=== PATIENT | male | born 1970 | race Caucasian/White ===

== ENCOUNTER → 2019-05-28 14:13 | Outpatient (CLI) | payer MEDICARE, SELFPAY ==
[2019-05-28 14:17] LABS: Bacteria 0 SEEN /hpf (None Seen); Mucous, Urine 0 SEEN /hpf (<or=2+); Red Blood Cells-Urine 0 SEEN /hpf (0-5); White Blood Cells 0 SEEN /hpf (0-5)
[2019-05-28 15:18] LABS: Color, Urine Yellow (Yellow); Glucose, Dipstick Normal (Normal); Ketone-Dipstick Negative (Negative); Leukocyte Esterase-Dipstick Negative /ul (Negative); Nitrite-Dipstick Negative (Negative); Occult Blood-Urine Negative /ul (Negative); Protein-Dipstick Negative (Negative); Urine Bilirubin Dipstick Negative (Negative); Urine Clarity Clear (Clear); Urine Urobilinogen Normal (Normal)
[2019-05-28 15:21] LABS: Absolute Lymphocyte Count 4.27 X10^3/uL (0.83-4.51); Absolute Neutrophil Count 5.2 X10^3/uL (2.0-7.7); Basophil# 0.09 X10^3/uL; Basophil% 0.8 % (0-1); Eosinophil# 0.39 X10^3/uL; Eosinophils% 3.6 % (0-5); Hematocrit 48.4 % (40-54); Hemoglobin 16.4 g/dL (13.0-16.5); Lymphocyte # 4.27 X10^3/ul (4.0); Lymphocyte % 39.1 % (19-41); Mean Corp Hgb Conc 33.9 g/dL (32-36); Mean Corpuscular Hgb 30.5 pg (27.0-32.0); Mean Corpuscular Volume 90.1 fL (80-94); Mean Platelet Vol. 10.7 fl (6.2-12.0); Monocyte# 0.96 X10^3/uL; Monocyte% 8.8 % (0-10); NRBC Flagged by Analyzer 0 % (0-5); Neutrophil # 5.18 X10^3/uL (2.7-7.7); Neutrophil % 47.3 % (47-70); Platelet Count 303 K/mm3 (150-450); RBC Distribution Width CV 12.7 % (11.6-14.6); RBC Distribution Width SD 42.3 fl (35.1-43.9); Red Blood Count 5.37 M/mm3 (4.6-6.2); White Blood Count 10.9 K/mm3 (4.4-11.0)
[2019-05-28 15:24] LABS: Squamous Epithelial Cells - UA 0-5 SEEN /hpf (0-5)
[2019-05-28 15:42] LABS: Vitamin B12 567 pg/mL (211-911)
[2019-05-28 15:55] LABS: ALB/GLOB Ratio 1.3 RATIO (0.9-2.4); AST(SGOT) 21 U/L (15-37); Alanine Aminotransfer ALT/SGPT 56 U/L (16-61); Albumin, Serum 4.3 g/dL (3.2-5.0); Alkaline Phosphatase 74 U/L (45-117); Anion Gap 5 (5-15); BUN 11 mg/dL (7-18); BUN/Creat Ratio 12.6 RATIO (10-20); Calcium,Total 9.2 mg/dL (8.5-10.1); Chloride 106 mmol/L (98-107); Creatinine, Serum 0.87 mg/dL (0.70-1.30); EST Glomerular Filtration Rate 98 mL/min (>60); Est Glom Filt Rate - Afr Amer 119 mL/min (>60); Globulin 3.2 g/dL (2.2-4.2); Glucose 77 mg/dL (74-106); Potassium 3.6 mmol/L (3.5-5.1); Protein, Total 7.5 g/dL (6.4-8.2); Sodium Level 139 mmol/L (136-145); Thyroid Stim Hormone (TSH) 3.27 uIU/mL (0.358-3.74)
== END ==
PROVIDERS: PCP Family Medicine; Referring Provider Family Medicine; Visit Provider Family Medicine
DX: I10 Essential (primary) hypertension (principal); G62.9 Polyneuropathy, unspecified
CPT/HCPCS: 36415; 80053; 81001; 82607; 84443; 85025

== ENCOUNTER → 2021-03-08 13:02 | Outpatient (CLI) | payer MEDICARE, SELFPAY ==
[2021-03-08 14:15] LABS: Absolute Lymphocyte Count 3.24 X10^3/uL (0.83-4.51); Absolute Neutrophil Count 5.2 X10^3/uL (2.0-7.7); Basophil# 0.08 X10^3/uL; Basophil% 0.8 % (0-1); Eosinophil# 0.55 X10^3/uL; Eosinophils% 5.6 % (0-5); Hematocrit 47.3 % (40-54); Hemoglobin 16.4 g/dL (13.0-16.5); Lymphocyte # 3.24 X10^3/ul (0.83-4.51); Lymphocyte % 33.1 % (19-41); Mean Corp Hgb Conc 34.7 g/dL (32-36); Mean Corpuscular Hgb 30.9 pg (27.0-32.0); Mean Corpuscular Volume 89.2 fL (80-94); Mean Platelet Vol. 10.5 fl (6.2-12.0); Monocyte# 0.76 X10^3/uL; Monocyte% 7.8 % (0-10); NRBC Flagged by Analyzer 0 % (0-5); Neutrophil # 5.15 X10^3/uL (2.7-7.7); Neutrophil % 52.5 % (47-70); Platelet Count 358 K/mm3 (150-450); RBC Distribution Width CV 12.4 % (11.6-14.6); White Blood Count 9.8 K/mm3 (4.4-11.0)
[2021-03-08 15:08] LABS: ALB/GLOB Ratio 1.2 RATIO (0.9-2.4); AST(SGOT) 20 U/L (15-37); Alanine Aminotransfer ALT/SGPT 42 U/L (16-61); Albumin, Serum 4.2 g/dL (3.2-5.0); Alkaline Phosphatase 94 U/L (45-117); Anion Gap 5 (5-15); BUN 14 mg/dL (7-18); BUN/Creat Ratio 15.6 RATIO (10-20); Calcium,Total 9.7 mg/dL (8.5-10.1); Chloride 107 mmol/L (98-107); Cholesterol 145 mg/dL (200); EST Glomerular Filtration Rate 95 mL/min (>60); Est Glom Filt Rate - Afr Amer 115 mL/min (>60); Globulin 3.5 g/dL (2.2-4.2); Glucose 103 mg/dL (74-106); High Density Lipoprotein 42 mg/dL; PSA,Total - Annual Screen 0.74 ng/mL (0.00-4.00); Protein, Total 7.7 g/dL (6.4-8.2); Sodium Level 141 mmol/L (136-145); Triglycerides 164 mg/dL; Very Low Density Lipoprotein 33 mg/dL (5-40)
== END ==
PROVIDERS: PCP Internal Medicine; Referring Provider Internal Medicine; Visit Provider Internal Medicine
DX: I10 Essential (primary) hypertension (principal); E55.9 Vitamin D deficiency, unspecified; Z12.5 Encounter for screening for malignant neoplasm of prostate; Z86.73 Personal history of transient ischemic attack (TIA), and cerebral infarction without residual deficits
CPT/HCPCS: 36415; 80053; 80061; 82306; 84153; 85025; G0103

== ENCOUNTER 2022-02-17 10:14 | Outpatient (CLI) | payer MEDICARE, SELFPAY ==
--- NOTE | 2022-02-17 10:42 | CT_ITS ---
STUDY: CT TEMPORAL BONES WITHOUT CONTRAST - ATTN: I.A.C. S REASON FOR EXAM: Male, 51 years old. CHRONIC MASTOIDITIS RADIATION DOSAGE (If Supplied By Facility): CTDIvol = ( 67.58 ) mGy, DLP = ( 2001.26 ) mGycm TECHNIQUE: The patient was scanned in a multi detector CT scanner. Transaxial imaging was performed without the administration of intravenous contrast material. Sagittal and coronal images were reconstructed. Individualized dose optimization techniques were used for this CT. COMPARISON: None. FINDINGS: RIGHT TEMPORAL BONE Normal right internal auditory canal. Normal visualized ossicles and tympanic cavity. Normal right cochlea and semicircular canals. Normal vestibular aqueduct. Normal right petrous carotid artery. Normal right jugular fossa. Normal right mastoid air cells. Normal right petrous apex. LEFT TEMPORAL BONE Normal left internal auditory canal. Normal visualized ossicles and tympanic cavity. Normal left cochlea and semicircular canals. Normal vestibular aqueduct. Normal left petrous carotid artery. Normal right jugular fossa. Normal left mastoid air cells. Normal left petrous apex. CT/Orb Sella Post Fossa Ear W/WO IMPRESSION: Normal unenhanced CT examination of the bilateral temporal bones (I.A.C.''s). Electronically Signed: Roberto Dubois MD at 12:07 [facility] ,
[2022-02-17 10:55] LABS: CREATININE FINGERSTICK < 0.9 mg/dL (0.70-1.30); EGFR FINGERSTICK > 60.0000 mL/min (>60)
== END 2022-02-17 23:59 | disposition home or self-care (01) ==
PROVIDERS: PCP Internal Medicine; Referring Provider Otolaryngology Otolaryngology/Facial Plastic Surgery; Visit Provider Otolaryngology Otolaryngology/Facial Plastic Surgery
DX: H70.13 Chronic mastoiditis, bilateral (principal)
CPT/HCPCS: 70482; Q9967

== ENCOUNTER → 2022-05-13 | Outpatient (CLI) | payer MEDICARE, SELFPAY ==
[2022-05-13 09:45] LABS: Absolute Lymphocyte Count 3.44 X10^3/uL (0.83-4.51); Absolute Neutrophil Count 5.2 X10^3/uL (2.0-7.7); Basophil# 0.08 X10^3/uL; Basophil% 0.7 % (0-1); Eosinophil# 1.06 X10^3/uL; Eosinophils% 9.8 % (0-5); Hematocrit 50.6 % (40-54); Hemoglobin 17.1 g/dL (13.0-16.5); Lymphocyte # 3.44 X10^3/ul (0.83-4.51); Lymphocyte % 31.7 % (19-41); Mean Corp Hgb Conc 33.8 g/dL (32-36); Mean Corpuscular Hgb 30.7 pg (27.0-32.0); Mean Corpuscular Volume 90.8 fL (80-94); Mean Platelet Vol. 10.7 fl (6.2-12.0); Monocyte# 1.01 X10^3/uL; Monocyte% 9.3 % (0-10); NRBC Flagged by Analyzer 0 % (0-5); Neutrophil # 5.22 X10^3/uL (2.7-7.7); Platelet Count 336 K/mm3 (150-450); RBC Distribution Width CV 13.2 % (11.6-14.6); RBC Distribution Width SD 43.8 fl (35.1-43.9); Red Blood Count 5.57 M/mm3 (4.6-6.2); White Blood Count 10.9 K/mm3 (4.4-11.0)
[2022-05-13 10:21] LABS: ALB/GLOB Ratio 1.3 RATIO (0.9-2.4); AST(SGOT) 20 U/L (15-37); Alanine Aminotransfer ALT/SGPT 38 U/L (16-61); Alkaline Phosphatase 102 U/L (45-117); Anion Gap 6 (5-15); BUN 16 mg/dL (7-18); Calcium,Total 9.3 mg/dL (8.5-10.1); Chloride 106 mmol/L (98-107); Cholesterol 118 mg/dL (200); EST Glomerular Filtration Rate 83 mL/min (>60); Est Glom Filt Rate - Afr Amer 101 mL/min (>60); Globulin 3.1 g/dL (2.2-4.2); Glucose 112 mg/dL (74-106); High Density Lipoprotein 49 mg/dL; Protein, Total 7.1 g/dL (6.4-8.2); Sodium Level 140 mmol/L (136-145); Triglycerides 120 mg/dL; Very Low Density Lipoprotein 24 mg/dL (5-40)
== END | disposition home or self-care (01) ==
LOC: LAB 08:53
PROVIDERS: PCP Internal Medicine; Visit Provider Internal Medicine
DX: I10 Essential (primary) hypertension (principal); I63.9 Cerebral infarction, unspecified; E78.5 Hyperlipidemia, unspecified
CPT/HCPCS: 36415; 80053; 80061; 85025

== ENCOUNTER → 2022-05-18 | Outpatient (CLI) | payer MEDICARE, SELFPAY ==
--- NOTE | 2022-05-18 13:56 | ECHOD_ITS ---
Reason For Study: AORTIC ROOT DILATATION Procedure This was a 2D Doppler, Color Flow transthoracic echocardiogram. Exam performed in department. Left Ventricle Normal LV size. Left ventricular systolic function is normal. The estimated ejection fraction is 70 %. Normal diastology for age. No regional wall motion abnormalities noted. Right Ventricle Normal RV size. Normal systolic function. Atria Normal left atrium. Normal right atrium. Mitral Valve Normal mitral valve. Trivial eccentric mitral valve insufficiency. Tricuspid Valve Normal tricuspid valve. Mild tricuspid valve insufficiency. Pulmonary artery systolic pressure is 22 mmHg. Aortic Valve Normal aortic valve. Trisinus/trileaflet aortic valve. Pulmonic Valve Normal pulmonic valve. Great Vessels Normal aortic root. The ascending aorta is mild-moderately dilated. The pulmonary artery is normal size. Normal inferior vena cava. Pericardium/Pleural No pericardial effusion. MMode/2D Measurements & Calculations LVIDd: 4.9 cm IVSd: 0.81 cm Ao root diam: 3.7 cm LVIDs: 3.3 cm LVPWd: 0.87 cm RVDd: 3.5 cm FS: 32.6 % LAV(MOD-bp): 33.9 ml LVAd ap4: 37.3 cm2 SV(MOD-sp4): 81.0 ml LAV(MOD-bp) Indexed: 16.8 ml/m2 LVLd ap4: 9.2 cm LAV(MOD-sp2): 33.0 ml EDV(MOD-sp4): 123.3 ml LAV(MOD-sp4): 30.9 ml EDV(sp4-el): 127.8 ml LVAs ap4: 18.9 cm2 LVLs ap4: 7.3 cm ESV(MOD-sp4): 42.3 ml ESV(sp4-el): 41.6 ml EF(MOD-sp4): 65.7 % EF(sp4-el): 67.4 % SV(sp4-el): 86.2 ml LA A4 area: 12.5 cm2 LA dimension(2D): 3.0 cm RA A4 area: 12.0 cm2 Time Measurements MV dec time: 0.25 sec Doppler Measurements & Calculations MV E max etienne: 75.3 cm/sec Lat Peak E' Etienne: 12.8 cm/sec Med Peak E' Etienne: 9.4 cm/sec MV A max etienne: 56.0 cm/sec E/E' lat: 5.9 E/E' med: 8.0 MV E/A: 1.3 Ao V2 max: 150.4 cm/sec LV V1 max: 155.5 cm/sec PA V2 max: 91.9 cm/sec Ao max P.1 mmHg LV V1 max P.7 mmHg TR max etienne: 222.9 cm/sec TR max P.9 mmHg ECHO/Echo Complete Interpretation Summary Normal LV size. Left ventricular systolic function is normal. The estimated ejection fraction is 70 %. The ascending aorta is mild-moderately dilated.Measuring 4.1cm Pulmonary artery systolic pressure is 22 mmHg. Ordering Physician: Callie Brannon Referring Physician: CALLIE BRANNON Performed By: Mary Jensen RDCS
== END | disposition home or self-care (01) ==
LOC: CVS 13:53
PROVIDERS: PCP Internal Medicine; Visit Provider Internal Medicine
DX: T75.4XXA Electrocution, initial encounter (principal); I77.810 Thoracic aortic ectasia
CPT/HCPCS: 93306

== ENCOUNTER → 2024-11-18 | Outpatient (CLI) | payer MEDICARE, SELFPAY ==
--- NOTE | 2024-11-18 12:59 | CDU_ITS ---
Reason For Study Reason For Study: Carotid Atherosclerosis Rt. Velocities/BP Lt. Velocities/BP Prox CCA 106/12 cm/sec. Prox CCA 148/41 cm/sec. Mid CCA 100/17 cm/sec. Mid CCA 90/29 cm/sec. Dist CCA 73/18 cm/sec. Dist CCA 97/30 cm/sec. Prox ICA 0 cm/sec. Prox ICA 214/91 cm/sec. Mid ICA 0 cm/sec. Mid ICA 164/52 cm/sec. Dist ICA 0 cm/sec. Dist ICA 133/56 cm/sec. Rt. ICA/CCA = 0. Lt. ICA/CCA = 2.4. Prox ECA 117/27 cm/sec. Prox ECA 117/26 cm/sec. Rt. Vert. 92/37 cm/sec. Lt. Vert. 17/0 cm/sec. Right Extracranial There is heterogeneous, irregular atherosclerotic plaque noted in the right common carotid artery. There is heterogeneous, irregular atherosclerotic plaque noted in the right internal carotid artery. The right internal carotid artery is occluded. There is heterogeneous, irregular atherosclerotic plaque noted in the right external carotid artery. Antegrade flow is noted in the right vertebral artery. Left Extracranial There is heterogeneous, irregular atherosclerotic plaque noted in the left common carotid artery. There is heterogeneous, irregular atherosclerotic plaque noted in the left internal carotid artery. There is intimal thickening but no significant atherosclerotic plaque noted in the left external carotid artery. Antegrade flow is noted in the left vertebral artery. Very minimal flow noted Lt Vert A. Procedure Carotid Duplex 41618. This is a Carotid Duplex examination using B-mode, color flow and specral Doppler. Exam performed in department. 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 Moderate (50- 69%) stenosis left extracranial internal carotid. Flow within the vertebral arteries is antegrade bilaterally. However, minimal flow is noted in the left vertebral artery. Ordering Physician: Callie Henriquez Referring Physician: Callie Henriquez Performed By: Marifer Panda, [place], RVT
--- OUTSIDE RECORDS SUMMARY | 2024-11-18 22:54 | XMS RPT_ITS | CCD ---
Author Organization [facility] Care Team Providers Care Software Quality Test Engineer Name Role Phone Unavailable Primary Care Provider UnavailDr. Callie Morales Primary Care Provider Dr. Callie Henriquez Attending Provider [phone] Dr. Nick Reynolds Attending Provider [phone] Callie Henriquez MD Primary Care Provider Dr. Callie Henriquez MD Attending Provider Callie Henriquez Attending Unavailable Callie Henriquez Primary Care Unavailable Callie Henriquez Primary Care Unavailable Callie Henriquez Attending Unavailable Callie Henriquez Primary Care Unavailable Callie Henriquez Referring Unavailable Callie Henriquez Attending Unavailable Allergies Allergy Classification Reported Allergen(s) Allergy Type Date of Onset Reaction(s) Facility (1 source) bee venom Propensity to adverse reactions to drug 1 Anaphylaxis [facility] (4 sources) Penicillins; Translations: [Penicillins] Propensity to adverse reactions to drug 1 Anaphylaxis [facility] Work Phone: (1 source) Sulfonamides (Antibiotic) Propensity to adverse reactions to drug 1 Anaphylaxis [facility] Work Phone: (1 source) Sulfonamides (Antibiotic) Allergy to substance 3 unknown [facility] (1 source) Sulfonamides (Antibiotic) Allergy to substance 5 NEEDS FOLLOW-UP [facility] (1 source) Sulfonamides (Antibiotic) Drug allergy (disorder) 5 [facility] Repository Medications Current Medications Medication Drug Class(es) Dates Sig (Normalized) Sig (Original) acetaminophen 500 mg oral capsule (1 source) Start: 01-27-2025 take 1 capsule by mouth every six hours as needed Acetaminophen 500 mg capsule Active 500 mg PO EVERY 6 HOURS as needed April 29, 2024 1:00am amLODIPine 5 mg oral tablet (12 sources) Dihydropyridine Calcium Channel Anisa Start: 02-24-2021 End: 12-07-2023 take 1 tablet by mouth once daily Amlodipine 5 mg tablet Active 5 mg PO DAILY 90 December 07, 2023 3:31pm Start: 02-13-2021 take 1 tablet by gisela th once daily amLODIPine (NORVASC) 5 MG tablet Take 1 tablet by mouth daily 30 tablet 3 02/13/2021 Active Start: 02-11-2021 amLODIPine (NO RVASC) tablet 5 mg aspirin 81 mg delayed release oral tablet (12 sources) Platelet Aggregation Inhibitor, Nonsteroidal Anti-inflammatory Drug Start: 02-24-2021 End: 01-12-2024 Aspirin (Adult Low Dose Aspirin) 81 mg tablet,delayed release (DR/EC) Active 81 mg PO DAILY 90 January 12, 2024 11:04am Start: 02-13-2021 take 1 tablet by gisela th once daily aspirin 81 MG EC tablet Take 1 tablet by mouth daily 30 tablet 3 02/13/2021 Active Start: 02-10-2021 aspirin EC tab let 81 mg atorvastatin 80 mg oral tablet (13 sources) HMG-CoA Reductase Inhibitor Start: 02-24-2021 End: 12-07-2023 take 1 tablet by mouth once daily Atorvastatin 80 mg tablet Active 80 mg PO DAILY 90 December 07, 2023 3:31pm Start: 02-11-2021 take 1 tablet by gisela th once daily atorvastatin (LIPITOR) 80 MG tablet Take 1 tablet by mouth nightly 30 tablet 3 02/12/2021 Active Start: 02-09-2021 End: 02-11-2021 atorvastatin (LIPITOR) table t 40 mg clopidogrel 75 mg oral tablet (15 sources) P2Y12 Platelet Inhibitor Start: 02-24-2021 End: 12-07-2023 take 1 tablet by mouth once daily Clopidogrel (Plavix) 75 mg tablet Active 75 mg PO DAILY 90 December 07, 2023 3:31pm Start: 02-13-2021 take 1 tablet by gisela th once daily clopidogrel (PLAVIX) 75 MG tablet Take 1 tablet by mouth daily 30 tablet 2 02/13/2021 Active Start: 02-11-2021 clopidogrel (P LAVIX) tablet 75 mg Start: 02-10-2021 clopidogrel (P LAVIX) tablet 300 mg 0.4 ml enoxaparin sodium 100 mg/ml prefilled syringe (1 source) Low Molecular Weight Heparin Start: 02-10-2021 enoxaparin (LOVENOX) injection 40 mg labetalol hydrochloride 5 mg/ml injectable solution (2 sources) beta-Adrenergic Anisa Start: 02-09-2021 labetalol (NORMODYNE;TRANDATE) injection 10 mg levocetirizine dihydrochloride 5 mg oral tablet (2 sources) Histamine-1 Receptor Antagonist Start: 10-11-2021 take 1 tablet by mouth once daily as needed Levocetirizine 5 mg tablet Active 5 mg PO DAILY as needed for allergies 30 October 11, 2021 12:00am Multivitamin tablet (1 source) Start: 04-29-2024 Multivitamin tablet Active 1 {tbl} PO daily April 29, 2024 1:00am 2 ml ondansetron 2 mg/ml injection (1 source) Serotonin-3 Receptor Antagonist Start: 02-09-2021 ondansetron (ZOFRAN) injection 4 mg perflutren lipid microspheres (DEFINITY) injection 1.65 mg (1 source) Start: 02-09-2021 End: 02-12-2021 perflutren lipid microspheres (DEFINITY) injection 1.65 mg 1000 ml sodium chloride 9 mg/ml injection (7 sources) Start: 02-09-2021 End: 02-12-2021 sodium chloride flush 0.9 % injection 5-40 mL Start: 02-09-2021 0.9 % sodium c hloride infusion Start: 02-09-2021 End: 02-09-2021 0.9 % sodium chloride bolus Completed/Discontinued Medications Medication Drug Class(es) Dates Sig (Normalized) Sig (Original) cefuroxime 500 mg oral tablet (1 source) Cephalosporin Antibacterial Start: 10-30-2023 End: 04-29-2024 take 1 tablet by mouth twice daily Cefuroxime Axetil 500 mg tablet Discontinued 500 mg PO TWICE A DAY 14 October 30, 2023 12:00am April 29, 2024 11:10am fluticasone propionate 0.05 mg/actuat metered dose nasal spray (2 sources) Corticosteroid Start: 10-11-2021 End: 04-29-2024 Fluticasone Propionate 50 mcg/actuation spray,suspension Discontinued 1 NMA INTRANASAL TWICE A DAY as needed for allergies, congestion 16 October 11, 2021 12:00am April 29, 2024 11:08am administer into each nostril Start: 10-11-2021 take 1 spray(s) nasa l route twice daily Fluticasone Propionate Active 1 SPRAY INTRANASAL TWICE A DAY October 10, 2021 11:00pm administer into each nostril hydrocortisone 10 mg/ml / neomycin 3.5 mg/ml / polymyxin b [id number] unt/ml otic solution (6 sources) Aminoglycoside Antibacterial, Polymyxin-class Antibacterial, Corticosteroid Start: 06-21-2021 End: 05-09-2022 Ldzdzcwy-Cpkltftyb-St 3.5-10,000-1 mg/mL-unit/mL-% solution Discontinued 4 NMA OTIC THREE TIMES A DAY as needed for Ear infection October 11, 2021 3:51pm May 09, 2022 10:55am Start: 06-21-2021 End: 05-09-2022 Qoburfil-Itnysputl-Ga Discon tinued 4 DRP OTIC THREE TIMES A DAY October 11, 2021 2:51pm May 09, 2022 9:55am Problems Problem Classification Problem Date Documented Date Episodic/Chronic Acute cerebrovascular disease (8 sources) Cerebrovascular accident; Translations: [Cerebral infarction, unspecified] Onset: 02-09-2021 Chronic Aortic; peripheral; and visceral artery aneurysms (5 sources) Aortic root dilatation; Translations: [Thoracic aortic ectasia] Onset: 10-28-2024 05-09-2022 Chronic Disorders of lipid metabolism (8 sources) Hyperlipidemia; Translations: [Hyperlipidemia, unspecified] 02-24-2021 Chronic Essential hypertension (6 sources) Essential hypertension; Translations: [Essential (primary) hypertension] Onset: 02-09-2021 Chronic Heart valve disorders (1 source) Cardiac murmur, unspecified; Translations: [Cardiac murmur, unspecified] Onset: 10-28-2024 Episodic Joint disorders and dislocations; trauma-related (2 sources) Subluxation complex (vertebral); Translations: [Subluxation complex (vertebral) of rib cage] 11-01-2021 Episodic Late effects of cerebrovascular disease (2 sources) Sequela of cerebrovascular accident; Translations: [Unspecified sequelae of cerebral infarction] Onset: 10-28-2024 10-28-2024 Chronic Comment on above: right arm pain,numbn ess, pain right lateral chest wall Occlusion or stenosis of precerebral arteries (2 sources) Occlusion and stenosis of bilateral carotid arteries; Translations: [Occlusion and stenosis of unspecified carotid artery] Onset: 10-28-2024 Chronic Other injuries and conditions due to external causes (2 sources) Accident caused by electric current; Translations: [Electrocution, initial encounter] Onset: 02-09-2021 Episodic Other injuries and conditions due to external causes (2 sources) by electrocution; Translations: [Electrocution, initial encounter] 04-22-2021 Episodic Other injuries and conditions due to external causes (1 source) Electrocution, initial encounter; Translations: [Accident caused by unspecified electric current] 05-09-2022 Episodic Other nervous system disorders (2 sources) History of perforated tympanic membrane; Translations: [Personal history of other diseases of the nervous system and sense organs] 06-25-2021 Episodic Other nervous system disorders (1 source) Personal history of other diseases of the nervous system and sense organs; Translations: [Personal history of other disorders of nervous system and sense organs] 05-09-2022 Episodic Residual codes; unclassified (2 sources) Obstructive sleep apnea syndrome; Translations: [Obstructive sleep apnea (adult) (pediatric)] Onset: 02-09-2021 Chronic Residual codes; unclassified (2 sources) Tobacco use and exposure - finding; Translations: [Tobacco use] Onset: 02-09-2021 Episodic Spondylosis; intervertebral disc disorders; other back problems (1 source) Low back pain; Translations: [Lumbar back pain] 04-29-2024 Episodic Substance-related disorders (3 sources) Cigarette smoker ; Translations: [Nicotine dependence, cigarettes, uncomplicated] Onset: 10-28-2024 11-03-2022 Chronic Unclassified (1 source) Late effect of cerebrovascular accident (CVA) Unclassified (1 source) I63.9 - Cerebral infarction, unspecified,I69.30 - Unspecified sequelae of cerebral infarction Results Test Name Value Interpretation Reference Range Facility MR/BMS.[facility] 10-28-2024 MR/BMS.[facility] [address] [place], [place] [address] OFFICE VISIT Date of Service: 10/28/24 MR#: [id number] Acct: [id number] Name: JOSELITO GARRETT Rep #: [id number] : 1970 Provider: Dr. Callie richardson MD Age/Sex: 54/M Location: [facility] Status: Signed Intake Vital Signs 04/29/24 10:14 10/28/24 08:52 Height 6 ft 1 in 6 ft 1 in Weight: 170 lb 6 oz 173 lb 6 oz BMI 22.4 22.8 BP 147/86 H 161/96 H Blood Pressure Location Rt brachial Lt brachial Position Sitting Sitting Respiration 16 16 Pulse 71 62 Pulse Source Monitor Monitor Temp 98.6 F 98.9 F Temp Source Temporal Temporal Pulse Oximetry (%) 96 98 Oxygen Delivery Method room air room air Intake Visit Reasons: 6 M FU Chief Complaint: Right arm/side pain Tank Cooper Required: No Accompanied by: Self Is patient in pain?: Yes (Right shoulder/arm/side) Pain scale (1-10): 8 Allergies Penicillins Allergy (Severe, Verified 10/28/24 08:46) Anaphylaxis Sulfa (Sulfonamide Antibiotics) (sulfa drugs) Allergy (Verified 10/28/24 08:46) NEEDS FOLLOW-UP Medications ???Medication ???Instructions ???Recorded ???Confirmed ???Type levocetirizine 5 mg tablet 5 mg PO DAILY PRN allergies #30 10/28/24 Rx tabs amlodipine 5 mg tablet 5 mg PO DAILY #90 tabs 12/07/23 Rx atorvastatin 80 mg tablet 80 mg PO DAILY #90 tabs 12/07/23 0 10/28/24 Rx clopidogrel 75 mg tablet (Plavix) 75 mg PO DAILY #90 tabs 12/07/23 10/28/24 Rx aspirin 81 mg tablet,delayed 81 mg PO DAILY #90 tabs 01/12/24 0 10/28/24 Rx release (Adult Low Dose Aspirin) acetaminophen 500 mg capsule 500 mg PO Q6H PRN 04/29/24 5 History multivitamin 1 tab PO QDAY 04/29/24 10/28/24 Hi story [facility] Medical History Lumbar back pain Left toe amputee Surgical History History of surgery on left wrist Family History Other Heart disease Hypertension Social History Smoking Status: Current every day smoker alcohol intake: never substance use type: does not use HPI HPI Chief Complaint: Right arm/side pain Details: JOSELITO GARRETT, is a 54 M who presents to the office today for 6-month follow-up. Patient has a history of hypertension on amlodipine 5 mg daily. He also has a history of CVA, on high-dose statin, aspirin and Plavix regimen. He continues to have ongoing pain, in the right lateral chest wall area, or he has ongoing numbness tingling and discomfort, as well as the right upper extremity, tingling in his toes but that is not typically that bothersome for him. He wonders about pain management. Remotely he had been on gabapentin and does not want to do that again for the neurologic symptoms. We have discussed in the past about a trial of chiropractic to ensure that some of the discomfort is not coming from his neck perhaps. That had not been completed. We discussed in the past imaging of the neck but once again that has not been completed. He would like to see pain management and discuss with them. Consult was placed for Dr. Colby. Unfortunately does continue to smoke cigarettes, between a pack and 1/2 to 2 packs/day. 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 Carotid ultrasound should be updated at this point. He has been continuing to take high-dose statin for secondary prevention. He is also again on aspirin and Plavix. He does have a history of mildly to moderately dilated aortic root. Last echo was in 2022 and that should be updated. He continues to decline colonoscopy. We have sent Cologuard out but that had never been returned. He states he still has the box at home. Review of systems per chart. Physical exam. Vital signs on chart. PERRLA. Sclera are clear. TMs are unremarkable with normal light reflexes. Canals are unremarkable. Posterior pharynx is unremarkable. No obvious oral mucosal lesions. Good dentition. No cervical or supraclavicular lymph nodes enlarged or tender. No clear thyromegaly. No thyroid nodules readily palpable. Lungs are without wheeze, rhonchi, rales. No E/A changes are heard. Heart is regular. Not tachycardic. No clear murmur, rub, or gallop is identified. The abdomen is soft. Bowel sounds are present. Nontender nondistended abdomen. No clear palpable masses in the abdomen. No significant leg edema. Cranial nerve examination 2 through 12 are grossly unremarkable nonlateralizing. Deep tendon reflexes at the bicep, tricep, brachial on the right mildly hyperreflexic in comparison with the left. Mildly hyperreflexic at the right patella in comparison with the left. ROS Const Constitutional: No body ache, (more content not included)... Normal [facility] MR/BMS.[facility] 04-29-2024 MR/BMS.[facility] [address] [facility] [place] [address] OFFICE VISIT Date of Service: 04/29/24 MR#: [id number] Acct: [id number] Name: JOSELITO GARRETT Rep #: [id number] : 1970 Provider: Dr. Callie richardson MD Age/Sex: 53/M Location: [facility] Status: Signed Intake Vital Signs 10/30/23 09:49 04/29/24 10:14 Height 6 ft 1 in 6 ft 1 in Weight: 174 lb 6 oz 170 lb 6 oz BMI 23.0 22.4 BP 133/85 H 147/86 H Blood Pressure Location Lt brachial Rt brachial Position Sitting Sitting Respiration 16 16 Pulse 67 71 Pulse Source Monitor Monitor Temp 98.6 F 98.6 F Temp Source Temporal Temporal Pulse Oximetry (%) 99 96 Oxygen Delivery Method room air room air Intake Visit Reasons: 6 M FU Chief Complaint: 6 m fu Tank Cooper Required: No Accompanied by: Self Is patient in pain?: Yes (R side of body and back) Pain scale (1-10): 6 Allergies Penicillins Allergy (Severe, Verified 04/29/24 09:50) Anaphylaxis Sulfa (Sulfonamide Antibiotics) (sulfa drugs) Allergy (Verified 04/29/24 09:50) NEEDS FOLLOW-UP Medications ???Medication ???Instructions ???Recorded ???Confirmed ???Type levocetirizine 5 mg tablet 5 mg PO DAILY PRN allergies #30 10/11/21 04/29/24 Rx tabs amlodipine 5 mg tablet 5 mg PO DAILY #90 tabs 12/07/23 04/29/24 Rx atorvastatin 80 mg tablet 80 mg PO DAILY #90 tabs 12/07/23 04/29/24 Rx clopidogrel 75 mg tablet (Plavix) 75 mg PO DAILY #90 tabs 12/07/23 04/29/24 Rx aspirin 81 mg tablet,delayed 81 mg PO DAILY #90 tabs 01/12/24 04/29/24 Rx release (Adult Low Dose Aspirin) acetaminophen 500 mg capsule 500 mg PO Q6H PRN 04/29/24 04/29/24 History multivitamin 1 tab PO QDAY 04/29/24 04/29/24 History PFSH Medical History (Updated 04/29/24 @ 13:[address] Callie Henriquez MD) Lumbar back pain Left toe amputee Surgical History History of surgery on left wrist Family History Other Heart disease Hypertension Social History Smoking Status: Current every day smoker alcohol intake: never substance use type: does not use HPI HPI Chief Complaint: 6 m fu Details: JOSELITO GARRETT, is a 53 M who presents to the office today for 6-month follow-up. 53-year-old gentleman who has a history of CVA, several years ago, leaving him with right-sided numbness tingling, weakness. We discussed again briefly at this visit he is probably not going to gain much more improvements that he has at this point. Still remains clearly disappointed that he actually had stroke to begin with. He has essential hypertension, hyperlipidemia, and long-term cigarette smoker. Continues to smoke. Relatively recently, had right ear pain, with some drainage. Did go to urgent care, received antibiotic, and by description was probably Zithromax. He took that, and very quickly had resolution to his symptoms. Currently no pain no drainage. This has been an on again off again issue for him. More bothersome has been back pain relatively recently. He notes that he has a sleep number bed system at home. He states recently, some work was done in the home, and some changes were made in the bed and he really did not recognize what was happening but a couple of days in row he woke up in the morning with severe back pain, and then thereafter, really over the last couple of months, it sounds like he has been having ongoing back pain. He describes basically in the low back. He is does have some chronic discomfort on the right side post CVA but this is clearly different he states. There is no clear radicular symptoms. No loss of bowel or bladder continence, numbness and tingling in the perineal area. No new numbness or tingling in the legs that are any different than his poststroke symptoms. Remotely had seen chiropractic but nothing recent. He states that he has been unable to crack his back which she has done over the years in the past and that helps his low back he states. However has been unable to do so recently. Review of systems per chart. Physical exam. Vital signs on chart. PERRLA. Sclera are clear. No cervical or supraclavicular lymph nodes enlarged or tender. No clear thyromegaly. No thyroid nodules readily palpable. Lungs are without wheeze, rhonchi, rales. No E/A changes are heard. Heart is regular. Not tachycardic. No clear murmur, rub, or gallop is identified. The abdomen is soft. Bowel sounds are present. Nontender nondistended abdomen. No clear palpable masses in the abdomen. No significant leg edema. Cranial nerve examination 2 through 12 are grossly unremarkable nonlateralizing. No rash across the low back, mild diffuse paraspinal muscle spasm and tenderness throughout the lumbar reg (more content not included)... Normal [facility] Absolute lymphocyte countOrd ered By: Dr. Henriquez on 05-13-2022 Lymphocytes Auto (Unsp spec) [#/Vol] 3.44 10*3/uL 0.83-4.51 [facility] Basophil percentageOrdered B y: Dr. Henriquez on 05-13-2022 Basophils/100 WBC (Bld) 0.7 % 0-1 [facility] Bilirubin [Mass/Vol] 0.60 mg/dL 0.20-1.00 [facility] Comment on above: For patients on eltr ombopag therapy, use of Dimension Zeigler TBIL is not recommended. Chloride [Moles/Vol] 106 mmol/L 98-107 [facility] Cholesterol [Mass/Vol] 118 mg/dL <200 [facility] Comment on above: <200 mg/dL Desirable 200-240 mg/dL Borderline >240 mg/dL High Risk Eosinophils/100 WBC (Bld) 9.8 % 0-5 [facility] Glucose [Mass/Vol] 112 mg/dL 74-106 [facility] Comment on above: Fasting Glucose resu lt from 100 to 125 mg/dL suggests IMPAIRED HOMEOSTASIS per A.D.A. criteria. Neutrophils (Bld) [#/Vol] 5.2 10*3/uL 2.0-7.7 [facility] Neutrophils/100 WBC (Bld) 48.0 % 47-70 [facility] Potassium [Moles/Vol] 4.0 mmol/L 3.5-5.1 [facility] Protein [Mass/Vol] 7.1 g/dL 6.4-8.2 [facility] Sodium [Moles/Vol] 140 mmol/L 136-145 [facility] Triglyceride [Mass/Vol] 120 mg/dL <199 [facility] Comment on above: The drugs N-Acetylcy steine and Metamizole may falsely depress this assay.Serum Triglycerides Reference Interval Normal <150 mg/dL Borderline high 150 - 199 mg/dL High 200 - 499 mg/dL Very High > or = 500 mg/dL WBC (Bld) [#/Vol] 10.9 10*3/uL 4.4-11.0 [facility] Blood erythrocytes count (nu mber/volume)Ordered By: Dr. Henriquez on 05-13-2022 RBC (Bld) [#/Vol] 5.57 10*6/uL 4.6-6.2 [facility] Blood hemoglobin measurement (mass/volume)Ordered By: Dr. Henriquez on 05-13-2022 Hemoglobin (Bld) [Mass/Vol] 17.1 g/dL 13.0-16.5 [facility] Blood lymphocytes/100 leukoc ytesOrdered By: Dr. Henriquez on 05-13-2022 Lymphocytes/100 WBC (Bld) 31.7 % 19-41 [facility] Blood monocytes/100 leukocyt esOrdered By: Dr. Henriquez on 05-13-2022 Monocytes/100 WBC (Bld) 9.3 % 0-10 [facility] Blood platelet mean volumeOr dered By: Dr. Henriquez on 05-13-2022 Platelet mean volume (Bld) [Entitic vol] 10.7 fL 6.2-12.0 [facility] Determination of erythrocyte mean corpuscular volume (MCV)Ordered By: Dr. Henriquez on 05-13-2022 MCV (RBC) [Entitic vol] 90.8 fL 80-94 [facility] Hematocrit Auto (Bld) [Volum e fraction]Ordered By: Dr. Henriquez on 05-13-2022 Hematocrit (Bld) [Volume fraction] 50.6 % 40-54 [facility] Laboratory - Chemistry and C hemistry - challengeOrdered By: Dr. Henriquez on 05-13-2022 ALP [Catalytic activity/Vol] 102 U/L 45-117 [facility] ALT [Catalytic activity/Vol] 38 U/L 16-61 [facility] CO2 [Moles/Vol] 28.0 mmol/L 21.0-32.0 [facility] Globulin (S) [Mass/Vol] 3.1 g/dL 2.2-4.2 [facility] Urea nitrogen/Creatinine [Mass ratio] 16.0 mg/mg 10-20 [facility] Laboratory - Hematology and Cell countsOrdered By: Dr. Henriquez on 05-13-2022 Erythrocyte distribution width (RBC) [Entitic vol] 43.8 fL 35.1-43.9 [facility] Erythrocyte distribution width (RBC) [Ratio] 13.2 % 11.6-14.6 [facility] Immature granulocytes/100 WBC (Bld) 0.500 % 0.0-0.9 [facility] Comment on above: IG% - Immature Granu locytes (promyelocytes, myelocytes and metamyelocytes) > 1% indicates that a LEFT SHIFT is Present. MCH (RBC) [Entitic mass] 30.7 pg 27.0-32.0 [facility] Nucleated RBC/100 WBC (Bld) [Ratio] 0 % 0-5 [facility] MCHC Auto (RBC) [Mass/Vol]Or dered By: Dr. Henriquez on 05-13-2022 MCHC (RBC) [Mass/Vol] 33.8 g/dL 32-36 [facility] No Panel InformationOrdered By: Dr. Henriquez on 05-13-2022 Estimated GFR (MDRD) Amer 101 mL/min >60 [facility] Comment on above: GFR Calc Estimated GFR (MDRD) Non-Af Amer 83 mL/min >60 [facility] Comment on above: Non- GFR Calc Platelets bldOrdered By: Dr. Henriquez on 05-13-2022 Platelets (Bld) [#/Vol] 336 10*3/uL 150-450 [facility] Serum or plasma albumin ken urement (mass/volume)Ordered By: Dr. Henriquez on 05-13-2022 Albumin [Mass/Vol] 4.0 g/dL 3.2-5.0 [facility] Serum or plasma albumin/glob ulin mass ratioOrdered By: Dr. Henriquez on 05-13-2022 Albumin/Globulin [Mass ratio] 1.3 {ratio} 0.9-2.4 [facility] Serum or plasma calcium ken urement (mass/volume)Ordered By: Dr. Henriquez on 05-13-2022 Calcium [Mass/Vol] 9.3 mg/dL 8.5-10.1 [facility] Serum or plasma cholesterol in HDL measurement (mass/volume)Ordered By: Dr. Henriquez on 05-13-2022 Cholesterol in HDL [Mass/Vol] 49 mg/dL >40 [facility] Comment on above: The drugs N-Acetylcy steine and Metamizole may falsely depress this assay. Reference Range HDL <40 mg/dL Low HDL Cholesterol HDL >or= 60 mg/dL High HDL Cholesterol Serum or plasma cholesterol in VLDL measurement (mass/volume)Ordered By: Dr. Henriquez on 05-13-2022 Cholesterol in VLDL [Mass/Vol] 24 mg/dL 5-40 [facility] Serum or plasma creatinine m easurement (mass/volume)Ordered By: Dr. Henriquez on 05-13-2022 Creatinine [Mass/Vol] 1.00 mg/dL 0.70-1.30 [facility] Comment on above: The validity of the calculated GFR & GFRAA in patients over 70 years has not been determined. Clinical correlation is essential. Serum or plasma low density lipoprotein (LDL) cholesterol measurement (mass/volume)Ordered By: Dr. Henriquez on 05-13-2022 Cholesterol in LDL [Mass/Vol] 45 mg/dL 0-130 [facility] Serum or plasma urea nitroge n measurement (mass/volume)Ordered By: Dr. Henriquez on 05-13-2022 Urea nitrogen [Mass/Vol] 16 mg/dL 7-18 [facility] Thin prep Papanicolaou smear with manual screeningOrdered By: Dr. Henriquez on 05-13-2022 Thin prep Papanicolaou smear with manual screening 20 U/L 15-37 [facility] Thin prep Papanicolaou smear with manual screening 6 5-15 [facility] Basophil percentageOrdered B y: Dr. Landaverde on 02-17-2022 Basophil percentage < 0.9 mg/dL 0.70-1.30 [facility] No Panel InformationOrdered By: Dr. Landaverde on 02-17-2022 Bedside Estimated GFR (eGFR) > 60.0000 mL/min >60 [facility] Basic Metabolic Panelon 02-01 Anion gap [Moles/Vol] 8 mmol/L Normal 3-13 [facility] Comment on above: Performed By: #### H ABUNDIO LOVELL1C2 #### [facility] [employer] [facility] [address] [place] [address] Calcium [Mass/Vol] 8.7 mg/dL Normal 8.4-10.4 [facility] Comment on above: Performed By: #### H LILIYA HA1C2 #### [facility] [address] [place] [address] CO2 [Moles/Vol] 22 mmol/L Normal 22-30 [facility] Comment on above: Performed By: #### H ABUNDIO LOVELL1C2 #### [facility] [address] [place], [place] Glucose [Mass/Vol] 101 mg/dL High 70-100 [facility] Comment on above: Performed By: #### ABUNDIO RAPHAEL1C2 #### [facility] [address] [place], [place] Urea nitrogen [Mass/Vol] 11 mg/dL Normal 7-17 [facility] Comment on above: Performed By: #### ABUNDIO RAPHAEL1C2 #### [address] [address] [place], [place] Creatinine [Mass/Vol] 0.67 mg/dL Normal 0.52-1.25 [facility] Comment on above: Performed By: #### ABUNDIO RAPHAEL1C2 #### [facility] [address] [place], [place] eGFR OTHER > 90.0 Normal >60 [facility] Comment on above: Result Comment: KDIG O guidelines provide the following GFR categories: Stage GFR(ml/min/1.73 m2) Terms G1 >=90 Normal or high G2 60-89 Mildly decreased* G3a 45-59 Mildly to moderately decreased G3b 30-44 Moderately to severely decreased G4 15-29 Severely decreased G5 <15 Kidney failure *Relative to young adult level. In the absence of evidence of kidney damage, neither GFR category G1 nor G2 fulfill the criteria for CKD. The CKD-EPI equation is validated in individuals 18 years of age and older. Currently the best equation for estimating glomerular filtration rate (GFR) from serum creatinine in children is the Bedside Kenny equation. It is less accurate in patients with extremes of muscle mass, restriction of dietary protein, ingestion of creatine, extra-renal metabolism of creatinine, or treatment with medications that affect renal tubular creatinine secretion. Performed By: #### Derrek LOVELL HA1C2 #### [facility] [address] [place], [place] GFR/1.73 sq M.predicted among blacks MDRD (S/P/Bld) [Vol rate/Area] mL/min/{1.73_m2} Normal >60 [facility] Comment on above: Performed By: #### H LILIYA HA1C2 #### [facility] [address] [place], [place] Potassium [Moles/Vol] 3.7 mmol/L Normal 3.5-5.1 [facility] Comment on above: Performed By: #### H LILIYA HA1C2 #### [facility] [address] [place], [place] Sodium [Moles/Vol] 137 mmol/L Normal 135-145 [facility] Comment on above: Performed By: #### H LILIYA HA1C2 #### [facility] [address] [place], [place] Chloride [Moles/Vol] 108 mmol/L High 98-107 [facility] Comment on above: Performed By: #### H LILIYA HA1C2 #### [facility] [address] [place], [place] Anion gap [Moles/Vol] 8 mmol/L 3 - 13 mmol/L [facility] Calcium [Mass/Vol] 8.7 mg/dL 8.4 - 10. 4 mg/dL [facility] Chloride [Moles/Vol] 108 mmol/L High 98 - 10 7 mmol/L [facility] CO2 [Moles/Vol] 22 mmol/L 22 - 30 mmol/L [facility] Creatinine [Mass/Vol] 0.67 mg/dL 0.52 - 1.25 mg/dL [facility] EGFR IF NonAfrican Nigerian >90.0 >60 mL/min [facility] Comment on above: KDIGO guidelines pro vide the following GFR categories: Stage GFR(ml/min/1.73 m2) Terms G1 >=90 Normal or high G2 60-89 Mildly decreased* G3a 45-59 Mildly to moderately decreased G3b 30-44 Moderately to severely decreased G4 15-29 Severely decreased G5 <15 Kidney failure *Relative to young adult level. In the absence of evidence of kidney damage, neither GFR category G1 nor G2 fulfill the criteria for CKD. The CKD-EPI equation is validated in individuals 18 years of age and older. Currently the best equation for estimating glomerular filtration rate (GFR) from serum creatinine in children is the Bedside Kenny equation. It is less accurate in patients with extremes of muscle mass, restriction of dietary protein, ingestion of creatine, extra-renal metabolism of creatinine, or treatment with medications that affect renal tubular creatinine secretion. GFR/1.73 sq M.predicted among blacks MDRD (S/P/Bld) [Vol rate/Area] mL/min/{1.73_m2} >60 mL/min [facility] Glucose [Mass/Vol] 101 mg/dL High 70 - 100 mg/dL [facility] Interpretation and review of laboratory results Abnormal [facility] Potassium [Moles/Vol] 3.7 mmol/L 3.5 - 5.1 mmol/L [facility] Sodium [Moles/Vol] 137 mmol/L 135 - 145 mmol/L [facility] Urea nitrogen (BldV) [Mass/Vol] 11 mg/dL 7 - 17 mg/dL [facility] Test Performed by [id number] [place] [address] LAB [facility] CBC Auto Differentialon 02-01 Absolute Baso # 0.1 10*3/uL 0.0 - 0.2 10*3/uL [facility] Absolute Neut # 5.3 10*3/uL 1.8 - 7.0 10*3/uL [facility] Basophils/100 WBC (Bld) 0.7 % 0.0 - 2.0 % [facility] Eosinophils (Bld) [#/Vol] 0.4 10*3/uL 0.0 - 0.5 10*3/uL [facility] Eosinophils/100 WBC (Bld) 4.1 % 1.0 - 6.0 % [facility] Granulocytes/100 WBC (Bld) 50.5 % 40.0 - 80.0 % [facility] Hematocrit (Bld) [Volume fraction] 42.6 % 40.0 - 52.0 % [facility] Hemoglobin.gastrointes tinal spec 1 Ql (Stl) 14.5 g/dL 13.0 - 18.0 g/dL [facility] Interpretation and review of laboratory results Abnormal [facility] Lymphocytes (Bld) [#/Vol] 3.6 10*3/uL 1.0 - 4.3 10*3/uL [facility] Lymphocytes/100 WBC (Bld) 34.1 % 20.0 - 40.0 % [facility] MCH (RBC) [Entitic mass] 31.0 pg 26.0 - 34.0 pg [facility] MCHC (RBC) [Mass/Vol] 34.0 % 32.0 - 36.0 % [facility] MCV (RBC) [Entitic vol] 91.3 fL 80.0 - 98.0 fL [facility] Monocytes (Bld) [#/Vol] 1.1 10*3/uL High 0.0 - 0.8 10*3/uL [facility] Monocytes/100 WBC (Bld) 10.6 % High 2.0 - 10.0 % [facility] Platelet distribution width (Bld) [Ratio] 13.4 % 11.5 - 14.5 % [facility] Platelet mean volume (Bld) [Entitic vol] 8.2 fL 7.4 - 10.4 fL [facility] Platelets (Bld) [#/Vol] 283 10*3/uL 140 - 440 10*3/uL [facility] RBC (Bld) [#/Vol] 4.66 10*6/uL 4.40 - 5.9 0 10*6/uL [facility] WBC (Bld) [#/Vol] 10.6 10*3/uL 3.6 - 10.7 10*3/uL [facility] Test Performed by [address] [address] [facility] COVID-19on 02-12-2021 SARS-CoV-2 (COVID-19) RNA TAMIKO+probe Ql (Unsp spec) Not detected Not Detected [facility] Comment on above: Not Detected. Expected result: Not Detected _ Method: Real-time, RT-PCR Negative results do not preclude SARS-CoV-2 infection and should not be used as the sole basis for treatment or other patient management decisions. This assay was developed by [employer] and distributed under an Emergency Use Authorization (EUA) granted by the FDA for the qualitative detection of SARS-CoV-2 nucleic acid. Provider and patient fact sheets can be found at https://www.fda.gov/media/005239/download and https://www.fda.gov/media/043456/download. Test Performed by [address] [address] modified by KERRY at 15:39 on 02/12/21 previous comment was: Not Detected. [facility] Hemogram w/ Autodiffon 02-12 Abs Baso Cnt 0.1 10*3/uL Normal 0.0-0.2 [facility] Comment on above: Performed By: #### H ABUNDIO LOVELL1C #### [facility] [address] [place] [address] Abs Neutrophile Cnt 5.3 10*3/uL Normal 1.8-7.0 [facility] Comment on above: Performed By: #### H ABUNDIO LOVELL1C #### [address] [address] [place] [address] Basophils/100 WBC (Bld) 0.7 % Normal 0.0-2.0 [facility] Comment on above: Performed By: #### H ABUNDIO LOVELL1C #### [address] [address] [place] [address] Eosinophils (Bld) [#/Vol] 0.4 10*3/uL Normal 0.0-0.5 [facility] Comment on above: Performed By: #### ABUNDIO RAPHAEL1C #### [address] [address] [place] [address] Eosinophils/100 WBC (Bld) 4.1 % Normal 1.0-6.0 [facility] Comment on above: Performed By: #### H ABUNDIO LOVELL1C #### [address] [address] [place] [address] Erythrocyte distribution width (RBC) [Ratio] 13.4 % Normal 11.5-14.5 [facility] Comment on above: Performed By: #### Derrek LOVELL HA1C #### [address] [address] [place] [address] Granulocytes/100 WBC (Bld) 50.5 % Normal 40.0-80.0 [facility] Comment on above: Performed By: #### H LILIYA HA1C2 #### [address] [address] [place] [address] Hematocrit (Bld) [Volume fraction] 42.6 % Normal 40.0-52.0 [facility] Comment on above: Performed By: #### H LILIYA HA1C2 #### [facility] [address] [place], [place] Hemoglobin (Bld) [Mass/Vol] 14.5 g/dL Normal 13.0-18.0 [facility] Comment on above: Performed By: #### H LILIYA HA1C2 #### [facility] [address] [place], [place] Lymphocytes (Bld) [#/Vol] 3.6 10*3/uL Normal 1.0-4.3 [facility] Comment on above: Performed By: #### H LILIYA HA1C2 #### [address] [address] [address] [place], [place] Lymphocytes/100 WBC (Bld) 34.1 % Normal 20.0-40.0 [facility] Comment on above: Performed By: #### H LILIYA HA1C2 #### [address] [address] [address] [place], [place] MCH (RBC) [Entitic mass] 31.0 pg Normal 26.0-34.0 [facility] Comment on above: Performed By: #### H LILIYA HA1C2 #### [address] [address] [address] [place], [place] MCHC 34.0 % Normal 32.0-36.0 [facility] Comment on above: Performed By: #### H LILIYA HA1C2 #### [address] [address] [address] [place], [place] MCV (RBC) [Entitic vol] 91.3 fL Normal 80.0-98.0 [facility] Comment on above: Performed By: #### H LILIYA HA1C2 #### [address] [address] [address] [place], [place] Monocytes (Bld) [#/Vol] 1.1 10*3/uL High 0.0-0.8 [facility] Comment on above: Performed By: #### H EMODinh, HA1C2 #### [address] [address] [address] [place], [place] Monocytes/100 WBC (Bld) 10.6 % High 2.0-10.0 [facility] Comment on above: Performed By: #### STEPHANIE RAPHAEL2 #### [address] [address] [address] [place], [place] Platelet mean volume (Bld) [Entitic vol] 8.2 fL Normal 7.4-10.4 [facility] Comment on above: Performed By: #### STEPHANIE RAPHAEL2 #### [address] [address] [address] [place], [place] Platelets (Bld) [#/Vol] 283 10*3/uL Normal 140-440 [facility] Comment on above: Performed By: #### STEPHANIE RAPHAEL2 #### [address] [address] [place], [place] RBC (Bld) [#/Vol] 4.66 10*6/uL Normal 4.40-5.90 [facility] Comment on above: Performed By: #### STEPHANIE RAPHAEL2 #### [address] [address] [address] [place], [place] WBC (Bld) [#/Vol] 10.6 10*3/uL Normal 3.6-10.7 [facility] Comment on above: Performed By: #### STEPHANIE RAPHAEL2 #### [address] [address] [address] [place], [place] MRI BRAIN W WO CONTRASTon [id number] ACCESSION EXAM DATE/TIME PROCEDURE ORDERING PROVIDER [id number] 02/11/2021 17:27 EST MRI Brain w/ + w/o SARAH GREENE REBECCA K. Contrast CPT code 92446 Reason For Exam (MRI Brain w/ + w/o Contrast) ABNORMAL CTH Report EXAMINATION: MRI BRAIN WITH AND WITHOUT CONTRAST CLINICAL INDICATION: Follow-up abnormal head CT. Right-sided weakness. TECHNIQUE: Multi-planar multi-sequential MR imaging of the brain was performed before and after the intravenous administration of contrast. Nine ml of Gadavist was administered (the balance of single use vial(s) has/have been discarded). COMPARISON: Head CT 02/09/2021. 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 Linear blooming artifact in the left ambient/perimesenceph alic cistern (series 10 image 10), No mass effect or hemorrhagic conversion. There is moderate microangiopathic disease. No abnormal intracranial enhancement is identified. No hydrocephalus. No extra-axial fluid collections. The skull base flow voids are present. The visualized intraorbital contents are normal. Mild mucosal thickening of the paranasal sinuses. The mastoid air cells are clear. The visualized osseous structures, soft tissues and partially visualized parotid glands appear normal. IMPRESSION: Acute infarct in the left [employer] territory involving the left parahippocampal gyrus and left thalamus. No hemorrhagic conversion or mass effect. Linear susceptibility artifact in the left ambient/perimesenceph alic cistern, for which calcified thrombus within the left P2 segment cannot be excluded. Evaluation of the P2 segment on CTA is limited secondary to bolus timing. Moderate microangiopathic disease. Magnetic Resonance Imaging Report Report Dictated on --- Final --- Dictated: 02/12/2021 3:47 pm Dictating Physician: MD MARIBEL, LEODAN ORLNADO Signed Date and Time: 02/12/2021 4:02 pm Signed by: MD GONZALEZ WASSIM OSAMA Transcribed Date and Time: 02/12/2021 3:47 [facility] Leodan Gonzalez MD - 02/12/2021 [id number] Imaging ACCESSION EXAM DATE/TIME PROCEDURE ORDERING PROVIDER [id number] 02/11/2021 17:27 EST MRI Brain w/ + w/o SARAH GREENE, HARRIS Grimaldo Contrast CPT code 55555 Reason For Exam (MRI Brain w/ + w/o Contrast) ABNORMAL CTH Report EXAMINATION: MRI BRAIN WITH AND WITHOUT CONTRAST CLINICAL INDICATION: Follow-up abnormal head CT. Right-sided weakness. TECHNIQUE: Multi-planar multi-sequential MR imaging of the brain was performed before and after the intravenous administration of contrast. Nine ml of Gadavist was administered (the balance of single use vial(s) has/have been discarded). COMPARISON: Head CT 02/09/2021. 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 Linear blooming artifact in the left ambient/perimesenceph alic cistern (series 10 image 10), No mass effect or hemorrhagic conversion. There is moderate microangiopathic disease. No abnormal intracranial enhancement is identified. No hydrocephalus. No extra-axial fluid collections. The skull base flow voids are present. The visualized intraorbital contents are normal. Mild mucosal thickening of the paranasal sinuses. The mastoid air cells are clear. The visualized osseous structures, soft tissues and partially visualized parotid glands appear normal. IMPRESSION: Acute infarct in the left [employer] territory involving the left parahippocampal gyrus and left thalamus. No hemorrhagic conversion or mass effect. Linear susceptibility artifact in the left ambient/perimesenceph alic cistern, for which calcified thrombus within the left P2 segment cannot be excluded. Evaluation of the P2 segment on CTA is limited secondary to bolus timing. Moderate microangiopathic disease. Magnetic Resonance Imaging Report Report Dictated on --- Final --- Dictated: 02/12/2021 3:47 pm Dictating Physician: MD MARIBEL, LEODAN ORLANDO Signed Date and Time: 02/12/2021 4:02 pm Signed by: MD MARIBEL, LEODAN ORLANDO Transcribed Date and Time: 02/12/2021 3:47 [facility] Work Phone: MRI BRAIN W WO CONTRASTOrder ed By: Leodan Gonzalez on 02-12-2021 [facility] Work Phone: [id number] 02-12-2021 SARS-CoV-2 (COVID-19) RNA TAMIKO+probe Ql (Unsp spec) SARS-CoV-2 --> Status: F Not Detected. Expected result: Not Detected _ Method: Real-time, RT-PCR Negative results do not preclude SARS-CoV-2 infection and should not be used as the sole basis for treatment or other patient management decisions. This assay was developed by [employer] and distributed under an Emergency Use Authorization (EUA) granted by the FDA for the qualitative detection of SARS-CoV-2 nucleic acid. Provider and patient fact sheets can be found at https://www.[facility].gov/ edia/950467/download and https://www.[facility].gov/ edia/144185/download. Expected result: Not Detected _ Method: Real-time, RT-PCR Negative results do not preclude SARS-CoV-2 infection and should not be used as the sole basis for treatment or other patient management decisions. This assay was developed by [employer] and distributed under an Emergency Use Authorization (EUA) granted by the FDA for the qualitative detection of SARS-CoV-2 nucleic acid. Provider and patient fact sheets can be found at https://www.[facility].gov/ edia/462409/download and https://www.[facility].gov/ edia/892359/download. modified by KERRY at 15:39 on 02/12/21 previous comment was: Not Detected. Normal [facility] Comment on above: Performed By: #### H ABUNDIO LOVELL1C2 #### [facility] [address] [place], [place] Basic Metabolic Panelon 11- Calcium [Mass/Vol] 8.6 mg/dL Normal 8.4-10.4 [facility] Comment on above: Performed By: #### ABUNDIO RAPHAEL1C2 #### [address] [address] [address] [place], [place] Glucose [Mass/Vol] 97 mg/dL Normal 70-100 [facility] Comment on above: Performed By: #### ABUNDIO RAPHAEL1C2 #### [address] [address] [place], [place] Urea nitrogen [Mass/Vol] 13 mg/dL Normal 7-17 [facility] Comment on above: Performed By: #### ABUNDIO RAPHAEL1C2 #### [address] [address] [place], [place] Anion gap [Moles/Vol] 7 mmol/L Normal 3-13 [facility] Comment on above: Performed By: #### Derrek LOVELL HA1C2 #### [address] [place] [address] CO2 [Moles/Vol] 22 mmol/L Normal 22-30 [facility] Comment on above: Performed By: #### H STEPHANIE LOVELL #### [facility] [address] [place], [place] Creatinine [Mass/Vol] 0.60 mg/dL Normal 0.52-1.25 [facility] Comment on above: Performed By: #### H STEPHANIE LOVELL2 #### [facility] [address] [place], [place] eGFR OTHER > 90.0 Normal >60 [facility] Comment on above: Result Comment: KDIG O guidelines provide the following GFR categories: Stage GFR(ml/min/1.73 m2) Terms G1 >=90 Normal or high G2 60-89 Mildly decreased* G3a 45-59 Mildly to moderately decreased G3b 30-44 Moderately to severely decreased G4 15-29 Severely decreased G5 <15 Kidney failure *Relative to young adult level. In the absence of evidence of kidney damage, neither GFR category G1 nor G2 fulfill the criteria for CKD. The CKD-EPI equation is validated in individuals 18 years of age and older. Currently the best equation for estimating glomerular filtration rate (GFR) from serum creatinine in children is the Bedside Kenny equation. It is less accurate in patients with extremes of muscle mass, restriction of dietary protein, ingestion of creatine, extra-renal metabolism of creatinine, or treatment with medications that affect renal tubular creatinine secretion. Performed By: #### H STEPHANIE LOVELL #### [facility] [address] [place], [place] GFR/1.73 sq M.predicted among blacks MDRD (S/P/Bld) [Vol rate/Area] mL/min/{1.73_m2} Normal >60 [facility] Comment on above: Performed By: #### H STEPHANIE LOVELL #### [address] Potassium [Moles/Vol] 3.8 mmol/L Normal 3.5-5.1 [facility] Comment on above: Performed By: #### H STEPHANIE LOVELL2 #### [address] Chloride [Moles/Vol] 108 mmol/L High 98-107 [facility] Comment on above: Performed By: #### H STEPHANIE LOVELL2 #### [facility] [address] [place], [place] Sodium [Moles/Vol] 137 mmol/L Normal 135-145 [facility] Comment on above: Performed By: #### H ABUNDIO LOVELL1C2 #### [facility] [address] [place], [place] Anion gap [Moles/Vol] 7 mmol/L 3 - 13 mmol/L [facility] Calcium [Mass/Vol] 8.6 mg/dL 8.4 - 10. 4 mg/dL [facility] Chloride [Moles/Vol] 108 mmol/L High 98 - 10 7 mmol/L [facility] CO2 [Moles/Vol] 22 mmol/L 22 - 30 mmol/L [facility] Creatinine [Mass/Vol] 0.6 mg/dL 0.52 - 1.25 mg/dL [facility] EGFR IF NonAfrican Nigerian >90.0 >60 mL/min [facility] Comment on above: KDIGO guidelines pro vide the following GFR categories: Stage GFR(ml/min/1.73 m2) Terms G1 >=90 Normal or high G2 60-89 Mildly decreased* G3a 45-59 Mildly to moderately decreased G3b 30-44 Moderately to severely decreased G4 15-29 Severely decreased G5 <15 Kidney failure *Relative to young adult level. In the absence of evidence of kidney damage, neither GFR category G1 nor G2 fulfill the criteria for CKD. The CKD-EPI equation is validated in individuals 18 years of age and older. Currently the best equation for estimating glomerular filtration rate (GFR) from serum creatinine in children is the Bedside Kenny equation. It is less accurate in patients with extremes of muscle mass, restriction of dietary protein, ingestion of creatine, extra-renal metabolism of creatinine, or treatment with medications that affect renal tubular creatinine secretion. GFR/1.73 sq M.predicted among blacks MDRD (S/P/Bld) [Vol rate/Area] mL/min/{1.73_m2} >60 mL/min [facility] Glucose [Mass/Vol] 97 mg/dL 70 - 100 mg/dL [facility] Interpretation and review of laboratory results Abnormal [facility] Potassium [Moles/Vol] 3.8 mmol/L 3.5 - 5.1 mmol/L [facility] Sodium [Moles/Vol] 137 mmol/L 135 - 145 mmol/L [facility] Urea nitrogen (BldV) [Mass/Vol] 13 mg/dL 7 - 17 mg/dL [facility] Test Performed by [facility], [address] [place] [id number] [facility] CBC Auto Differentialon 02-01 Absolute Baso # 0.1 10*3/uL 0.0 - 0.2 10*3/uL [facility] Absolute Neut # 5.6 10*3/uL 1.8 - 7.0 10*3/uL [facility] Basophils/100 WBC (Bld) 0.5 % 0.0 - 2.0 % [facility] Eosinophils (Bld) [#/Vol] 0.5 10*3/uL 0.0 - 0.5 10*3/uL [facility] Eosinophils/100 WBC (Bld) 3.9 % 1.0 - 6.0 % [facility] Granulocytes/100 WBC (Bld) 48.0 % 40.0 - 80.0 % [facility] Hematocrit (Bld) [Volume fraction] 42.0 % 40.0 - 52.0 % [facility] Hemoglobin.gastrointes tinal spec 1 Ql (Stl) 14.0 g/dL 13.0 - 18.0 g/dL [facility] Interpretation and review of laboratory results Abnormal [facility] Lymphocytes (Bld) [#/Vol] 4.5 10*3/uL High 1.0 - 4.3 10*3/uL [facility] Lymphocytes/100 WBC (Bld) 38.0 % 20.0 - 40.0 % [facility] MCH (RBC) [Entitic mass] 30.8 pg 26.0 - 34.0 pg [facility] MCHC (RBC) [Mass/Vol] 33.4 % 32.0 - 36.0 % [facility] MCV (RBC) [Entitic vol] 92.3 fL 80.0 - 98.0 fL [facility] Monocytes (Bld) [#/Vol] 1.1 10*3/uL High 0.0 - 0.8 10*3/uL [facility] Monocytes/100 WBC (Bld) 9.6 % 2.0 - 10.0 % [facility] Platelet distribution width (Bld) [Ratio] 13.4 % 11.5 - 14.5 % [facility] Platelet mean volume (Bld) [Entitic vol] 8.9 fL 7.4 - 10.4 fL [facility] Platelets (Bld) [#/Vol] 283 10*3/uL 140 - 440 10*3/uL [facility] RBC (Bld) [#/Vol] 4.55 10*6/uL 4.40 - 5.9 0 10*6/uL [facility] WBC (Bld) [#/Vol] 11.8 10*3/uL High 3.6 - 10.7 10*3/uL [facility] Test Performed by [address] LAB [facility] Hemoglobin A1Con 02-11-2021 Glucose [Mass/Vol] 103 mg/dL Normal [facility] Comment on above: Performed By: #### H ABUNDIO LOVELL1C2 #### [address] HbA1c (Bld) [Mass fraction] 5.2 % Normal [facility] Comment on above: Result Comment: Norm al less than 5.7% Prediabetes 5.7% to 6.4% Diabetes 6.5% or higher --HgbA1C levels may not be accurate in patients who have renal disease, received recent blood transfusions, are anemic, or who have dyshemoglobinemia. Performed By: #### H ABUNDIO LOVELL1C2 #### [address] HbA1c (Bld) [Mass fraction] 5.2 % [facility] Comment on above: Normal less than 5.7 % Prediabetes 5.7% to 6.4% Diabetes 6.5% or higher --HgbA1C levels may not be accurate in patients who have renal disease, received recent blood transfusions, are anemic, or who have dyshemoglobinemia. Magnesium [Mass/Vol] 103 mg/dL [facility] A Test Performed by [facility], [address] [place] [id number] [facility]/ Autodiffon [facility]-11 Abs Baso Cnt 0.1 10*3/uL Normal 0.0-0.2 [facility] Comment on above: Performed By: #### H A1C2, BMP3, HEMDF #### [address] [address] [place] [address] Abs Neutrophile Cnt 5.6 10*3/uL Normal 1.8-7.0 [facility] Comment on above: Performed By: #### H A1C2, BMP3, HEMDF #### [address] [address] [place] [address] Basophils/100 WBC (Bld) 0.5 % Normal 0.0-2.0 [facility] Comment on above: Performed By: #### H A1C2, BMP3, HEMDF #### [address] [address] [place] [address] Eosinophils (Bld) [#/Vol] 0.5 10*3/uL Normal 0.0-0.5 [facility] Comment on above: Performed By: #### H A1C2, BMP3, HEMDF #### [address] [address] [place] [address] Eosinophils/100 WBC (Bld) 3.9 % Normal 1.0-6.0 [facility] Comment on above: Performed By: #### H A1C2, BMP3, HEMDF #### [address] [address] Erythrocyte distribution width (RBC) [Ratio] 13.4 % Normal 11.5-14.5 [facility] Comment on above: Performed By: #### H A1C2, BMP3, HEMDF #### [address] [address] [place] [address] Granulocytes/100 WBC (Bld) 48.0 % Normal 40.0-80.0 [facility] Comment on above: Performed By: #### H A1C2, BMP3, HEMDF #### [address] [address] [place] [address] Hematocrit (Bld) [Volume fraction] 42.0 % Normal 40.0-52.0 [facility] Comment on above: Performed By: #### H A1C2, BMP3, HEMDF #### [address] [address] [address] [place], [place] Hemoglobin (Bld) [Mass/Vol] 14.0 g/dL Normal 13.0-18.0 [facility] Comment on above: Performed By: #### H A1C2, BMP3, HEMDF #### [address] [address] [address] [place], [place] Lymphocytes (Bld) [#/Vol] 4.5 10*3/uL High 1.0-4.3 [facility] Comment on above: Performed By: #### H A1C2, BMP3, HEMDF #### [address] [address] [place], [place] Lymphocytes/100 WBC (Bld) 38.0 % Normal 20.0-40.0 [facility] Comment on above: Performed By: #### H A1C2, BMP3, HEMDF #### [address] [address] [place], [place] MCH (RBC) [Entitic mass] 30.8 pg Normal 26.0-34.0 [facility] Comment on above: Performed By: #### H A1C2, BMP3, HEMDF #### [address] [address] [place] MCHC 33.4 % Normal 32.0-36.0 [facility] Comment on above: Performed By: #### H A1C2, BMP3, HEMDF #### [address] [address] [address] [place], [place] MCV (RBC) [Entitic vol] 92.3 fL Normal 80.0-98.0 [facility] Comment on above: Performed By: #### H A1C2, BMP3, HEMDF #### [address] Monocytes (Bld) [#/Vol] 1.1 10*3/uL High 0.0-0.8 [facility] Comment on above: Performed By: #### H A1C2, BMP3, HEMDF #### [address] [address] [address] [place], [place] Monocytes/100 WBC (Bld) 9.6 % Normal 2.0-10.0 [facility] Comment on above: Performed By: #### H A1C2, BMP3, HEMDF #### [facility] [address] [place], [place] Platelet mean volume (Bld) [Entitic vol] 8.9 fL Normal 7.4-10.4 [facility] Comment on above: Performed By: #### H A1C2, BMP3, HEMDF #### [facility] [address] [place], [place] Platelets (Bld) [#/Vol] 283 10*3/uL Normal 140-440 [facility] Comment on above: Performed By: #### H A1C2, BMP3, HEMDF #### [address] [address] [address] [place], [place] RBC (Bld) [#/Vol] 4.55 10*6/uL Normal 4.40-5.90 [facility] Comment on above: Performed By: #### H A1C2, BMP3, HEMDF #### [facility] [address] [place], [place] WBC (Bld) [#/Vol] 11.8 10*3/uL High 3.6-10.7 [facility] Comment on above: Performed By: #### H A1C2, BMP3, HEMDF #### [address] [address] [address] [place], [place] MRI BRAIN W WO CONTRASTon Radiology Study observation (narrative) [facility] Work Phone: MRI Brain w/ + w/o Contrasto n 02-11-2021 MRI Brain w/ + w/o Contrast Patient Name: JOSELITO GARRETT Magnetic Resonance Imaging ACCESSION EXAM DATE/TIME PROCEDURE ORDERING PROVIDER [id number] 02/11/2021 17:27 EST MRI Brain w/ + w/o SARAH GREENE, HARRIS Grimaldo Contrast CPT code 70151 Reason For Exam (MRI Brain w/ + w/o Contrast) ABNORMAL CTH Report EXAMINATION: MRI BRAIN WITH AND WITHOUT CONTRAST CLINICAL INDICATION: Follow-up abnormal head CT. Right-sided weakness. TECHNIQUE: Multi-planar multi-sequential MR imaging of the brain was performed before and after the intravenous administration of contrast. Nine ml of Gadavist was administered (the balance of single use vial(s) has/have been discarded). COMPARISON: Head CT 02/09/2021. 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 Linear blooming artifact in the left ambient/perimesenceph alic cistern (series 10 image 10), No mass effect or hemorrhagic conversion. There is moderate microangiopathic disease. No abnormal intracranial enhancement is identified. No hydrocephalus. No extra-axial fluid collections. The skull base flow voids are present. The visualized intraorbital contents are normal. Mild mucosal thickening of the paranasal sinuses. The mastoid air cells are clear. The visualized osseous structures, soft tissues and partially visualized parotid glands appear normal. IMPRESSION: Acute infarct in the left [employer] territory involving the left parahippocampal gyrus and left thalamus. No hemorrhagic conversion or mass effect. Linear susceptibility artifact in the left ambient/perimesenceph alic cistern, for which calcified thrombus within the left P2 segment cannot be excluded. Evaluation of the P2 segment on CTA is limited secondary to bolus timing. Moderate microangiopathic disease. Magnetic Resonance Imaging Report Report Dictated on Final Dictated: 02/12/2021 3:47 pm Dictating Physician: MD MARIBEL, LEODAN ORLANDO Signed Date and Time: 02/12/2021 4:02 pm Signed by: MD GONZALEZ WASSIM OSAMA Transcribed Date and Time: 02/12/2021 3:[address] [facility] [facility] VL CAROTID BILATERALon 02-11 [facility] -------- Carotid Duplex Report Patient DO HangB: 1970 Study 02/11/2021 Name: Joselito (50yrs) Date: Age: 50 Account: [id number] Gender: M Loc: 3349 BP: Ordering Physician: Afia Nielson Data Software Engineer: Lisa Maria RVT Interpreting Physician: Tani Dominguez MD -------- Location: [facility] -------- Indications: Carotid stenosis. Stroke. -------- Conclusions 1. Normal antegrade flow involving the left vertebral artery. 2. Normal antegrade flow involving the right vertebral artery. 3. Mild carotid disease present with less than 50% stenosis involving the left internal carotid artery. 4. Study shows a 100%, occluded involving the right internal carotid artery. -------- History: Risk factors: Current tobacco use. Hypertension. Age over 50 years. -------- Study data: Complete carotid duplex study. Grayscale 2D imaging, color Doppler imaging, and spectral Doppler analysis. Location: Bedside. Procedure: A vascular evaluation was performed with the patient in the supine position. Images were obtained using a [employer] E9 vascular ultrasound machine. -------- Findings Carotid/vertebral arteries: Right common carotid: The vessel has moderate , irregular , and heterogeneous plaque. Right internal carotid: The vessel has moderate , calcified , and heterogeneous plaque. Right external carotid: The vessel has moderate , irregular , and heterogeneous plaque. Right vertebral: The arterial flow direction is antegrade. Left vertebral: The arterial flow direction is antegrade. Left common carotid: The vessel has moderate , irregular , and heterogeneous plaque. Left internal carotid: The vessel has moderate , irregular , and heterogeneous plaque. Left external carotid: The vessel has moderate , irregular , and heterogeneous plaque. -------- Arterial flow: + +----- ------+ +-- +-------- -------+ +Location +PSV(cm/sec)+EDV(cm/s ec)+Flow analysis +Comment + + +----- ------+ +-- +-------- -------+ +R CCA , prox +103 +19 + +----- + + +----- ------+ +-- +-------- -------+ +R CCA , mid +81 +13 + +----- + + +----- ------+ +-- +-------- -------+ +R CCA , distal+64 +13 + +----- + + +----- ------+ +-- +-------- -------+ +R ICA , prox +0 +0 + +No flow + + + + + +visualized. + + +----- ------+ +-- +-------- -------+ +R ICA , mid +0 +0 + +No flow + + + + + +visualized. + + +----- ------+ +-- +-------- -------+ +R ICA , distal+65 +9 + +Retr ograde flow+ + + + + +into distal + + + + + +from + + + + + +collateral? + + +----- ------+ +-- +-------- -------+ +R ECA +89 +21 + +----- + + +----- ------+ +-- +-------- -------+ +R vertebral +67 +23 +Antegrade flow+ + + +----- ------+ +-- +-------- -------+ +R subclavian +178 +13 + +----- + + +----- ------+ +-- +-------- -------+ +L CCA , prox +139 +37 + +----- + + +----- ------+ +-- +-------- -------+ +L CCA , mid +94 +32 + +----- + + +----- ------+ +-- +-------- -------+ +L CCA , distal+79 +27 + +----- + + +----- ------+ +-- +-------- -------+ +L (more content not included)... [facility] - 02/11/2021 [facility] -------- Carotid Duplex Report Patient DO HangB: 1970 Study 02/11/2021 Name: Joselito (50yrs) Date: Age: 50 Account: [id number] Gender: M Loc: 3349 BP: Ordering Physician: Afia Nielson Data Software Engineer: Lisa Maria RVT Interpreting Physician: Tani Dominguez MD -------- Location: [facility] -------- Indications: Carotid stenosis. Stroke. -------- Conclusions 1. Normal antegrade flow involving the left vertebral artery. 2. Normal antegrade flow involving the right vertebral artery. 3. Mild carotid disease present with less than 50% stenosis involving the left internal carotid artery. 4. Study shows a 100%, occluded involving the right internal carotid artery. -------- History: Risk factors: Current tobacco use. Hypertension. Age over 50 years. -------- Study data: Complete carotid duplex study. Grayscale 2D imaging, color Doppler imaging, and spectral Doppler analysis. Location: Bedside. Procedure: A vascular evaluation was performed with the patient in the supine position. Images were obtained using a [employer] E9 vascular ultrasound machine. -------- Findings Carotid/vertebral arteries: Right common carotid: The vessel has moderate , irregular , and heterogeneous plaque. Right internal carotid: The vessel has moderate , calcified , and heterogeneous plaque. Right external carotid: The vessel has moderate , irregular , and heterogeneous plaque. Right vertebral: The arterial flow direction is antegrade. Left vertebral: The arterial flow direction is antegrade. Left common carotid: The vessel has moderate , irregular , and heterogeneous plaque. Left internal carotid: The vessel has moderate , irregular , and heterogeneous plaque. Left external carotid: The vessel has moderate , irregular , and heterogeneous plaque. -------- Arterial flow: + +----- ------+ +-- +-------- -------+ +Location +PSV(cm/sec)+EDV(cm/s ec)+Flow analysis +Comment + + +----- ------+ +-- +-------- -------+ +R CCA , prox +103 +19 + +----- + + +----- ------+ +-- +-------- -------+ +R CCA , mid +81 +13 + +----- + + +----- ------+ +-- +-------- -------+ +R CCA , distal+64 +13 + +----- + + +----- ------+ +-- +-------- -------+ +R ICA , prox +0 +0 + +No flow + + + + + +visualized. + + +----- ------+ +-- +-------- -------+ +R ICA , mid +0 +0 + +No flow + + + + + +visualized. + + +----- ------+ +-- +-------- -------+ +R ICA , distal+65 +9 + +Retro grade flow+ + + + + +into distal + + + + + +from + + + + + +collateral? + + +----- ------+ +-- +-------- -------+ +R ECA +89 +21 + +----- + + +----- ------+ +-- +-------- -------+ +R vertebral +67 +23 +Antegrade flow+ + + +----- ------+ +-- +-------- -------+ +R subclavian +178 +13 + +----- + + +----- ------+ +-- +-------- -------+ +L CCA , prox +139 +37 + +----- + + +----- ------+ +-- +-------- -------+ +L CCA , mid +94 +32 + +----- + + +----- ------+ +-- +-------- -------+ +L CCA , distal+79 +27 + +----- + + +----- ------+ +-- +-------- -------+ +L ICA , prox +94 +34 + +----- + + +----- ------+ +-- +-------- -------+ +L ICA , mid +114 +44 + +----- + + +----- ------+ +-- +-------- -------+ +L ICA , distal+124 +43 + +----- + + +----- ------+ +-- +-------- -------+ +L ECA +124 +29 + +----- + + +----- ------+ +-- +-------- -------+ +L vert (more content not included)... [facility] Work Phone: CAROTID BILATERALOrdered By: Tani Dominguez on 02-11-2021 [facility] Work Phone: Carotid Duplex Ultrasound Completeon 02-11-2021 Carotid Duplex Ultrasound Complete Patient Name: JOSEILTO GARRETT Ultrasound ACCESSION EXAM DATE/TIME PROCEDURE ORDERING PROVIDER [id number] 02/11/2021 11:49 EST Carotid Duplex [id number] AFIA SEGOVIA Ultrasound Complete CPT code 83779 Reason For Exam ( Carotid Duplex Ultrasound Complete) carotid stenosis Report [facility] -------- Carotid Duplex Report Patient SHIV Garrett: 1970 Study 02/11/2021 Name: Joselito (50yrs) Date: Age: 50 Account: [id number] Gender: M Loc: 3349 BP: Ordering Physician: Afia Nielson Data Software Engineer: Lisa Maria RVT Interpreting Physician: Tani Dominguez MD -------- Location: [facility] -------- Indications: Carotid stenosis. Stroke. -------- Conclusions 1. Normal antegrade flow involving the left vertebral artery. 2. Normal antegrade flow involving the right vertebral artery. 3. Mild carotid disease present with less than 50% stenosis involving the left internal carotid artery. 4. Study shows a 100%, occluded involving the right internal carotid artery. -------- History: Risk factors: Current tobacco use. Hypertension. Age over 50 years. -------- Study data: Complete carotid duplex study. Grayscale 2D imaging, color Doppler imaging, and spectral Doppler analysis. Location: Bedside. Procedure: A vascular evaluation was performed with the patient in the supine position. Images were obtained using a [employer] E9 vascular ultrasound machine. Ultrasound Report -------- Findings Carotid/vertebral arteries: Right common carotid: The vessel has moderate , irregular , and heterogeneous plaque. Right internal carotid: The vessel has moderate , calcified , and heterogeneous plaque. Right external carotid: The vessel has moderate , irregular , and heterogeneous plaque. Right vertebral: The arterial flow direction is antegrade. Left vertebral: The arterial flow direction is antegrade. Left common carotid: The vessel has moderate , irregular , and heterogeneous plaque. Left internal carotid: The vessel has moderate , irregular , and heterogeneous plaque. Left external carotid: The vessel has moderate , irregular , and heterogeneous plaque. -------- Arterial flow: + +----- ------+ +-- +-------- -------+ +Location +PSV(cm/sec)+EDV(cm/s ec)+Flow analysis +Comment + + +----- ------+ +-- +-------- -------+ +R CCA , prox +103 +19 + +----- + + +----- ------+ +-- +-------- -------+ +R CCA , mid +81 +13 + +----- + + +----- ------+ +-- +-------- -------+ +R CCA , distal+64 +13 + +----- + + +----- ------+ +-- +-------- -------+ +R ICA , prox +0 +0 + +No flow + + + + + +visualized. + + +----- ------+ +-- +-------- -------+ +R ICA , mid +0 +0 + +No flow + + + + + +visualized. + + +----- ------+ +-- +-------- -------+ +R ICA , distal+65 +9 + +Retro grade flow+ + + + + +into distal + + + + + +from + + + + + +collateral? + + +----- ------+ +-- +-------- -------+ +R ECA +89 +21 + +----- + + +----- ------+ +-- +-------- -------+ +R vertebral +67 +23 +Antegrade flow+ + + +----- ------+ +-- +-------- -------+ +R subclavian +178 +13 + +----- + + +----- ------+ +-- +-------- -------+ +L CCA , prox +139 +37 + +----- + + +----- ------+ +-- +-------- -------+ +L CCA , mid +94 +32 + +----- + + +----- ------+ +-- +-------- -------+ +L CCA , distal+79 +27 + +----- + + +----- ------+ +-- +-------- -------+ +L ICA , prox +94 +34 + +----- + + +----- ------+ +-- +-------- -------+ +L ICA , mid +114 +44 + +----- + + +----- ------+ +-- +-------- -------+ +L ICA , distal+124 + (more content not included)... Normal [facility] CBCon 02-10-2021 Hematocrit (Bld) [Volume fraction] 43.7 % 40.0 - 52.0 % [facility] Hemoglobin.gastrointes tinal spec 1 Ql (Stl) 14.6 g/dL 13.0 - 18.0 g/dL [facility] MCH (RBC) [Entitic mass] 30.9 pg 26.0 - 34.0 pg [facility] MCHC (RBC) [Mass/Vol] 33.5 % 32.0 - 36.0 % [facility] MCV (RBC) [Entitic vol] 92.3 fL 80.0 - 98.0 fL [facility] Platelet distribution width (Bld) [Ratio] 13.5 % 11.5 - 14.5 % [facility] Platelet mean volume (Bld) [Entitic vol] 8.8 fL 7.4 - 10.4 fL [facility] Platelets (Bld) [#/Vol] 286 10*3/uL 140 - 440 10*3/uL [facility] RBC (Bld) [#/Vol] 4.73 10*6/uL 4.40 - 5.9 0 10*6/uL [facility] WBC (Bld) [#/Vol] 10.2 10*3/uL 3.6 - 10.7 10*3/uL [facility], [address] [place] [id number] [facility] Comp Panel with Mg Reflexon 02-10-2021 ALP [Catalytic activity/Vol] 66 U/L Normal 38-126 [facility] Comment on above: Result Comment: Mode rately hemolysed, interpret with caution. Performed By: #### H ABUNDIO LOVELL1C2 #### [address] [address] ALT [Catalytic activity/Vol] 44 U/L Normal 0-49 [facility] Comment on above: Result Comment: The ALT test is performed by an updated assay method. Please note that the reference intervals have been changed and are now sex specific. Performed By: #### STEPHANIE RAPHAEL2 #### [facility] [address] [place], [place] AST [Catalytic activity/Vol] 51 U/L High 15-46 [facility] Comment on above: Result Comment: Mode rately hemolysed, interpret with caution. Performed By: #### ABUNDIO RAPHAEL1C2 #### [address] [address] [address] [place], [place] Calcium [Mass/Vol] 9.2 mg/dL Normal 8.4-10.4 [facility] Comment on above: Performed By: #### ABUNDIO RAPHAEL1C2 #### [address] [address] [address] [place], [place] Glucose [Mass/Vol] 117 mg/dL High 70-100 [facility] Comment on above: Performed By: #### STEPHANIE RAPHAEL2 #### [address] [address] [address] [place], [place] Protein [Mass/Vol] 7.6 g/dL Normal 6.3-8.2 [facility] Comment on above: Result Comment: Mode rately hemolysed, interpret with caution. Performed By: #### ABUNDIO RAPHAEL1C2 #### [address] [address] [address] [place], [place] Urea nitrogen [Mass/Vol] 14 mg/dL Normal 7-17 [facility] Comment on above: Performed By: #### ABUNDIO RAPHAEL1C2 #### [address] [address] [address] [place], [place] Anion gap [Moles/Vol] 9 mmol/L Normal 3-13 [facility] Comment on above: Performed By: #### ABUNDIO RAPHAEL1C2 #### [address] [address] [address] [place], [place] CO2 [Moles/Vol] 16 mmol/L Low 22-30 [facility] Comment on above: Performed By: #### STEPHANIE RAPHAEL2 #### [address] Creatinine [Mass/Vol] 0.62 mg/dL Normal 0.52-1.25 [facility] Comment on above: Performed By: #### H STEPHANIE LOVELL2 #### [address] eGFR OTHER > 90.0 Normal >60 [facility] Comment on above: Result Comment: KDIG O guidelines provide the following GFR categories: Stage GFR(ml/min/1.73 m2) Terms G1 >=90 Normal or high G2 60-89 Mildly decreased* G3a 45-59 Mildly to moderately decreased G3b 30-44 Moderately to severely decreased G4 15-29 Severely decreased G5 <15 Kidney failure *Relative to young adult level. In the absence of evidence of kidney damage, neither GFR category G1 nor G2 fulfill the criteria for CKD. The CKD-EPI equation is validated in individuals 18 years of age and older. Currently the best equation for estimating glomerular filtration rate (GFR) from serum creatinine in children is the Bedside Kenny equation. It is less accurate in patients with extremes of muscle mass, restriction of dietary protein, ingestion of creatine, extra-renal metabolism of creatinine, or treatment with medications that affect renal tubular creatinine secretion. Performed By: #### H STEPHANIE LOVELL #### [address] GFR/1.73 sq M.predicted among blacks MDRD (S/P/Bld) [Vol rate/Area] mL/min/{1.73_m2} Normal >60 [facility] Comment on above: Performed By: #### H STEPHANIE LOVELL #### [address] Albumin [Mass/Vol] 4.7 g/dL Normal 3.5-5.0 [facility] Comment on above: Result Comment: Mode rately hemolysed, interpret with caution. Performed By: #### H STEPHANIE LOVELL #### [address] Chloride [Moles/Vol] 113 mmol/L High 98-107 [facility] Comment on above: Performed By: #### H LILIYA HA1C2 #### [facility] [address] [place], [place] Potassium [Moles/Vol] 4.9 mmol/L Normal 3.5-5.1 [facility] Comment on above: Result Comment: Mode rately hemolysed, interpret with caution. Performed By: #### H LILIYA HA1C2 #### [facility] [address] [place], [place] Sodium [Moles/Vol] 139 mmol/L Normal 135-145 [facility] Comment on above: Performed By: #### H LILIYA HA1C2 #### [facility] [address] [place], [place] Bilirubin [Mass/Vol] 1.1 mg/dL Normal 0.2-1.3 [facility] Comment on above: Result Comment: Mode rately hemolysed, interpret with caution. Performed By: #### H LILIYA HA1C2 #### [facility] [address] [place], [place] Comprehensive Metabolic Pane l w/ Reflex to MGon 02-10-2021 Albumin [Mass/Vol] 4.7 g/dL 3.5 - 5.0 g/dL [facility] Comment on above: Moderately hemolysed , interpret with caution. ALP (Bld) [Catalytic activity/Vol] 66 U/L 38 - 126 U/L [facility] Comment on above: Moderately hemolysed , interpret with caution. ALT [Catalytic activity/Vol] 44 U/L 0 - 49 U/L [facility] Comment on above: The ALT test is perf ormed by an updated assay method. Please note that the reference intervals have been changed and are now sex specific. Anion gap [Moles/Vol] 9 mmol/L 3 - 13 mmol/L [facility] AST [Catalytic activity/Vol] 51 U/L High 15 - 46 U/L [facility] Comment on above: Moderately hemolysed , interpret with caution. Bilirubin [Mass/Vol] 1.1 mg/dL 0.2 - 1 .3 mg/dL [facility] Comment on above: Moderately hemolysed , interpret with caution. Calcium [Mass/Vol] 9.2 mg/dL 8.4 - 10. 4 mg/dL [facility] Chloride [Moles/Vol] 113 mmol/L High 98 - 10 7 mmol/L [facility] CO2 [Moles/Vol] 16 mmol/L Low 22 - 30 mmol/L [facility] Creatinine [Mass/Vol] 0.62 mg/dL 0.52 - 1.25 mg/dL [facility] EGFR IF NonAfrican Nigerian >90.0 >60 mL/min [facility] Comment on above: KDIGO guidelines pro vide the following GFR categories: Stage GFR(ml/min/1.73 m2) Terms G1 >=90 Normal or high G2 60-89 Mildly decreased* G3a 45-59 Mildly to moderately decreased G3b 30-44 Moderately to severely decreased G4 15-29 Severely decreased G5 <15 Kidney failure *Relative to young adult level. In the absence of evidence of kidney damage, neither GFR category G1 nor G2 fulfill the criteria for CKD. The CKD-EPI equation is validated in individuals 18 years of age and older. Currently the best equation for estimating glomerular filtration rate (GFR) from serum creatinine in children is the Bedside Kenny equation. It is less accurate in patients with extremes of muscle mass, restriction of dietary protein, ingestion of creatine, extra-renal metabolism of creatinine, or treatment with medications that affect renal tubular creatinine secretion. Free PSA/Total PSA [Mass fraction] 7.6 g/dL 6.3 - 8.2 g/dL [facility] Comment on above: Moderately hemolysed , interpret with caution. GFR/1.73 sq M.predicted among blacks MDRD (S/P/Bld) [Vol rate/Area] mL/min/{1.73_m2} >60 mL/min [facility] Glucose [Mass/Vol] 117 mg/dL High 70 - 100 mg/dL [facility] Interpretation and review of laboratory results Abnormal [facility] Potassium [Moles/Vol] 4.9 mmol/L 3.5 - 5.1 mmol/L [facility] Comment on above: Moderately hemolysed , interpret with caution. Sodium [Moles/Vol] 139 mmol/L 135 - 145 mmol/L [facility] Urea nitrogen (BldV) [Mass/Vol] 14 mg/dL 7 - 17 mg/dL [facility] Test [facility] by [facility], [address] [place] [id number] [place] [address] LAB [facility] ECHO Complete 2D W Doppler W Coloron 02-10-2021 TRANSTHORACIC ECHOCARDIOGRAM PATIENT: Joselito Garrett STUDY DATE: 02/10/2021 : 1970 AGE: 50 HT/WT: 185.4 cm (73 88.5 kg (194.6 in) lb) GENDER: M BP: 165 / 104 LOCATION: [facility] PATIENT Inpatient main STATUS: *ORDERING PHYSICIAN: * Hayley, *FELLOW: * Jelani Anderson MD *READING PHYSICIAN: * Pavan *CIVIL TRANSPORTATION ENGINEER: * Ruchi Maria MD RDCS, AE -------- INDICATIONS: Stroke. -------- CONCLUSIONS SUMMARY: 1. Atrial septum: Color Doppler shows no shunt. There is no evidence of right to left shunting with injection of agitated saline contrast. 2. Left ventricle: Average LV global longitudinal strain is -21. The cavity size is normal. Wall thickness is normal. Systolic function is normal by visual assessment. The estimated ejection fraction is 70%. There are no regional wall motion abnormalities. 3. Right ventricle: The cavity size is normal. Systolic function is normal. Right ventricular systolic pressure is within the normal range. 4. Aortic valve: Structurally normal valve. Trileaflet. There is no stenosis. There is mild, 1+ regurgitation directed centrally in the LVOT. 5. Aorta: The aorta is moderately dilated. The aortic root diameter is 4.5 cm. The ascending aorta internal dimension in the A-P direction, maximal systolic dimension is 4.2 cm. 6. No source of embolism is identified. RECOMMENDATIONS: Annual US follow up for dilated aorta, or alternative imaging modality as clinically indicated -------- STUDY DATA: Complete transthoracic echocardiogram. Procedure: Image quality was fair. M-mode, complete 2D, strain rate, complete spectral Doppler, and color flow Doppler images were acquired and archived for permanent storage and are available for subsequent review. Study status: Routine. Patient status: Inpatient. -------- FINDINGS LEFT VENTRICLE: Average LV global longitudinal strain is -21. The cavity size is normal. Wall thickness is normal. Systolic function is normal by visual assessment. The estimated ejection fraction is 70%. There are no regional wall motion abnormalities. Left ventricular diastolic function parameters are normal. E/e' average: 7 RIGHT VENTRICLE: The cavity size is normal. Systolic function is normal. Right ventricular systolic pressure is within the normal range. VENTRICULAR SEPTUM: There is no evidence of a ventricular septal defect. LEFT ATRIUM: The atrium is normal in size. RIGHT ATRIUM: The atrium is normal in size. ATRIAL SEPTUM: Color Doppler shows no shunt. There is no evidence of right to left shunting with injection of agitated saline contrast. MITRAL VALVE: Structurally normal valve. Doppler: There is trivial, less than 1+ regurgitation. The peak diastolic gradient is 3 mm Hg. AORTIC VALVE: Structurally normal valve. Trileaflet. Doppler: There is no stenosis. There is mild, 1+ regurgitation directed centrally in the LVOT. The peak systolic gradient is 12 mm Hg. The peak systolic velocity is 1.8 m/sec. TRICUSPID VALVE: Structurally normal valve. Doppler: There is trivial, less than 1+ regurgitation. PULMONIC VALVE: Structurally normal valve. Doppler: There is trivial, less than 1+ regurgitation. AORTA: The aorta is moderately dilated. PULMONARY ARTERY: Main pulmonary artery: Normal. PERICARDIUM: There is no pericardial effusion. SYSTEMIC VEINS: Inferior vena cava: The vessel is normal. The IVC collapses by greater than 50% with inspiration. -------- Measurements Value Reference Aortic root ID (H) 4.5 cm <4.2 Aortic root ID, STJ, ED 3.4 cm 2.3 - 3.5 Aortic root ID/bsa, STJ, ED 1.6 cm/m^2 1.1 - 1.9 Value Reference Ascending aorta ID, A-P, S 4.2 cm Ascending aorta ID/bsa, A-P, S 2.0 cm/m^2 Left ventricle Value Reference GLS, 2D 20.56 % LV ID, ED (L) 4.0 cm 4.2 - 5.8 LV ID, ES (L) 2.1 cm 2.5 - 4.0 LV ID/bsa, ED (L) 1.9 cm/m^2 2.2 - 3.0 LV ID/bsa, ES (L) 1.0 cm/m^2 1.3 - 2.1 LV PW thickness, ED (H) 1.1 cm 0.6 - 1.0 LV PW/LV ID ratio, ED (more content not included)... [facility] Pavan Maria MD - 02/10/2021 TRANSTHORACIC ECHOCARDIOGRAM PATIENT: Joselito Garrett STUDY DATE: 02/10/2021 : 1970 AGE: 50 HT/WT: 185.4 cm (73 88.5 kg (194.6 in) lb) GENDER: M BP: 165 / 104 LOCATION: [facility] PATIENT Inpatient main STATUS: *ORDERING PHYSICIAN: * Hayley, *FELLOW: * Jelani Anderson MD *READING PHYSICIAN: * Pavan *CIVIL TRANSPORTATION ENGINEER: * Ruchi Maria MD [facility], AE -------- INDICATIONS: Stroke. -------- CONCLUSIONS SUMMARY: 1. Atrial septum: Color Doppler shows no shunt. There is no evidence of right to left shunting with injection of agitated saline contrast. 2. Left ventricle: Average LV global longitudinal strain is -21. The cavity size is normal. Wall thickness is normal. Systolic function is normal by visual assessment. The estimated ejection fraction is 70%. There are no regional wall motion abnormalities. 3. Right ventricle: The cavity size is normal. Systolic function is normal. Right ventricular systolic pressure is within the normal range. 4. Aortic valve: Structurally normal valve. Trileaflet. There is no stenosis. There is mild, 1+ regurgitation directed centrally in the LVOT. 5. Aorta: The aorta is moderately dilated. The aortic root diameter is 4.5 cm. The ascending aorta internal dimension in the A-P direction, maximal systolic dimension is 4.2 cm. 6. No source of embolism is identified. RECOMMENDATIONS: Annual US follow up for dilated aorta, or alternative imaging modality as clinically indicated -------- STUDY DATA: Complete transthoracic echocardiogram. Procedure: Image quality was fair. M-mode, complete 2D, strain rate, complete spectral Doppler, and color flow Doppler images were acquired and archived for permanent storage and are available for subsequent review. Study status: Routine. Patient status: Inpatient. -------- FINDINGS LEFT VENTRICLE: Average LV global longitudinal strain is -21. The cavity size is normal. Wall thickness is normal. Systolic function is normal by visual assessment. The estimated ejection fraction is 70%. There are no regional wall motion abnormalities. Left ventricular diastolic function parameters are normal. E/e' average: 7 RIGHT VENTRICLE: The cavity size is normal. Systolic function is normal. Right ventricular systolic pressure is within the normal range. VENTRICULAR SEPTUM: There is no evidence of a ventricular septal defect. LEFT ATRIUM: The atrium is normal in size. RIGHT ATRIUM: The atrium is normal in size. ATRIAL SEPTUM: Color Doppler shows no shunt. There is no evidence of right to left shunting with injection of agitated saline contrast. MITRAL VALVE: Structurally normal valve. Doppler: There is trivial, less than 1+ regurgitation. The peak diastolic gradient is 3 mm Hg. AORTIC VALVE: Structurally normal valve. Trileaflet. Doppler: There is no stenosis. There is mild, 1+ regurgitation directed centrally in the LVOT. The peak systolic gradient is 12 mm Hg. The peak systolic velocity is 1.8 m/sec. TRICUSPID VALVE: Structurally normal valve. Doppler: There is trivial, less than 1+ regurgitation. PULMONIC VALVE: Structurally normal valve. Doppler: There is trivial, less than 1+ regurgitation. AORTA: The aorta is moderately dilated. PULMONARY ARTERY: Main pulmonary artery: Normal. PERICARDIUM: There is no pericardial effusion. SYSTEMIC VEINS: Inferior vena cava: The vessel is normal. The IVC collapses by greater than 50% with inspiration. -------- Measurements Value Reference Aortic root ID (H) 4.5 cm <4.2 Aortic root ID, STJ, ED 3.4 cm 2.3 - 3.5 Aortic root ID/bsa, STJ, ED 1.6 cm/m^2 1.1 - 1.9 Value Reference Ascending aorta ID, A-P, S 4.2 cm Ascending aorta ID/bsa, A-P, S 2.0 cm/m^2 Left ventricle Value Reference GLS, 2D 20.56 % LV ID, ED (L) 4.0 cm 4.2 - 5.8 LV ID, ES (L) 2.1 cm 2.5 - 4.0 LV ID/bsa, ED (L) 1.9 cm/m^2 2.2 - 3.0 LV ID/bsa, ES (L) 1.0 cm/m^2 1.3 - 2.1 LV PW thickness, ED (H) 1.1 cm 0.6 - 1.0 LV PW/LV ID ratio, ED 0.27 LV wall mass 140 g 96 - 200 LV wall mass/bsa 66 g/m^2 50 - 102 LV ejection fraction, 2-p 70 % 52 - 72 LV E/e', lateral 7.2 LV E/e', medial 9.1 LV E/e', average 8 Ventricular septum Value Reference IVS thickness, ED (H) 1.1 cm 0.6 - 1.0 LVOT Value Reference LVOT ID, A-P 2.0 cm LVOT mean velocity, S 1 m/sec LVOT peak gradient, S 8 mm Hg ------ (more content not included)... [facility] Work Phone: ECHO Complete 2D W Doppler W ColorOrdered By: Pavan Maria on 02-10-2021 [facility] Work Phone: EKG 12 Lead if not already d one by Eliana 02-10-2021 [facility] Test Date: 2021-02-09 Pat Name: Joselito Garrett Department: [facility] Room: [id number] Gender: M Truck Service Manager: YB : 1970 Requested By: TNAI CASTRO Order Number: [id number] Reading MD: Yonas Mota Measurements Intervals [place] Rate: 84 P: 22 FL: 167 QRS: -12 QRSD: 111 T: 47 QT: 370 QTc: 438 Interpretive Statements Sinus rhythm Electronically Signed On 02-10-2021 8:40:58 EST by Yonas Mota [facility] Yonas Mota MD - 02/10/2021 [facility] Test Date: 2021-02-09 Pat Name: Joselito Garrett Department: [facility] Room: 3349 Gender: M Truck Service Manager: YB : 1970 Requested By: TANI CASTRO Order Number: [id number] Reading MD: Yonas Mota Measurements Intervals [place] Rate: 84 P: 22 FL: 167 QRS: -12 QRSD: 111 T: 47 QT: 370 QTc: 438 Interpretive Statements Sinus rhythm Electronically Signed On 02-10-2021 8:40:58 EST by Yonas Mota [facility] Work Phone: EKG 12 Lead if not already d one by SquadOrdered By: Yonas Mota on 02-10-2021 [facility] Work Phone: Echo Complete w/wo Contrasto n 02-10-2021 Echo Complete w/wo Contrast Patient Name: JOSELITO GARRETT Ultrasound ACCESSION EXAM DATE/TIME PROCEDURE ORDERING PROVIDER [id number] 02/10/2021 15:47 EST Echo Complete w/wo SARAH GREENE, HARRIS Grimaldo Contrast Reason For Exam (Echo Complete w/wo Contrast) stroke Report TRANSTHORACIC ECHOCARDIOGRAM PATIENT: Joselito Garrett STUDY DATE: 02/10/2021 : 1970 AGE: 50 HT/WT: 185.4 cm (73 88.5 kg (194.6 in) lb) GENDER: M BP: 165 / 104 LOCATION: [facility] PATIENT Inpatient main STATUS: *ORDERING PHYSICIAN: * Hayley, *FELLOW: * Jelani Anderson MD *READING PHYSICIAN: * Pavan *CIVIL TRANSPORTATION ENGINEER: * Ruchi Maria MD [facility], AE -------- INDICATIONS: Stroke. -------- CONCLUSIONS SUMMARY: 1. Atrial septum: Color Doppler shows no shunt. There is no evidence of right to left shunting with injection of agitated saline contrast. 2. Left ventricle: Average LV global longitudinal strain is -21. The cavity size is normal. Wall thickness is normal. Systolic function is normal by visual assessment. The estimated ejection fraction is 70%. There are no regional wall motion abnormalities. 3. Right ventricle: The cavity size is normal. Systolic function is normal. Right ventricular systolic pressure is within the normal range. 4. Aortic valve: Structurally normal valve. Trileaflet. There is no stenosis. There is mild, 1+ regurgitation directed centrally in the LVOT. 5. Aorta: The aorta is moderately dilated. The aortic root diameter is 4.5 cm. The ascending aorta internal dimension in the A-P direction, maximal systolic dimension is 4.2 cm. 6. No source of embolism is identified. RECOMMENDATIONS: Annual US follow up for dilated aorta, or alternative imaging modality as clinically indicated -------- STUDY DATA: Complete transthoracic echocardiogram. Procedure: Image quality was fair. M-mode, complete 2D, strain rate, complete spectral Doppler, and color flow Doppler images were acquired and archived for Ultrasound Report permanent storage and are available for subsequent review. Study status: Routine. Patient status: Inpatient. -------- FINDINGS LEFT VENTRICLE: Average LV global longitudinal strain is -21. The cavity size is normal. Wall thickness is normal. Systolic function is normal by visual assessment. The estimated ejection fraction is 70%. There are no regional wall motion abnormalities. Left ventricular diastolic function parameters are normal. E/e' average: 7 RIGHT VENTRICLE: The cavity size is normal. Systolic function is normal. Right ventricular systolic pressure is within the normal range. VENTRICULAR SEPTUM: There is no evidence of a ventricular septal defect. LEFT ATRIUM: The atrium is normal in size. RIGHT ATRIUM: The atrium is normal in size. ATRIAL SEPTUM: Color Doppler shows no shunt. There is no evidence of right to left shunting with injection of agitated saline contrast. MITRAL VALVE: Structurally normal valve. Doppler: There is trivial, less than 1+ regurgitation. The peak diastolic gradient is 3 mm Hg. AORTIC VALVE: Structurally normal valve. Trileaflet. Doppler: There is no stenosis. There is mild, 1+ regurgitation directed centrally in the LVOT. The peak systolic gradient is 12 mm Hg. The peak systolic velocity is 1.8 m/sec. TRICUSPID VALVE: Structurally normal valve. Doppler: There is trivial, less than 1+ regurgitation. PULMONIC VALVE: Structurally normal valve. Doppler: There is trivial, less than 1+ regurgitation. AORTA: The aorta is moderately dilated. PULMONARY ARTERY: Main pulmonary artery: Normal. PERICARDIUM: There is no pericardial effusion. SYSTEMIC VEINS: Inferior vena cava: The vessel is normal. The IVC collapses by greater than 50% with inspiration. -------- Measurements Value Reference Aortic root ID (H) 4.5 cm <4.2 Aortic root ID, STJ, ED 3.4 cm 2.3 - 3.5 Aortic root ID/bsa, STJ, ED 1.6 cm/m^2 1.1 - 1.9 Value Reference Ascending aorta ID, A-P, S 4.2 cm Ascending aorta ID/bsa, A-P, S 2.0 cm/m^2 Left ventricle Value Reference GLS, 2D 20.56 % LV ID, ED (L) 4.0 cm 4.2 - 5.8 LV ID, ES (L) 2.1 cm 2.5 - 4.0 LV ID/bsa, ED (L) 1.9 cm/m^2 2.2 - 3.0 LV ID/bsa, ES (L) 1.0 cm/m^2 1.3 - 2.1 LV PW thickness, ED (H) 1.1 cm 0.6 - 1.0 LV PW/LV ID ratio, ED 0.27 LV wall mass 140 g 96 - 200 LV wall mass/bsa 66 g/m^2 50 - 102 LV ejection fraction, 2-p 70 % 52 - 72 LV E/e', lateral 7.2 LV E/e', medial 9.1 Ultrasound Report LV E/e', average (more content not included)... Normal [facility] HEMOGLOBIN A1Con 02-10-2021 HbA1c (Bld) [Mass fraction] 5.2 % [facility] Comment on above: Normal less than 5.7 % Prediabetes 5.7% to 6.4% Diabetes 6.5% or higher --HgbA1C levels may not be accurate in patients who have renal disease, received recent blood transfusions, are anemic, or who have dyshemoglobinemia. Magnesium [Mass/Vol] 103 mg/dL [facility] Test Performed by [facility], [address] [place] [id number] [facility] LAB [facility] Hemoglobin A1Con 02-10-2021 Glucose [Mass/Vol] 103 mg/dL Normal [facility] Comment on above: Performed By: #### Derrek LOVELL HA1C2 #### [place] [address] [place], [place] HbA1c (Bld) [Mass fraction] 5.2 % Normal [facility] Comment on above: Result Comment: Norm al less than 5.7% Prediabetes 5.7% to 6.4% Diabetes 6.5% or higher --HgbA1C levels may not be accurate in patients who have renal disease, received recent blood transfusions, are anemic, or who have dyshemoglobinemia. Performed By: #### Derrek LOVELL HA1C2 #### [place] [address] [address] [place], [place] Hemogramon 02-10-2021 Erythrocyte distribution width (RBC) [Ratio] 13.5 % Normal 11.5-14.5 [facility] Comment on above: Performed By: #### Derrek LOVELL HA1C2 #### [place] [address] [place], [place] Hematocrit (Bld) [Volume fraction] 43.7 % Normal 40.0-52.0 [facility] Comment on above: Performed By: #### Derrek LOVELL HA1C2 #### [place] [address] [place], [place] Hemoglobin (Bld) [Mass/Vol] 14.6 g/dL Normal 13.0-18.0 [facility] Comment on above: Performed By: #### Derrek LOVELL HA1C2 #### [place] [address] [place], [place] MCH (RBC) [Entitic mass] 30.9 pg Normal 26.0-34.0 [facility] Comment on above: Performed By: #### Derrek LOVELL HA1C2 #### [place] [address] [place], [place] MCHC 33.5 % Normal 32.0-36.0 [facility] Comment on above: Performed By: #### Derrek LOVELL HA1C2 #### [place] [address] [place], [place] MCV (RBC) [Entitic vol] 92.3 fL Normal 80.0-98.0 [facility] Comment on above: Performed By: #### STEPHANIE RAPHAEL #### [place] [address] [place], [place] Platelet mean volume (Bld) [Entitic vol] 8.8 fL Normal 7.4-10.4 [facility] Comment on above: Performed By: #### STEPHANIE RAPHAEL2 #### [place] [address] [place], [place] Platelets (Bld) [#/Vol] 286 10*3/uL Normal 140-440 [facility] Comment on above: Performed By: #### STEPHANIE RAPHAEL2 #### [place] [address] [place], [place] RBC (Bld) [#/Vol] 4.73 10*6/uL Normal 4.40-5.90 [facility] Comment on above: Performed By: #### STEPHANIE RAPHAEL2 #### [place] [address] [place], [place] WBC (Bld) [#/Vol] 10.2 10*3/uL Normal 3.6-10.7 [facility] Comment on above: Performed By: #### STEPHANIE RAPHAEL #### [place] [address] [address] [place], [place] Lipid Panelon 02-10-2021 Chol/HDL 6 Normal [facility] Comment on above: Result Comment: Ref Range: < 3 Low Risk for CHD 3-6 Mod Risk for CHD > 6 High Risk for CHD Performed By: #### STEPHANIE RAPHAEL2 #### [place] [address] [place], [place] Cholesterol in HDL [Mass/Vol] 38 mg/dL Low 40-60 [facility] Comment on above: Performed By: #### ABUNDIO RAPHAEL1C2 #### [place] [address] [place], [place] Low Density Lipoprotein 165 mg/dL Abnormal <100 [facility] Comment on above: Performed By: #### STEPHANIE RAPHAEL2 #### [facility] [address] [place] [address] Triglyceride [Mass/Vol] 160 mg/dL Abnormal <150 [facility] Comment on above: Performed By: #### H STEPHANIE LOVELL2 #### [facility] [address] [place] [address] Cholesterol [Mass/Vol] 235 mg/dL Abnormal < 200 [facility] Comment on above: Performed By: #### H STEPHANIE LOVELL2 #### [address] Lipid panel - fastingon 02-01 Cholesterol [Mass/Vol] 235 mg/dL Abnormal <200 [facility] Cholesterol in HDL [Mass/Vol] 38 mg/dL Low 40 - 60 mg/dL [facility] Cholesterol in LDL [Mass/Vol] 165 mg/dL Abnormal <100 [facility] Cholesterol.total/Chol esterol in HDL [Mass ratio] 6 {ratio} [facility] Comment on above: Ref Range: < 3 Low Risk for CHD 3-6 Mod Risk for CHD > 6 High Risk for CHD Interpretation and review of laboratory results Abnormal [facility] Triglyceride [Mass/Vol] 160 mg/dL Abnormal <150 [facility] No Panel Informationon 02-10 Test Performed by [address] LAB [facility] Troponinon 02-10-2021 Troponin I.cardiac [Mass/Vol] ng/mL 0.000 - 0.034 ng/mL [facility] Comment on above: . Test Performed by [id number] [place] [address] LAB [facility] Troponin Ion 02-10-2021 Troponin I.cardiac [Mass/Vol] ng/mL Normal 0.000-0.034 [facility] Comment on above: Result Comment: . Performed By: #### T ROPN #### [address] Troponin I.cardiac [Mass/Vol] 0.012 ng/mL Normal 0.000-0.034 [facility] Comment on above: Moderately hemolysed , interpret with caution. . Result Comment: Mode rately hemolysed, interpret with caution. . Performed By: #### T ROPN #### [facility] [address] [place], [place] Troponin I.cardiac [Mass/Vol] ng/mL Normal 0.000-0.034 [facility] Comment on above: Result Comment: . Performed By: #### T ROPN #### [facility] [address] [place], [place] VL CAROTID BILATERALon 02-10 Radiology Study observation (narrative) [facility] Work Phone: APTTon 02-09-2021 aPTT Coag (Bld) [Time] 27.2 s Normal 20.0-30.5 [facility] Comment on above: Order Comment: giovany lopez Result Comment: NOTE : The therapeutic time for Heparin anticoagulation, based on Xa activity inhibition, is an APTT of 46-80 seconds. Performed By: #### T ROPN, HEMOG, APTT, PT #### [facility] [address] [place], [place] aPTT Coag (Bld) [Time] 27.2 s 20.0 - 30.5 s [facility] Comment on above: NOTE: The therapeuti c time for Heparin anticoagulation, based on Xa activity inhibition, is an APTT of 46-80 seconds. BMP, Whole Blood (POCT)on Anion gap [Moles/Vol] 13.00 mmol/L Normal 3.00-13.00 S [facility] Comment on above: Performed By: #### T ROPN #### [facility] [address] [place], [place] Calcium, Ionized WB 4.6 mg/dL Normal 4.3-5.2 [facility] Comment on above: Result Comment: Perf ormed by [employer] i-STAT CLIA ID:[id number] [place], [place] Performed By: #### T ROPN #### [facility] [address] [place], [place] Chloride [Moles/Vol] 102 mmol/L Normal 98-114 [facility] Comment on above: Performed By: #### T ROPN #### [facility] [address] [place], [place] CO2 [Moles/Vol] 24 mmol/L Normal 21-29 [facility] Comment on above: Performed By: #### T ROPN #### [facility] [address] [place], [place] Creatinine [Mass/Vol] 0.80 mg/dL Normal 0.60-1.30 [facility] Comment on above: Performed By: #### T ROPN #### [facility] [address] [place], [place] eGFR OTHER > 90.0 Normal >60 [facility] Comment on above: Result Comment: KDIG O guidelines provide the following GFR categories: Stage GFR(ml/min/1.73 m2) Terms G1 >=90 Normal or high G2 60-89 Mildly decreased* G3a 45-59 Mildly to moderately decreased G3b 30-44 Moderately to severely decreased G4 15-29 Severely decreased G5 <15 Kidney failure *Relative to young adult level. In the absence of evidence of kidney damage, neither GFR category G1 nor G2 fulfill the criteria for CKD. The CKD-EPI equation is validated in individuals 18 years of age and older. Currently the best equation for estimating glomerular filtration rate (GFR) from serum creatinine in children is the Bedside Kenny equation. It is less accurate in patients with extremes of muscle mass, restriction of dietary protein, ingestion of creatine, extra-renal metabolism of creatinine, or treatment with medications that affect renal tubular creatinine secretion. Performed By: #### T SAMANTHAN #### [facility] [address] [place], [place] GFR/1.73 sq M.predicted among blacks MDRD (S/P/Bld) [Vol rate/Area] mL/min/{1.73_m2} Normal >60 [facility] Comment on above: Performed By: #### T ROPN #### [facility] [address] [place], [place] Glucose [Mass/Vol] 99 mg/dL Normal 70-100 [facility] Comment on above: Performed By: #### T SAMANTHAN #### [place] [address] [place], [place] Potassium [Moles/Vol] 3.6 mmol/L Normal 3.4-5.1 [facility] Comment on above: Performed By: #### T ROPN #### [place] [address] [place], [place] Sodium [Moles/Vol] 139 mmol/L Normal 133-145 [facility] Comment on above: Performed By: #### T ROPN #### [facility] [address] [place], [place] Urea nitrogen [Mass/Vol] 13 mg/dL Normal 4-22 [facility] Comment on above: Performed By: #### T ROPN #### [place] [address] [place], [place] CBCon 02-09-2021 Hematocrit (Bld) [Volume fraction] 43.7 % 40.0 - 52.0 % [facility] Hemoglobin.gastrointes tinal spec 1 Ql (Stl) 14.7 g/dL 13.0 - 18.0 g/dL [facility] MCH (RBC) [Entitic mass] 30.6 pg 26.0 - 34.0 pg [facility] MCHC (RBC) [Mass/Vol] 33.6 % 32.0 - 36.0 % [facility] MCV (RBC) [Entitic vol] 91.1 fL 80.0 - 98.0 fL [facility] Platelet distribution width (Bld) [Ratio] 13.5 % 11.5 - 14.5 % [facility] Platelet mean volume (Bld) [Entitic vol] 8.3 fL 7.4 - 10.4 fL [facility] Platelets (Bld) [#/Vol] 299 10*3/uL 140 - 440 10*3/uL [facility] RBC (Bld) [#/Vol] 4.80 10*6/uL 4.40 - 5.9 0 10*6/uL [facility] WBC (Bld) [#/Vol] 10.2 10*3/uL 3.6 - 10.7 10*3/uL [facility] Test Performed by [facility], [facility] [place] [address] two [facility] [place] [facility] BRAIN PERFUSIONon Patient Name: JOSELITO GARRETT Computed Tomography ACCESSION EXAM DATE/TIME PROCEDURE ORDERING PROVIDER [id number] 02/09/2021 13:[address] Cerebral Perfusion UNASSIGNED, UNASSIGNED CPT code 0042T Reason For Exam (CT Cerebral Perfusion) Stroke Symptoms Report Interpretation of this examination was delayed by computer systems error. This examination was received by me for interpretation on 02/09/2021 at approximately 1500 hours. CLINICAL INFORMATION: Right-sided weakness. Expressive aphasia. Stroke symptoms. Stroke team. CT perfusion brain imaging: Contrast: Isovue-370, 50 mL.. Dynamic 4-D CT Perfusion study of the whole brain was performed following administration of intravenous contrast. RAPID software color blood flow maps of the brain with quantitative assessment of Tmax, mean transit time, cerebral blood flow and cerebral blood volume was provided. CT perfusion: There is focal decreased perfusion in the medial left temporal lobe and left thalamic region corresponding to the area of hypodensity on the earlier CT head examination. No global or other regional perfusion abnormalities are noted on the Tmax, MTT, CBV, or CBF maps. CT perfusion quantitative findings: Cerebral maps: CBF<30%: 0 ml. Tmax >6 sec: 10 ml. Mismatch volume: 10 ml. IMPRESSION: 1. Focal decreased perfusion in the medial left temporal lobe and left thalamic region corresponding to the area of hypodensity in the anterior liver CT head consistent with a subacute infarct. 2. No global or other regional perfusion deficits. CTR notification: The above findings were communicated to Dr. Graff by me by telephone at the time of dictation on 02/09/2021 at approximately 1305 hours. Computed Tomography Report Report Dictated on --- Final --- Dictated: 02/09/2021 3:03 pm Dictating Physician: MD FRANCIS HARLAN Signed Date and Time: 02/09/2021 3:08 pm Signed by: MD FRANCIS HARLAN Transcribed Date and Time: 02/09/2021 3:03 [facility] Jerome Francis MD - 02/09/2021 Patient Name: JOSELITO GARRETT Computed Tomography ACCESSION EXAM DATE/TIME PROCEDURE ORDERING PROVIDER [id number] 02/09/2021 13:[address] Cerebral Perfusion UNASSIGNED, UNASSIGNED CPT code 0042T Reason For Exam (CT Cerebral Perfusion) Stroke Symptoms Report Interpretation of this examination was delayed by computer systems error. This examination was received by me for interpretation on 02/09/2021 at approximately 1500 hours. CLINICAL INFORMATION: Right-sided weakness. Expressive aphasia. Stroke symptoms. Stroke team. CT perfusion brain imaging: Contrast: Isovue-370, 50 mL.. Dynamic 4-D CT Perfusion study of the whole brain was performed following administration of intravenous contrast. RAPID software color blood flow maps of the brain with quantitative assessment of Tmax, mean transit time, cerebral blood flow and cerebral blood volume was provided. CT perfusion: There is focal decreased perfusion in the medial left temporal lobe and left thalamic region corresponding to the area of hypodensity on the earlier CT head examination. No global or other regional perfusion abnormalities are noted on the Tmax, MTT, CBV, or CBF maps. CT perfusion quantitative findings: Cerebral maps: CBF<30%: 0 ml. Tmax >6 sec: 10 ml. Mismatch volume: 10 ml. IMPRESSION: 1. Focal decreased perfusion in the medial left temporal lobe and left thalamic region corresponding to the area of hypodensity in the anterior liver CT head consistent with a subacute infarct. 2. No global or other regional perfusion deficits. CTR notification: The above findings were communicated to Dr. Graff by me by telephone at the time of dictation on 02/09/2021 at approximately 1305 hours. Computed Tomography Report Report Dictated on --- Final --- Dictated: 02/09/2021 3:03 pm Dictating Physician: MD FRANCIS HARLAN Signed Date and Time: 02/09/2021 3:08 pm Signed by: MD FRANCIS HARLAN Transcribed Date and Time: 02/09/2021 3:03 [facility] Work Phone: [facility] Work Phone: CT Cerebral Perfusionon 11-0 CT Cerebral Perfusion [id number] Tom[facility] ACCESSION EXAM DATE/TIME PROCEDURE ORDERING PROVIDER [id number] 02/09/2021 13:[address] Cerebral Perfusion UNASSIGNED, UNASSIGNED CPT code 0042T Reason For Exam (CT Cerebral Perfusion) Stroke Symptoms Report Interpretation of this examination was delayed by computer systems error. This examination was received by me for interpretation on 02/09/2021 at approximately 1500 hours. CLINICAL INFORMATION: Right-sided weakness. Expressive aphasia. Stroke symptoms. Stroke team. CT perfusion brain imaging: Contrast: Isovue-370, 50 mL.. Dynamic 4-D CT Perfusion study of the whole brain was performed following administration of intravenous contrast. RAPID software color blood flow maps of the brain with quantitative assessment of Tmax, mean transit time, cerebral blood flow and cerebral blood volume was provided. CT perfusion: There is focal decreased perfusion in the medial left temporal lobe and left thalamic region corresponding to the area of hypodensity on the earlier CT head examination. No global or other regional perfusion abnormalities are noted on the Tmax, MTT, CBV, or CBF maps. CT perfusion quantitative findings: Cerebral maps: CBF<30%: 0 ml. Tmax >6 sec: 10 ml. Mismatch volume: 10 ml. IMPRESSION: 1. Focal decreased perfusion in the medial left temporal lobe and left thalamic region corresponding to the area of hypodensity in the anterior liver CT head consistent with a subacute infarct. 2. No global or other regional perfusion deficits. CTR notification: The above findings were communicated to Dr. Graff by me by telephone at the time of dictation on 02/09/2021 at approximately 1305 hours. Computed Tomography Report Report Dictated on Final Dictated: 02/09/2021 3:03 pm Dictating Physician: MD FRANCIS HARLAN Signed Date and Time: 02/09/2021 3:08 pm Signed by: MD FRANCIS HARLAN Transcribed Date and Time: 02/09/2021 3:03 Normal [facility] CT HEAD WO CONTRASTon 2020 Patient Name: JOSELITO GARRETT Computed Tomography ACCESSION EXAM DATE/TIME PROCEDURE ORDERING PROVIDER [id number] 02/09/2021 13:[address] Head or Brain w/o UNASSIGNED, UNASSIGNED Contrast CPT code 62610 Reason For Exam (CT Head or Brain w/o Contrast) Stroke Symptoms Report CLINICAL INFORMATION: Right-sided weakness. Expressive aphasia. Stroke symptoms. Stroke team. CT HEAD WITHOUT INTRAVENOUS CONTRAST: Volume acquisition CT images are obtained from foramen magnum to vertex without intravenous contrast with axial, coronal and sagittal 2-D reconstructions. The ventricles and sulci are normal in size and configuration. No intra-axial mass lesion or mass-effect is seen. There is a focal area of hypodensity in the medial mid left temporal lobe and left periatrial white matter extending into the left thalamus compatible with a subacute infarct. Vasogenic edema related to neoplasm is not excluded. There is no evidence of acute intracranial hemorrhage or other focal abnormal intra-axial densities. ASPECTS score: 8/10 IMPRESSION: 1. Hypodensity in the medial aspect of the mid left temporal lobe and left periatrial white matter extending into the left thalamus compatible with a subacute infarct in the distribution of posterior branches of the left middle cerebral artery. Vasogenic edema secondary to neoplasm is not excluded. Correlate with clinical parameters. MRI may be of value in further evaluation. 2. No evidence of other acute or significant intracranial abnormality. CTR notification: The above findings were communicated to Dr. Graff by me by telephone on 02/09/2021 at approximately 1333 hours. Report Dictated on --- Final --- Dictated: 02/09/2021 1:30 pm Dictating Physician: MD FRANCIS HARLAN Signed Date and Time: 02/09/2021 1:42 pm Signed by: MD FRANCIS HARLAN Transcribed Date and Time: 02/09/2021 1:30 [facility] Jerome Francis MD - 02/09/2021 [id number] Computed Tomography ACCESSION EXAM DATE/TIME PROCEDURE ORDERING PROVIDER [id number] 02/09/2021 13:[address] Head or Brain w/o UNASSIGNED, UNASSIGNED Contrast CPT code 35477 Reason For Exam (CT Head or Brain w/o Contrast) Stroke Symptoms Report CLINICAL INFORMATION: Right-sided weakness. Expressive aphasia. Stroke symptoms. Stroke team. CT HEAD WITHOUT INTRAVENOUS CONTRAST: Volume acquisition CT images are obtained from foramen magnum to vertex without intravenous contrast with axial, coronal and sagittal 2-D reconstructions. The ventricles and sulci are normal in size and configuration. No intra-axial mass lesion or mass-effect is seen. There is a focal area of hypodensity in the medial mid left temporal lobe and left periatrial white matter extending into the left thalamus compatible with a subacute infarct. Vasogenic edema related to neoplasm is not excluded. There is no evidence of acute intracranial hemorrhage or other focal abnormal intra-axial densities. ASPECTS score: 8/10 IMPRESSION: 1. Hypodensity in the medial aspect of the mid left temporal lobe and left periatrial white matter extending into the left thalamus compatible with a subacute infarct in the distribution of posterior branches of the left middle cerebral artery. Vasogenic edema secondary to neoplasm is not excluded. Correlate with clinical parameters. MRI may be of value in further evaluation. 2. No evidence of other acute or significant intracranial abnormality. CTR notification: The above findings were communicated to Dr. Graff by hi by telephone on 02/09/2021 at approximately 1333 hours. Report Dictated on --- Final --- Dictated: 02/09/2021 1:30 pm Dictating Physician: MD FRANCIS HARLAN Signed Date and Time: 02/09/2021 1:42 pm Signed by: MD FRANCIS HARLAN Transcribed Date and Time: 02/09/2021 1:30 [facility] Work Phone: CT HEAD WO CONTRASTOrdered B y: Jerome Francis on 02-09-2021 [facility] Work Phone: CT Head or Brain w/o Contras ton 02-09-2021 CT Head or Brain w/o Contrast Patient [facility]: [id number] Computed Tomography ACCESSION EXAM DATE/TIME PROCEDURE ORDERING PROVIDER [id number] 02/09/2021 13:[address] Head or Brain w/o UNASSIGNED, UNASSIGNED Contrast CPT code 53870 Reason For Exam (CT Head or Brain w/o Contrast) Stroke Symptoms Report CLINICAL INFORMATION: Right-sided weakness. Expressive aphasia. Stroke symptoms. Stroke team. CT HEAD WITHOUT INTRAVENOUS CONTRAST: Volume acquisition CT images are obtained from foramen magnum to vertex without intravenous contrast with axial, coronal and sagittal 2-D reconstructions. The ventricles and sulci are normal in size and configuration. No intra-axial mass lesion or mass-effect is seen. There is a focal area of hypodensity in the medial mid left temporal lobe and left periatrial white matter extending into the left thalamus compatible with a subacute infarct. Vasogenic edema related to neoplasm is not excluded. There is no evidence of acute intracranial hemorrhage or other focal abnormal intra-axial densities. ASPECTS score: 8/10 IMPRESSION: 1. Hypodensity in the medial aspect of the mid left temporal lobe and left periatrial white matter extending into the left thalamus compatible with a subacute infarct in the distribution of posterior branches of the left middle cerebral artery. Vasogenic edema secondary to neoplasm is not excluded. Correlate with clinical parameters. MRI may be of value in further evaluation. 2. No evidence of other acute or significant intracranial abnormality. CTR notification: The above findings were communicated to Dr. Graff by hi by telephone on 02/09/2021 at approximately 1333 hours. Report Dictated on Final Dictated: 02/09/2021 1:30 pm Dictating Physician: MD FRANCIS HARLAN Signed Date and Time: 02/09/2021 1:42 pm Signed by: MD FRANCIS HARLAN Transcribed Date and Time: 02/09/2021 1:30 Normal [facility] CTA HEAD NECK W WO CONTRASTo n 02-09-2021 [id number] Computed Tomography ACCESSION EXAM DATE/TIME PROCEDURE ORDERING PROVIDER [id number] 02/09/2021 13:26 EST CTA Head/Neck w/ + w/o UNASSIGNED, UNASSIGNED contrast CPT code 27923 01346 Q9967 Reason For Exam (CTA Head/Neck w/ + w/o contrast) Stroke Symptoms Report CLINICAL INFORMATION: Right-sided weakness. Expressive aphasia. Stroke symptoms. Stroke team. CTA brain and neck with intravenous contrast with 3-D reconstructions: Contrast: Isovue-370, 50 mL. (Additional to CT perfusion.) CTA brain: CT angiographic studies of the intracranial vessels were performed following the acquisition of high resolution helical CT data during bolus contrast infusion with axial, coronal and sagittal 2-D reconstructions. The data set was then concurrently post processed on the [employer] workstation by me with reconstructed 3-D shaded surface angiographic renderings of the arterial intracranial vessels better visualize arterial vascular anatomy. A noncontrast CT head examination was obtained and reported separately. CT angiographic study demonstrates patent flow in the distal left internal carotid and basilar arteries. There is no demonstrable blood flow in the intracranial portion of the distal right internal carotid artery. There is atherosclerotic calcification of the intracavernous portions of both internal carotid arteries arteries with patent blood flow in both, most likely secondary to retrograde blood flow on the right, with mild bilateral stenosis. The right and left anterior and middle cerebral arteries are patent. Neither posterior communicating artery is visualized. There is a widely patent anterior communicating artery. The basilar artery and both posterior cerebral arteries are small in in caliber. Flow is demonstrated in small caliber distal vertebral arteries left slightly larger than right.. There is no evidence of aneurysm or vascular malformation. IMPRESSION: 1. 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 2. Generally small caliber vertebrobasilar arterial system without evidence of distal occlusion. 2. Patent distal left internal carotid, and bilateral anterior and middle cerebral arteries. CTA neck: Volume acquisition CT images of the extracranial vessels were obtained during bolus intravenous contrast administration with axial, coronal and sagittal 2-D reconstructions. The imaging data set was concurrently post processed on the [employer] workstation with 2-D maximum intensity projection (MIP) and multiprojectional 3-D surface shaded reconstructed angiographic images to better visualize gross arterial vascular anatomy. There is patent flow in the right and left common carotid arteries. There is no evidence of arterial dissection. There is a noncalcified atherosclerotic disease at the origin of the left vertebral artery with diminished flow and nonvisualization of the proximal segment of the left vertebral artery. There is reconstitution of flow of the mid and distal left cervical vertebral artery which may be due to retrograde flow. The entire right and remainder of the left cervical vertebral arteries are diffusely diminutive. The findings are most suggestive of a chronic process most likely secondary to atherosclerotic disease particularly without a provided history of trauma. There is no convincing evidence of arterial dissection. The right carotid bifurcation demonstrates atherosclerotic plaque with posterior atherosclerotic calcification. There is approximately 30% stenosis of the bifurcation. There is no visible blebs are in the right cervical internal carotid artery consistent with occlusion, likely chronic. The left carotid bifurcation demonstrates anterior and posterior atherosclerotic plaque with mild luminal stenosis (approximately 10-20% stenosis). There is no ulceration or dissection. There is patent flow in the remainder of the left internal carotid artery. IMPRESSION: 1. 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 2. Diffusely diminutive bilateral cervical vertebral arteries most likely related to chronic atherosclerotic disease although a developmental component is not excluded. There is reconstitution of flow in the distal left vertebral artery secondary to retrograde flow. 3. Atherosclerotic disease of both common carotid artery bifurcations with atherosclerotic calcification, left greater (more content not included)... [facility] Jerome Zavaleta MD - 02/09/2021 [facility]: [id number] Computed Tomography ACCESSION EXAM DATE/TIME PROCEDURE ORDERING PROVIDER [id number] 02/09/2021 13:26 EST CTA Head/Neck w/ + w/o UNASSIGNED, UNASSIGNED contrast CPT code 40213 [id number] Q9967 Reason For Exam (CTA Head/Neck w/ + w/o contrast) Stroke Symptoms Report CLINICAL INFORMATION: Right-sided weakness. Expressive aphasia. Stroke symptoms. Stroke team. CTA brain and neck with intravenous contrast with 3-D reconstructions: Contrast: Isovue-370, 50 mL. (Additional to CT perfusion.) CTA brain: CT angiographic studies of the intracranial vessels were performed following the acquisition of high resolution helical CT data during bolus contrast infusion with axial, coronal and sagittal 2-D reconstructions. The data set was then concurrently post processed on the [employer] workstation by hi with reconstructed 3-D shaded surface angiographic renderings of the arterial intracranial vessels better visualize arterial vascular anatomy. A noncontrast CT head examination was obtained and reported separately. CT angiographic study demonstrates patent flow in the distal left internal carotid and basilar arteries. There is no demonstrable blood flow in the intracranial portion of the distal right internal carotid artery. There is atherosclerotic calcification of the intracavernous portions of both internal carotid arteries arteries with patent blood flow in both, most likely secondary to retrograde blood flow on the right, with mild bilateral stenosis. The right and left anterior and middle cerebral arteries are patent. Neither posterior communicating artery is visualized. There is a widely patent anterior communicating artery. The basilar artery and both posterior cerebral arteries are small in in caliber. Flow is demonstrated in small caliber distal vertebral arteries left slightly larger than right.. There is no evidence of aneurysm or vascular malformation. IMPRESSION: 1. 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 2. Generally small caliber vertebrobasilar arterial system without evidence of distal occlusion. 2. Patent distal left internal carotid, and bilateral anterior and middle cerebral arteries. CTA neck: Volume acquisition CT images of the extracranial vessels were obtained during bolus intravenous contrast administration with axial, coronal and sagittal 2-D reconstructions. The imaging data set was concurrently post processed on the [employer] workstation with 2-D maximum intensity projection (MIP) and multiprojectional 3-D surface shaded reconstructed angiographic images to better visualize gross arterial vascular anatomy. There is patent flow in the right and left common carotid arteries. There is no evidence of arterial dissection. There is a noncalcified atherosclerotic disease at the origin of the left vertebral artery with diminished flow and nonvisualization of the proximal segment of the left vertebral artery. There is reconstitution of flow of the mid and distal left cervical vertebral artery which may be due to retrograde flow. The entire right and remainder of the left cervical vertebral arteries are diffusely diminutive. The findings are most suggestive of a chronic process most likely secondary to atherosclerotic disease particularly without a provided history of trauma. There is no convincing evidence of arterial dissection. The right carotid bifurcation demonstrates atherosclerotic plaque with posterior atherosclerotic calcification. There is approximately 30% stenosis of the bifurcation. There is no visible blebs are in the right cervical internal carotid artery consistent with occlusion, likely chronic. The left carotid bifurcation demonstrates anterior and posterior atherosclerotic plaque with mild luminal stenosis (approximately 10-20% stenosis). There is no ulceration or dissection. There is patent flow in the remainder of the left internal carotid artery. IMPRESSION: 1. 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 2. Diffusely diminutive bilateral cervical vertebral arteries most likely related to chronic atherosclerotic disease although a developmental component is not excluded. There is reconstitution of flow in the distal left vertebral artery secondary to retrograde flow. 3. Atherosclerotic disease of both common carotid artery bifurcations with atherosclerotic calcification, left greater than right. There is approximately 30% stenosis right and 10-20% on the left common carotid artery bifurcation (more content not included)... [facility] Work Phone: [facility] Work Phone: CTA Head/Neck w/ + w/o contr flip 02-09-2021 CTA Head/Neck w/ + w/o contrast Patient Name: JOSELITO GARRETT [facility]#: [id number] Computed Tomography ACCESSION EXAM DATE/TIME PROCEDURE ORDERING PROVIDER [id number] 02/09/2021 13:26 EST CTA Head/Neck w/ + w/o UNASSIGNED, UNASSIGNED contrast CPT code 82387 [id number] Q9967 Reason For Exam (CTA Head/Neck w/ + w/o contrast) Stroke Symptoms Report CLINICAL INFORMATION: Right-sided weakness. Expressive aphasia. Stroke symptoms. Stroke team. CTA brain and neck with intravenous contrast with 3-D reconstructions: Contrast: Isovue-370, 50 mL. (Additional to CT perfusion.) CTA brain: CT angiographic studies of the intracranial vessels were performed following the acquisition of high resolution helical CT data during bolus contrast infusion with axial, coronal and sagittal 2-D reconstructions. The data set was then concurrently post processed on the [employer] workstation by hi with reconstructed 3-D shaded surface angiographic renderings of the arterial intracranial vessels better visualize arterial vascular anatomy. A noncontrast CT head examination was obtained and reported separately. CT angiographic study demonstrates patent flow in the distal left internal carotid and basilar arteries. There is no demonstrable blood flow in the intracranial portion of the distal right internal carotid artery. There is atherosclerotic calcification of the intracavernous portions of both internal carotid arteries arteries with patent blood flow in both, most likely secondary to retrograde blood flow on the right, with mild bilateral stenosis. The right and left anterior and middle cerebral arteries are patent. Neither posterior communicating artery is visualized. There is a widely patent anterior communicating artery. The basilar artery and both posterior cerebral arteries are small in in caliber. Flow is demonstrated in small caliber distal vertebral arteries left slightly larger than right.. There is no evidence of aneurysm or vascular malformation. IMPRESSION: 1. 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 2. Generally small caliber vertebrobasilar arterial system without evidence of distal occlusion. 2. Patent distal left internal carotid, and bilateral anterior and middle cerebral arteries. CTA neck: Volume acquisition CT images of the extracranial vessels were obtained during bolus intravenous contrast administration with axial, coronal and sagittal 2-D reconstructions. The imaging data set was concurrently post processed on the [employer] workstation with 2-D maximum intensity projection (MIP) and multiprojectional 3-D surface shaded reconstructed angiographic images to better visualize gross arterial vascular anatomy. There is patent flow in the right and left common carotid arteries. There is no evidence of arterial dissection. There is a noncalcified atherosclerotic disease at the origin of the left vertebral artery with diminished flow and nonvisualization of the proximal segment of the left vertebral artery. There is reconstitution of flow of the mid and distal left cervical vertebral artery which may be due to retrograde flow. The entire right and remainder of the left cervical vertebral arteries are diffusely diminutive. The findings are most suggestive of a chronic process most likely secondary to atherosclerotic disease particularly without a provided history of trauma. There is no convincing evidence of arterial dissection. The right carotid bifurcation demonstrates atherosclerotic plaque with posterior atherosclerotic calcification. There is approximately 30% stenosis of the bifurcation. There is no visible blebs are in the right cervical internal carotid artery consistent with occlusion, likely chronic. The left carotid bifurcation demonstrates anterior and posterior atherosclerotic plaque with mild luminal stenosis (approximately 10-20% stenosis). There is no ulceration or dissection. There is patent flow in the remainder of the left internal carotid artery. IMPRESSION: 1. 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 2. Diffusely diminutive bilateral cervical vertebral arteries most likely related to chronic atherosclerotic disease although a developmental component is not excluded. There is reconstitution of flow in the distal left vertebral artery secondary to retrograde flow. 3. Atherosclerotic disease of both common carotid artery bifurcations with atherosclerotic calcification, left greater than right. There is approximately 30% stenosis right and 10-20% on the left common carotid artery bifurcation by NASCET criteria 4. Occlusion of the right internal carotid artery (100% stenosis by NASCET criteria) extending through the inf (more content not included)... Normal [facility] ED Provider Noteon 1 ED Provider Note [facility] EMU EMERGENCY DEPARTMENT ENCOUNTER Pt Name: Joselito Garrett Birthdate 1970 Date of evaluation: 02/09/2021 Provider: Harsha Sanders, CHIEF COMPLAINT Chief Complaint Patient presents with ? Extremity Weakness right sided weakness. LKW Monday HISTORY OF PRESENT ILLNESS (Location/Symptom, Timing/Onset, Context/Setting, Quality, Duration, Modifying Factors, Severity) Note limiting factors. I wore a KN95 mask for the entirety of this encounter. Does this patient come from an ECF, SNF, Rehab, Senior Living or other Congregate setting: No (If yes to above patient needs a Covid-19 test) HPI Joselito Garrett is a 50 y.o. male who presents to the emergency department as a stroke team via EMS. Patient's last known normal was approximately 1430 on 02/08. Patient has been complaining of right-sided facial, and extremity weakness in addition to word finding difficulties. He is taken directly to the CT scanner after a brief history was obtained. Nursing Notes were reviewed. REVIEW OF SYSTEMS (2+ for level 4; 10+ for level 5) Review of Systems Unable to perform ROS: Acuity of condition PAST MEDICAL HISTORY History reviewed. No pertinent past medical history. SURGICAL HISTORY History reviewed. No pertinent surgical history. CURRENT MEDICATIONS There are no discharge medications for this patient. ALLERGIES Bee venom, Penicillins, and Sulfa antibiotics FAMILY HISTORY History reviewed. No pertinent family history. SOCIAL HISTORY Social History Socioeconomic History ? Marital status: Single Spouse name: None ? Number of children: None ? Years of education: None ? Highest education level: None Occupational History ? None Tobacco Use ? Smoking status: Current Every Day Smoker Packs/day: 1.00 Years: 30.00 Pack years: 30.00 Types: Cigarettes ? Smokeless tobacco: Never Used Substance and Sexual Activity ? Alcohol use: Not Currently ? Drug use: Never ? Sexual activity: None Other Topics Concern ? None Social History Narrative ? None Social Determinants of Health Financial Resource Strain: ? Difficulty of Paying Living Expenses: Not on file Food Insecurity: ? Worried About Running Out of Food in the Last Year: Not on file ? Ran Out of Food in the Last Year: Not on file Transportation Needs: ? Lack of Transportation (Medical): Not on file ? Lack of Transportation (Non-Medical): Not on file Physical Activity: ? Days of Exercise per Week: Not on file ? Minutes of Exercise per Session: Not on file Stress: ? Feeling of Stress : Not on file Social Connections: ? Frequency of Communication with Friends and Family: Not on file ? Frequency of Social Gatherings with Friends and Family: Not on file ? Attends Protestant Services: Not on file ? Active Member of Clubs or Organizations: Not on file ? Attends Club or Organization Meetings: Not on file ? Marital Status: Not on file Intimate Partner Violence: ? Fear of Current or Ex-Partner: Not on file ? Emotionally Abused: Not on file ? Physically Abused: Not on file ? Sexually Abused: Not on file Housing Stability: ? Unable to Pay for Housing in the Last Year: Not on file ? Number of Places Lived in the Last Year: Not on file ? Unstable Housing in the Last Year: Not on file SCREENINGS NIH Stroke Scale NIH Stroke Scale Assessed: Yes Interval: Baseline Level of Consciousness (1a. ): Alert LOC Questions (1b. ): Answers neither question correctly LOC Commands (1c. ): Performs both tasks correctly Best Gaze (2. ): Normal Visual (3. ): No visual loss Facial Palsy (4. ): Normal symmetrical movement Motor Arm, Left (5a. ): No drift Motor Arm, Right (5b. ): Drift, but does not hit bed Motor Leg, Left (6a. ): No drift Motor Leg, Right (6b. ): Drift, but does not hit bed Limb Ataxia (7. ): (!) Present in one limb (Right Arm ) Sensory (8. ): Normal Best Language (9. ): Mild to moderate aphasia Dysarthria (10. ): Normal Extinction and Inattention (11): No abnormality Total: 6Glasgow Coma Scale Eye Opening: Spontaneous Best Verbal Response: Oriented Best Motor Response: Obeys commands [place] Coma Scale Score: 15 PHYSICAL EXAM (up to 7 for level 4, 8 or more for level 5) ED Triage Vitals BP Temp Temp Source Pulse Resp SpO2 Height Weight 02/09/21 1346 02/09/21 1341 02/09/21 1341 02/09/21 1341 02/09/21 1341 02/09/21 1341 02/09/21 1346 02/09/21 1424 (!) 164/107 98.9 ?F (37.2 ?C) Oral 92 22 99 % 6' 1 (1.854 m) 181 lb 1.6 oz (82.1 kg) Physical Exam Constitutional: General: He is not in acute distress. Appearance: He is not ill-appearing or diaphoretic. HENT: Head: Normocephalic and atraumatic. Nose: Nose normal. Mouth/Throat: Mouth: Mucous membranes are moist. Eyes: General: No scleral icterus. Pupils: Pupils are equal, round, and reactive to light. Cardiovascular: Rate and Rhythm: Normal rate and regular rhythm. Pulses: Nor (more content not included)... Normal [facility] ED Provider Note Emergency Department Encounter [facility] EMERGENCY DEPT Patient: Joselito Garrett : 1970 Date of Evaluation: 02/09/2021 ED Supervising Physician: Iliana Cali MD I independently examined and evaluated Joselito Garrett. In brief, Joselito Garrett is a 50 y.o. male that presents to the emergency department for strokelike symptoms. Per EMS, they were called because the patient developed right-sided weakness and speech difficulty yesterday around 2:30 PM. Focused exam: Right upper and lower extremity drift. No facial droop. Brief ED course/MDM: Presentation concerning for stroke. Stroke team activated prior to the patient's arrival and he was taken to the CT scanner immediately. All diagnostic, treatment, and disposition decisions were made by myself in conjunction with the Resident. I also supervised espino portions of any procedures performed by the Resident. For all further details of the patient's emergency department visit, please see their documentation. (Please note that portions of this note may have been completed with a voice recognition program. Efforts were made to edit the dictations but occasionally words are mis-transcribed.) Iliana Cali MD Acute Care [employer] Iliana Cali MD 02/09/21 1357 Normal [facility] Hemogramon 02-09-2021 Erythrocyte distribution width (RBC) [Ratio] 13.5 % Normal 11.5-14.5 [facility] Comment on above: Order Comment: two g reen Performed By: #### T ROPN, HEMOG, APTT, PT #### [address] Hematocrit (Bld) [Volume fraction] 43.7 % Normal 40.0-52.0 [facility] Comment on above: Order Comment: two g reen Performed By: #### T ROPN, HEMOG, APTT, PT #### [address] [address] [place], [place] Hemoglobin (Bld) [Mass/Vol] 14.7 g/dL Normal 13.0-18.0 [facility] Comment on above: Order Comment: two g reen Performed By: #### T ROPN, HEMOG, APTT, PT #### [address] [address] [place], [place] MCH (RBC) [Entitic mass] 30.6 pg Normal 26.0-34.0 [facility] Comment on above: Order Comment: two g reen Performed By: #### T ROPN, HEMOG, APTT, PT #### [address] [address] [place], [place] MCHC 33.6 % Normal 32.0-36.0 [facility] Comment on above: Order Comment: two g reen Performed By: #### T ROPN, HEMOG, APTT, PT #### [address] [address] [place], [place] MCV (RBC) [Entitic vol] 91.1 fL Normal 80.0-98.0 [facility] Comment on above: Order Comment: two g reen Performed By: #### T ROPN, HEMOG, APTT, PT #### [address] [address] [place], [place] Platelet mean volume (Bld) [Entitic vol] 8.3 fL Normal 7.4-10.4 [facility] Comment on above: Order Comment: two g reen Performed By: #### T ROPN, HEMOG, APTT, PT #### [address] [address] [place], [place] Platelets (Bld) [#/Vol] 299 10*3/uL Normal 140-440 [facility] Comment on above: Order Comment: two g reen Performed By: #### T ROPN, HEMOG, APTT, PT #### [address] [address] [place], [place] RBC (Bld) [#/Vol] 4.80 10*6/uL Normal 4.40-5.90 [facility] Comment on above: Order Comment: two g reen Performed By: #### T ROPN, HEMOG, APTT, PT #### [address] [address] [place], [place] WBC (Bld) [#/Vol] 10.2 10*3/uL Normal 3.6-10.7 [facility] Comment on above: Order Comment: two g reen Performed By: #### T ROPN, HEMOG, APTT, PT #### [address] [place], [place] No Panel Informationon 02-09 Test Performed by [address] LAB [facility] Radiology Study observation (narrative) [facility] Work Phone: POC BMP, WHOLE BLOODon 02-09 Anion gap [Moles/Vol] 13.00 mmol/L 3.00 - 13.00 mmol/L [facility] Calcium [Mass/Vol] 4.6 mg/dL 4.3 - 5.2 mg/dL [facility] Comment on above: Performed by [employer] i-STAT CLIA ID:[id number] [place], [place] Chloride [Moles/Vol] 102 mmol/L 98 - 11 4 mmol/L [facility] CO2 [Moles/Vol] 24 mmol/L 21 - 29 mmol/L [facility] Creatinine [Mass/Vol] 0.80 mg/dL 0.60 - 1.30 mg/dL [facility] GFR Non- >90.0 >60 mL/min [facility] Comment on above: KDIGO guidelines pro vide the following GFR categories: Stage GFR(ml/min/1.73 m2) Terms G1 >=90 Normal or high G2 60-89 Mildly decreased* G3a 45-59 Mildly to moderately decreased G3b 30-44 Moderately to severely decreased G4 15-29 Severely decreased G5 <15 Kidney failure *Relative to young adult level. In the absence of evidence of kidney damage, neither GFR category G1 nor G2 fulfill the criteria for CKD. The CKD-EPI equation is validated in individuals 18 years of age and older. Currently the best equation for estimating glomerular filtration rate (GFR) from serum creatinine in children is the Bedside Kenny equation. It is less accurate in patients with extremes of muscle mass, restriction of dietary protein, ingestion of creatine, extra-renal metabolism of creatinine, or treatment with medications that affect renal tubular creatinine secretion. GFR/1.73 sq M.predicted among blacks MDRD (S/P/Bld) [Vol rate/Area] mL/min/{1.73_m2} >60 mL/min [facility] Glucose [Mass/Vol] 99 mg/dL 70 - 100 mg/dL [facility] Potassium [Moles/Vol] 3.6 mmol/L 3.4 - 5.1 mmol/L [facility] Sodium [Moles/Vol] 139 mmol/L 133 - 145 mmol/L [facility] Urea nitrogen [Mass/Vol] 13 mg/dL 4 - 22 mg/dL [facility] Test Performed by [facility] [employer] [id number] [place] [address] LAB [facility] Prothrombin Timeon INR 1.0 Normal 0.9-1.1 [facility] Comment on above: Order Comment: two g john Result Comment: Oren mmended Anticoagulant Therapy: SEE BELOW ----- INR of 2.0 - 3.0 : - Prophylaxis of Venous Thrombosis (high-risk surgery) - Treatment of Venous Thrombosis - Treatment of Pulmonary Embolism (Includes tissue heart valves, Acute Myocardial Infarction to prevent systemic embolism, Valvular Heart Disease, and Atrial Fibrillation) ----- INR of 2.5 - 3.5 : - Mechanical Prosthetic Valves (high risk) - If oral anticoagulant therapy is used to prevent Myocardial Infarction Performed By: #### T KAYLENE HEMOG, APTT, PT #### [address] [id number] PT Coag (PPP) [Time] 10.8 s Normal 9.0-12.[address] [facility] [employer] [facility] Comment on above: Order Comment: two g john Result Comment: . Performed By: #### T KAYLENE, HEMOG, APTT, PT #### [address] [id number] Protime-INRon 02-09-2021 INR Coag (Bld) [Relative time] 1.0 {INR} [facility] Comment on above: Recommended Anticoag ulant Therapy: SEE BELOW ----- INR of 2.0 - 3.0 : - Prophylaxis of Venous Thrombosis (high-risk surgery) - Treatment of Venous Thrombosis - Treatment of Pulmonary Embolism (Includes tissue heart valves, Acute Myocardial Infarction to prevent systemic embolism, Valvular Heart Disease, and Atrial Fibrillation) ----- INR of 2.5 - 3.5 : - Mechanical Prosthetic Valves (high risk) - If oral anticoagulant therapy is used to prevent Myocardial Infarction PT Coag (PPP) [Time] 10.8 s 9.0 - 12.0 s [facility] Comment on above: . Troponinon 02-09-2021 Troponin I.cardiac [Mass/Vol] ng/mL 0.000 - 0.034 ng/mL [facility] Comment on above: . Test Performed by [address] [facility] Troponin I.cardiac [Mass/Vol] ng/mL 0.000 - 0.034 ng/mL [facility] Comment on above: . [place] [address] two green [facility] Troponin Ion 02-09-2021 Troponin I.cardiac [Mass/Vol] ng/mL Normal 0.000-0.034 [facility] Comment on above: Order Comment: giovany g eleanorn Result Comment: . Performed By: #### T ROPN, HEMOG, APTT, PT #### [address] [id number] Vital Signs Date Time Vital Sign Value Performing Clinician Delroy zelaya 10-28-2024 08:52-0400 Body height 185.[address] Callie Henriquez MD Work Phone: [facility] 10-28-2024 08:52-0400 Body mass index (BMI) [Ratio] 22.8 kg/m2 Dr. Callie Henriquez MD Work Phone: [facility] 10-28-2024 08:52-0400 Body temperature 98.9 [degF] Dr. Callie Henriquez MD Work Phone: [facility] 10-28-2024 08:52-0400 Body weight 78.[address] Callie Henriquez MD Work Phone: [facility] 10-28-2024 08:52-0400 Diastolic blood pressure 96 mm[Hg] Dr. Callie Henriquez MD Work Phone: [facility] 10-28-2024 08:52-0400 Heart rate 62 /min Dr. Callie Henriquez MD Work Phone: [facility] 10-28-2024 08:52-0400 Respiratory rate 16 /min Dr. Callie Henriquez MD Work Phone: [facility] 10-28-2024 08:52-0400 SaO2% (BldA) [Mass fraction] 98 % Dr. Callie Henriquez MD Work Phone: [facility] 10-28-2024 08:52-0400 Systolic blood pressure 161 mm[Hg] Dr. Callie Henriquez MD Work Phone: [facility] 05-09-2022 09:53-0500 Body temperature 97 [degF] Dr. Callie Henriquez Work Phone: [facility] 05-09-2022 09:53-0500 Body weight 81.[address] Callie Henriquez Work Phone: [facility] 05-09-2022 09:53-0500 Diastolic blood pressure 84 mm[Hg] Dr. Callie Henriquez Work Phone: [facility] 05-09-2022 09:53-0500 Heart rate 70 /min Dr. Callie Henriquez Work Phone: [facility] 05-09-2022 09:53-0500 Respiratory rate 16 /min Dr. Callie Henriquez Work Phone: [facility] 05-09-2022 09:53-0500 SaO2% (BldA) [Mass fraction] 98 % Dr. Callie Henriquez Work Phone: [facility] 05-09-2022 09:53-0500 Systolic blood pressure 143 mm[Hg] Dr. Callie Henriquez Work Phone: [facility] 02-12-2021 15:48-0500 Diastolic blood pressure 99 mm[Hg] JAYANT Cali MD Work Phone: [facility] 02-12-2021 15:48-0500 Heart rate 78 /min JAYANT Cali MD Work Phone: [facility] 02-12-2021 15:48-0500 Systolic blood pressure 146 mm[Hg] JAYANT Cali MD Work Phone: [facility] 02-12-2021 15:16-0500 Body temperature 98.6 [degF] JAYANT Cali MD Work Phone: [facility] 02-12-2021 15:16-0500 Respiratory rate 16 /min JAYANT Cali MD Work Phone: [facility] 02-12-2021 15:16-0500 SaO2% (BldA) [Mass fraction] 99 % JAYANT Cali MD Work Phone: [facility] 02-10-2021 12:30-0500 Body mass index (BMI) [Ratio] 25.86 kg/m2 JAYANT Cali MD Work Phone: [facility] 02-10-2021 12:30-0500 Body weight 88.9 kg JAYANT Cali MD Work Phone: [facility] 02-10-2021 11:10-0500 Body height 185.4 cm JAYANT Cali MD Work Phone: [facility] Encounters Encounter Date Encounter Type Care Provider Facility Start: 11-18-2024 nandini Henriquez Facility :[facility] Start: 10-28-2024 End: 10-28-[address] Callie Henriquez MD -[facility] Work Phone: Start: 10-28-2024 End: 10-28-[address] Callie Henriquez MD Work Phone: [facility] Start: 04-29-2024 End: 04-29-2024 ambulatory Callie Henriquez Facility:[facility] Start: 05-18-2022 Non-patient / Non-visit Dr. Marta Henriquez Work Phone: [facility] Start: 05-18-2022 End: 05-18-[address] Callie Henriquez Work Phone: [facility] Work Phone: Start: 05-18-2022 End: 05-18-[address] Callie Henriquez Work Phone: [facility] Start: 05-13-2022 End: 05-13-[address] Callie Henriquez Work Phone: [facility]Laboratory Start: 05-09-2022 End: 05-09-[address] Callie Henriquez Work Phone: [facility] Start: 02-17-2022 End: 02-17-[address] Callie Henriquez Work Phone: [facility] Start: 02-09-2021 End: 02-12-2021 Evaluation and management of inpatient J Violet Cali MD Work Phone: [facility] Comment on above: Cerebrovascular acci dent (CVA), unspecified mechanism (HCC) (Primary Dx) Procedures Date Procedure Procedure Detail Performing Clinician Start: 02-17-2022 CT of head with contrast Dr. Callie Henriquez Work Phone: Start: 02-12-2021 COVID-19 Yazid R Hu ssein DO Start: 02-12-2021 Basic metabolic pane l calcium total Yazid R Balaji DO Start: 02-11-2021 Mri brain brain stem w/o w/contrast material Harris K. Theresa [employer] Work Phone: Start: 02-11-2021 Duplex scan extracra nial art compl bi study Afia Nielson MD Work Phone: Start: 02-11-2021 Basic metabolic pane l calcium total Yazid R Balaji DO Start: 02-10-2021 Echo tthrc r-t 2d w/wom-mode compl spec&colr d Harris Grimaldo Theresa [employer] Work Phone: Start: 02-10-2021 Hemoglobin glycosyla pamela a1c Afia Nielson MD Work Phone: Start: 02-10-2021 Speech and language therapy regime Masha Lira DO Work Phone: Start: 02-10-2021 Assay of troponin quantitative Harris Grimaldo Theresa [employer] Work Phone: Start: 02-10-2021 Lipid panel Harris Grimaldo Theresa [employer] Work Phone: Start: 02-09-2021 Assay of troponin quantitative Harris Grimaldo Theresa [employer] Work Phone: Start: 02-09-2021 Speech and language therapy regime Harris Grimaldo Theresa [employer] Work Phone: Start: 02-09-2021 Ecg routine ecg w/le ast 12 lds w/i&r J Violet Cali MD Work Phone: Start: 02-09-2021 POC BMP, WHOLE BLOOD J Violet Cali MD Work Phone: Start: 02-09-2021 Blood count complete automated J Violet Cali MD Work Phone: Start: 02-09-2021 Cerebral perfusion a nalys ct w/blood flow&volume J Violet Cali MD Work Phone: Start: 02-09-2021 Ct angiography head w/contrast/noncontrast Iliana Cali MD Work Phone: Plan of Treatment Date Care Activity Detail Author Start: 02-12-2024 Diabetes screen Diabetes screen [facility] Start: 02-12-2022 Creatinine measurement Creatinine mo nitoring [facility] Start: 02-12-2022 Potassium monitoring Potassium monit oring [facility] Start: 02-10-2022 Lipid panel Lipid screen [facility] Start: 02-17-2021 End: 02-17-2021 Patient encounter procedure 02/17/2021 Office Visit Neurology Kayla Aragon, SHANIA - [employer] [address] [place] [address] [facility] Neurology Joaquin Start: 02-09-2021 Annual Wellness Visi t (AWV) Annual Wellness Visit (AWV) [facility] Start: 12-02-2020 Influenza vaccination Flu vaccine (# 1) [facility] Start: 08-14-2019 Screening for malign ant neoplasm of lung Low dose CT lung screening [facility] Start: 08-14-2019 Shingles Vaccine (1 of 2) Shingles Vaccine (1 of 2) [facility] Start: 2014 Screening for malign ant neoplasm of colon Colon cancer screen colonoscopy [facility] Start: 1988 DTaP/Tdap/Td vaccine (1 - Tdap) DTaP/Tdap/Td vaccine (1 - Tdap) [facility] Start: 1984 HIV screening HIV screen [facility] Start: 1981 COVID-19 Vaccine (1) COVID-19 Vaccin e (1) [facility] Start: 08-14-1975 Pneumococcal 0-64 ye ars Vaccine (1 of 2 - PPSV23) Pneumococcal 0-64 years Vaccine (1 of 2 - PPSV23) [facility] Start: 1969 Hepatitis C screening Hepatitis C sc reen [facility] Basic metabolic 2000 panel - Serum or Plasma Basic Metabolic Panel Lab Routine Daily until discontinued starting 02/11/2021, 2 completed [facility] Work Phone: Comment on above: Daily until disconti nued starting 02/11/2021, 2 completed End: 02-09-2021 BMP Stroke Only BMP Stroke Only Point of Care Testing STAT One Time for 1 Occurrences starting 02/09/2021 until 02/09/2021 [facility] Work Phone: Comment on above: One Time for 1 Occur rences starting 02/09/2021 until 02/09/2021 CBC W Auto Different ial panel - Blood CBC Auto Differential Lab Routine Daily until discontinued starting 02/11/2021, 2 completed [facility] Work Phone: Comment on above: Daily until disconti nued starting 02/11/2021, 2 completed End: 02-09-2021 EKG 12 lead if not done in the ED EKG 12 lead if not done in the ED ECG Routine One Time for 1 Occurrences starting 02/09/2021 until 02/09/2021 [facility] Work Phone: Comment on above: One Time for 1 Occur rences starting 02/09/2021 until 02/09/2021 Oxygen therapy [Mini mum Data Set] Initiate Oxygen Therapy Protocol Respiratory Care Routine Daily until discontinued starting 02/09/2021 [facility] Work Phone: Comment on above: Daily until disconti nued starting 02/09/2021 Oxygen therapy [Mini mum Data Set] Initiate Oxygen Therapy Protocol Respiratory Care Routine Daily until discontinued starting 02/09/2021 [facility] Work Phone: Comment on above: Daily until disconti nued starting 02/09/2021 Carotid arteries [facility] [facility] Payers Date Payer Category Payer Self-pay [id number] 2024 Unknown [id number] 2020 Medicare [id number] Unknown [id number] Unknown [id number] Unknown [id number] Social History Date Type Detail Facility Start: 02-09-2021 End: 05-08-2023 Tobacco smoking status NHIS Smokes tobacco daily [facility] Work Phone: History of tobacco use Cigarette Smoker [employer] Work Phone: Start: 02-09-2021 Cigarettes smoked current (pack per day) - Reported [facility] [employer] Work Phone: Start: 02-09-2021 Tobacco use and exposure Smokeless tobacco non-user [facility] Work Phone: Start: 02-10-2021 Alcohol intake Ex-drinker (finding) [facility] Work Phone: Start: 1970 Sex Assigned At Not on file [facility] [employer] Work Phone: Exposure to SARS-CoV -2 (event) Not sure [facility] Start: 05-09-2022 Tobacco smoking stat us [facility] Unknown if ever smoked [facility] Start: 1970 Sex Assigned At Male W [facility] Discharge summary note 02-12-2021 Note Date & Type Note Facility 02-12-2021 Note [facility] Medicine [facility] Summary Joselito Garrett : 1970 Admit date: 02/09/2021 Discharge date: 02/12/2021 Admitting Physician: Afia Nielson MD Primary Care Physician: No primary care provider on file. Discharge Diagnoses: acute CVA- noted on CT H. Has right upper and lower ext weakness and expressive aphasia Right carotid stenosis- 100% HTN KIM Chief Complaint Patient presents with ? Extremity Weakness right sided weakness. [facility] Monday Hospital Course: \ Joselito is a 50 y.o. male with past medical history below who presents for right sided weakness and speech difficulty. Patient sent in by family for weakness. Family states patient last seen well on Monday. Patient states his weakness has been going on for months. Patient is a poor historian and seems to be having difficulty understanding questions. I am not sure if this is his baseline or a result of his stroke. 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 Patient is unsure if he takes his medications everyday or uses a cpap. His only complaint at this time is a headache. 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 Patient also has prior history of stroke. Denies chest pain, sob, abdominal pain, nausea, vomiting, diarrhea, constipation, fevers, or chills. Will admit for further evaluation and management Found to have acute infarct on MRI. Neurology recommended. DAPT x 3months then asa alone PT recommended acute rehab Declined acute rehab Exam on discharge: BP (!) 156/110 Pulse 90 Temp 98.6 ?F (37 ?C) (Temporal) Resp 18 Ht 6' 1 (1.854 m) Wt 195 lb 15.8 oz (88.9 kg) SpO2 99% BMI 25.86 kg/m? General appearance: No apparent distress, appears stated age and cooperative. HEENT: Pupils equal, round, and reactive to light. Conjunctivae/corneas clear. Neck: Supple, with full range of motion. No jugular venous distention. Trachea midline. Respiratory: Normal respiratory effort. Clear to auscultation, bilaterally without Rales/Wheezes/Rhonchi. Cardiovascular: Regular rate and rhythm with normal S1/S2 without murmurs, rubs or gallops. Abdomen: Soft, non-tender, non-distended with normal bowel sounds. Musculoskeletal: No clubbing, cyanosis or edema bilaterally. Full range of motion without deformity. Skin: Skin color, texture, turgor normal. No rashes or lesions. Neuro: Right upper ext strength 4/5, RLE 4/5, able to walk on his own without help. Nl Comprehension, Alert,awake and oriented. NL CN. Symetrical tone and reflexes. Mild dysarthria Psychiatric: Alert and oriented, thought content appropriate, normal insight Capillary Refill: Brisk,< 3 seconds Peripheral Pulses: +2 palpable, equal bilaterally Patient was seen by the following consultants Consults: IP CONSULT TO STROKE TEAM IP CONSULT TO NEUROLOGY IP CONSULT TO CASE MANAGEMENT IP CONSULT TO VASCULAR SURGERY Significant Diagnostic Studies: Refer to chart Please refer to chart if no studies are shown here ECHO Complete 2D W Doppler W Color Result Date: 02/10/2021 TRANSTHORACIC ECHOCARDIOGRAM PATIENT: Joselito Garrett STUDY DATE: 02/10/2021 [facility]#: [id number] : 1970 AGE: 50 HT/WT: 185.4 cm (73 88.5 kg (194.6 in) lb) GENDER: M BP: 165 / 104 LOCATION: [facility] PATIENT Inpatient main STATUS: *ORDERING PHYSICIAN: * aHyley, *FELLOW: * Jelani Anderson MD *READING PHYSICIAN: * Pavan *CIVIL TRANSPORTATION ENGINEER: * Ruchi Maria MD RD, AE INDICATIO NS: Stroke. CONCLUSIONS SUMMARY: 1. Atrial septum: Color Doppler shows no shunt. There is no evidence of right to left shunting with injection of agitated saline contrast. 2. Left ventricle: Average LV global longitudinal strain is -21. The cavity size is normal. Wall thickness is normal. Systolic function is normal by visual assessment. The estimated ejection fraction is 70%. There are no regional wall motion abnormalities. 3. Right ventricle: The cavity size is normal. Systolic function is normal. Right ventricular systolic pressure is within the normal range. 4. Aortic valve: Structurally normal valve. Trileaflet. There is no stenosis. There is mild, 1+ regurgitation directed centrally in the LVOT. 5. Aorta: The aorta is moderately dilated. The aortic root diameter is 4.5 cm. The ascending aorta internal dimension in the A-P direction, maximal systolic dimension is 4.2 cm. 6. No source of embolism is identified. RECOMMENDATIONS: Annual US follow up for dilated aorta, or alternative imaging modality as clinically indicated STUDY DATA: Complete transthoracic echocardiogram. Procedure: Image quality was (more content not included)... [facility] History of Present illness Narrative 02-12-2021 Ramonita Harmon, METAL HANGER - 02/12/2021 2:24 PM Gay Lira, DO - 02/12/2021 1:47 PM Gay Mendoza, PARAPROFESSIONAL AIDE - 02/11/2021 2:58 PM Keyon Magallanes, PT - 02/11/2021 2:10 PM EST Note Date & Type Note Facility 02-12-2021 History of Present illness Narrative Speech Language Pathology Facility/Department: [address] Dysphagia Treatment Note NAME: Joselito Garrett : 1970 Patient Diagnosis(es): Patient Active Problem List Diagnosis Cerebrovascular accident (CVA) (HCC) Essential hypertension KIM on CPAP Electrocution, accidental Tobacco use Allergies: Allergies Allergen Reactions Bee Venom Anaphylaxis Penicillins Anaphylaxis Sulfa Antibiotics Anaphylaxis Onset Date: 02/09/2021 Oxygen Level: Room Air Current Diet Level: Regular diet with thin liquids Pain:Being managed by RN. S: Patient seen for dysphagia treatment seated upright in bed; patient alert, cooperative, and in pleasant mood. Noted improvement in verbal communication this date. O: Assess diet tolerance A: Patient accepted trials of thin liquids via small bore straw this date. Patient accepted multiple trials and did not reveal any cough, throat clear, or altered vocal quality across all trials/swallows during this session. Patient denies any difficulties with foods and denies any further concerns for swallow function/safety at this time. [x] Goal met [] Progressing as expected [] Progressing slower than expected [] Medical status inhibits participation [] Goals not addressed this session [] Goals revised this session [] Unable to show any progress towards functional goals [] Progress towards functional goal is gradual / fair P: Recommend patient resume current orders for a regular diet with thin liquids. No further clinical concerns for oropharyngeal dysphagia at this time; METAL HANGER will sign off dysphagia plan of care. Patient with improved verbal expression this date, but continues to present with anomia in conversations. Patient has additionally revealed difficulty with memory/attention in therapy sessions; recommend patient resume speech therapy services at next level of care to continue targeting cognitive/communication impairments. METAL HANGER will follow with same if patient remains in hospital. Time In: 1345 Total Session Time: 15 minutes A KN95 mask, goggles, and gloves were worn throughout this session. Neurology Progress Note Patient: Joselito Garrett Unit/Bed:3349/737080 Date of : 1970 Acct: [id number] Admit date: 02/09/2021 Chief Complaint Patient presents with Extremity Weakness right sided weakness. [facility] Monday Patient Seen, Chart, Physician notes, Labs, Radiology studies reviewed. Subjective: The patient feels he is doing well, with minimal symptoms, in his opinion. He is aware of vague difficulty looking to the right, but denies diplopia or a field cut. Admits to some word-finding difficulty and aphasia. Past, Family, Social History unchanged from admission. Diet: ADULT DIET; Regular; Low Fat/Low Chol/High Fiber/2 gm Na Medications: Scheduled Meds: amLODIPine 5 mg Oral Daily LORazepam 1 mg IntraVENous Once atorvastatin 80 mg Oral Nightly clopidogrel 75 mg Oral Daily sodium chloride flush 5-40 mL IntraVENous 2 times per day aspirin 81 mg Oral Daily Or aspirin 300 mg Rectal Daily enoxaparin 40 mg SubCUTAneous Daily Continuous Infusions: sodium chloride sodium chloride 50 mL/hr at 02/10/21 2126 sodium chloride PRN Meds:labetalol, sodium chloride flush, sodium chloride, ondansetron, labetalol, perflutren lipid microspheres, sodium chloride flush Objective: Vitals: BP (!) 156/110 Pulse 90 Temp 98.6 F (37 C) (Temporal) Resp 18 Ht 6' 1 (1.854 m) Wt 195 lb 15.8 oz (88.9 kg) SpO2 99% BMI 25.86 kg/m Physical Exam: Alert and attentive. Significant word-finding difficulties. PERRL. EOMI. Decreased sensation to light touch on the face and RUE. Strength MRC grade 4 range. Able to walk steadily; tends to hold RUE in flexion. 24 hour intake/output: Intake/Output Summary (Last 24 hours) at 02/12/2021 1347 Last data filed at 02/12/2021 0624 Gross per 24 hour Intake 240 ml Output Net 240 ml Last 3 weights: Wt Readings from Last 3 Encounters: 02/10/21 195 lb 15.8 oz (88.9 kg) CBC: Recent Labs 02/10/21 1333 02/11/21 0011 02/12/21 0416 WBC 10.2 11.8* 10.6 HGB 14.6 14.0 14.5 PLT 286 283 283 BMP: Recent Labs 02/10/21 1155 02/11/21 0011 02/12/21 0416 NA 139 137 137 K 4.9 3.8 3.7 CL 113* 108* 108* CO2 16* 22 22 BUN 14 13 11 CREATININE 0.62 0.60 0.67 GLUCOSE 117* 97 101* Calcium: Recent Labs 02/12/21 0416 CALCIUM 8.7 Magnesium:No results for input(s): MG in the last 72 hours. Glucose:No results for input(s): POCGLU in the last 72 hours. HgbA1C: Recent Labs 02/11/21 001 LABA1C 5.2 Lipids: Recent Labs 02/10/21 1155 CHOL 235* TRIG 160* HDL 38* Radiology MRI brain images reviewed. For some reason there is still no radiology reading on this, but there is clearly a fairly large, left, [employer]ITE WORK CLE[employer]ER territory stroke. 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 Risk factors of untreated hypertension and hyperlipidemia, as well as smoking. Plan: Continue Lipitor, which I increased yesterday for his LDL of 165. Agree with starting an antihypertensive, to be gradually increased as tolerated aiming for tight control. Stop smoking- discussed again. Aspirin plus Plavix for 3 month, then single antiplatelet Tx thereafter. I tried to really emphasize the importance of all these medications. Neurology signing off, but please let us know if there are other questions or concerns. Neurology Occupational Therapy Facility/Department: [address] Daily Treatment Note NAME: Joselito Garrett : 1970 Date of Service: 02/11/2021 Discharge Recommendations: IP Rehab Assessment Assessment: Progressing toward goals. Mildly impulsive, limited insight to deficits. Concerned about getting home to his cat, becomes emotional at end of session but appears to understand need for further therapies. REQUIRES OT FOLLOW UP: Yes Safety Devices Type of devices: (left seated EOB, call light in reach. No alarms engaged (as it was upon my entry)) Subjective Subjective: Pt amb to bathroom, IV plugged into wall; pt seems unaware of space constraints, becomes annoyed when redirected, cued to avoid tangling in lines. Girlfriend present. Pt agreeable to OT. Vital Signs Patient Currently in Pain: No Objective ADL Grooming: Contact guard assistance (wash hands at sink) LE Dressing: Minimal assistance (for standing portion) Toileting: Minimal assistance Balance Sitting Balance: Supervision Functional Mobility Functional Mobility Comments: Funct amb to/from bathroom with min assist, cues for environmental negotiation/management of IV pole. Toilet Transfers Equipment Used: Raised toilet seat with rails Toilet Transfer: Minimal assistance Transfers Sit to stand: Contact guard assistance Stand to sit: Minimal assistance Type of ROM/Therapeutic Exercise Comment: AROM RUE, 8 reps x 4 exer. Cues for visual monitoring. Educated re: opposition, focus on slow and controlled movements. Fair carryover. Plan Plan Comment: Cont OT per POC AM-PAC Score AM-PAC Inpatient Daily Activity Raw Score: 16 (02/11/211511) AM-PAC Inpatient ADL T-Scale Score : 35.96 (02/11/211511) ADL Inpatient CMS 0-100% Score: 53.32 (02/11/211511) ADL Inpatient CMS G-Code Modifier : CK (02/11/211511) Goals Short term goal 1: LE dressing with mod indep after set up --PROGRESSING Short term goal 2: Toileting including trasnfers with mod indep --PROGRESSING Short term goal 3: Functional mobility during ADLs with mod indep--PROGRESSING Short term goal 4: Complete 2 sets of 10 reps of resistive exercise on each joint of right UE with mod indep --PROGRESSING Short term goal 5: Grooming FMC aspects with right UE and mod indep --PROGRESSING Therapy Time Individual Concurrent Group Co-treatment Time In 1434 Time Out 1458 Minutes 24 Timed Code Treatment Minutes: 24 Minutes (Funct--1; Ther Ex--1) ANNEMARIE Juan Physical Therapy Facility/Department: [address] Daily Treatment Note NAME: Joselito Garrett : 1970 Date of Service: 02/11/2021 Discharge Recommendations: IP Rehab Assessment Body structures, Functions, Activity limitations: Decreased functional mobility ; Decreased ADL status; Decreased strength; Decreased safe awareness; Decreased vision/visual deficit; Decreased balance Assessment: pt min to mod assist for ambulation. impulsive. high fall risk. several LOB while ambulating. recommend rehab upon disch. REQUIRES PT FOLLOW UP: Yes Patient Diagnosis(es): The encounter diagnosis was Cerebrovascular accident (CVA), unspecified mechanism (HCC). has no past medical history on file. has no past surgical history on file. Restrictions Restrictions/Precautions Restrictions/Precautions: Fall Risk Required Braces or Orthoses?: No Subjective General Chart Reviewed: Yes Family / Caregiver Present: No Subjective Subjective: pt in bed. agreeable to PT. expressive aphasia. Pain Screening Patient Currently in Pain: Denies Orientation Orientation Orientation Level: Oriented to person Cognition Objective Bed mobility Supine to Sit: Stand by assistance Sit to Supine: Stand by assistance Scooting: Stand by assistance Comment: HOB elevated, impulsive Transfers Sit to Stand: Contact guard assistance Stand to sit: Stand by assistance Ambulation Ambulation?: Yes WB Status: No restriction More Ambulation?: Yes Ambulation 1 Surface: level tile Device: No Device Assistance: Minimal assistance; Moderate assistance Quality of Gait: impaired coordination of RLE, decreased sensation - stomping on the ground, tends to lean to the right, veers to R while ambulating. Gait Deviations: Slow Tata; Decreased step length; Decreased step height Distance: 50ft times 3 reps Ambulation 2 Surface - 2: level tile Device 2: No device Quality of Gait 2: impaired coordination of RLE, decreased sensation - stomping on the ground, tends to lean to the right, veers to R while ambulating. Distance: 50ft times 4 reps Stairs/Curb Stairs?: Yes Stairs # Steps : 4 Stairs Height: 6 Device: No Device Assistance: Minimal assistance; Moderate assistance Comment: impulsive Balance Sitting - Static: Good; - Standing - Static: Fair; - Standing - Dynamic: Fair; - Comments: impulsive. several LOB while walking - mod assist to correct. overall min assist to ambulate. AM-PAC Score AM-PAC Inpatient Mobility Raw Score : 16 (02/11/21 [facility]) AM-PAC Inpatient T-Scale Score : 40.78 (02/11/21 [facility]) Mobility Inpatient CMS 0-100% Score: 54.16 (02/11/21 [facility]) Mobility Inpatient CMS G-Code Modifier : CK (02/11/211354) Goals Short term goals Time Frame for Short term goals: 2 weeks Short term goal 1: bed mobility modified independent - not met Short term goal 2: transfers modified independent - not met Short term goal 3: ambulate 150 ft with device, supervision - not met Patient Goals Patient goals : To go home. Plan Plan Times per week: 5x/wk Plan weeks: 2 Current Treatment Recommendations: Strengthening, Transfer Training, Balance Training, Gait Training, Functional Mobility Training, Neuromuscular Re-education, Safety Education & Training, Patient/Caregiver Education & Training, Equipment Evaluation, Education, & procurement, Home Exercise Program, Stair training, ADL/Self-care Training Safety Devices Type of devices: Gait belt, Left in bed, Patient at risk for falls Restraints Initially in place: No Therapy Time Individual Concurrent Group Co-treatment Time In 1335 Time Out 1353 Minutes 18 Timed Code Treatment Minutes: (gait) This physical therapist wore mask, eyewear & gloves during therapy session. Vero Magallanes PT, DPT Physician Progress Note 02/11/2021 12:30 PM Name: Joselito Garrett IP Day: 2 Admit Date: 02/09/2021 1:01 PM PCP: No primary care provider on file. Code Status: Full Code Assessment and Plan: Active Problems/ diagnosis: Possible aubacute CVA- noted on CT H. Has right upper and lower ext weakness and expressive aphasia Right carotid stenosis- 100% HTN KIM Plan: 1. Resume asa, statin, tele, PT/OT. Neuro checks, neuro eval is appreciated 2. Start Norvasc, monitor BP. 3. MRI brain pending, carotid ultrasound pending. 4. Vascular surgery evaluated for right ICA stenosis, chronic no intervention needed. Resume statin and antiplatelet. 5. Discussed plan with patient and RN 6. Resume home meds as appropriate 7. DVT PPx dispo- possible inpatient rehab. After 7 pm, please contact [facility] Hospitalist director content marketing if needed Subjective: no new events. No new symptoms. Physical Examination: Vitals: BP (!) 150/92 Pulse 66 Temp 98.9 F (37.2 C) (Temporal) Resp 17 Ht 6' 1 (1.854 m) Wt 195 lb 15.8 oz (88.9 kg) SpO2 97% BMI 25.86 kg/m Temp (24hrs), Av.7 F (37.1 C), Min:98.2 F (36.8 C), Max:99 F (37.2 C) General appearance: alert, cooperative and no distress Mental Status: oriented to person, place and time and normal affect Lungs: clear to auscultation bilaterally, normal effort Heart: regular rate and rhythm, no murmur Abdomen: soft, nontender, nondistended, bowel sounds present, no masses Extremities: no edema, redness, tenderness in the calves Skin: no gross lesions, rashes Neuro-some expressive aphasia, AOx3, LUE/LLE 4/5 strength, RUE.RLE 5/5. Sensation decreased on the right arm compared to left, sensation intact otherwise Data: Labs: Recent Labs 02/10/21 1333 02/11/21 0011 WBC 10.2 11.8* HGB 14.6 14.0 PLT 286 283 Recent Labs 02/10/21 1155 02/11/21 0011 NA 139 137 K 4.9 3.8 CL 113* 108* CO2 16* 22 BUN 14 13 CREATININE 0.62 0.60 GLUCOSE 117* 97 Recent Labs 02/10/21 1155 AST 51* ALT 44 BILITOT 1.1 ALKPHOS 66 Current Facility-Administered Medications Medication Dose Route Frequency Provider Last Rate Last Admin clopidogrel (PLAVIX) tablet 75 mg 75 mg Oral Daily Masha Lira DO 75 mg at 02/11/21 1021 0.9 % sodium chloride infusion IntraVENous Continuous Iliana Cali MD labetalol (NORMODYNE;TRANDATE) injection 10 mg 10 mg IntraVENous Q10 Min PRN Iliana Cali MD 0.9 % sodium chloride infusion IntraVENous Continuous Harris SHANIA Echavarria CNP 50 mL/hr at 02/10/212125 New Bag at 02/10/212125 sodium chloride flush 0.9 % injection 5-40 mL 5-40 mL IntraVENous 2 times per day Harris SHANIA Echavarria CNP 10 mL at 02/11/21 1023 sodium chloride flush 0.9 % injection 5-40 mL 5-40 mL IntraVENous PRN HarrisSHANIA Foss CNP 0.9 % sodium chloride infusion 25 mL IntraVENous PRN HarrisSHANIA Foss CNP ondansetron (ZOFRAN) injection 4 mg 4 mg IntraVENous Q6H PRN SHANIA Hodgson CNP aspirin EC tablet 81 mg 81 mg Oral Daily SHANIA Hodgson CNP 81 mg at 02/11/21 1021 Or aspirin suppository 300 mg 300 mg Rectal Daily SHANIA Hodgson CNP atorvastatin (LIPITOR) tablet 40 mg 40 mg Oral Nightly Harris SHANIA Echavarria [employer] 40 mg at 02/10/212024 labetalol (NORMODYNE;TRANDATE) injection 10 mg 10 mg IntraVENous Q10 Min PRN SHANIA Hodgson CNP enoxaparin (LOVENOX) injection 40 mg 40 mg SubCUTAneous Daily SHANIA Hodgson CNP 40 mg at 02/11/21 1019 perflutren lipid microspheres (DEFINITY) injection 1.65 mg 1.5 mL IntraVENous ONCE PRN SHANIA Hodgson CNP sodium chloride flush 0.9 % injection 5-40 mL 5-40 mL IntraVENous PRN SHANIA Hodgson CNP Additional work up or/and treatment plan may be added today or then after based on clinical progression. I am managing a portion of pt care. Some medical issues are handled by other specialists. Additional work up and treatment should be done in out pt setting by pt PCP and other out pt providers. In addition to examining and evaluating pt, I spent additional time explaining care, normaland abnormal findings, and treatment plan. All of pt questions were answered. Counseling, diet and education were provided. Case will be discussed with nursing staff when appropriate. Family will be updated if and when appropriate. Speech Language Pathology Facility/Department: [address] Initial Speech/Language Assessment NAME: Joselito Garrett : 1970 ADMISSION DATE: 02/09/2021 ADMITTING DIAGNOSIS: has Cerebrovascular accident (CVA) due to vascular occlusion (HCC); Essential hypertension; KIM on CPAP; Electrocution, accidental; and Tobacco use on their problem list. DATE ONSET: 02/09/2021 Date of Eval: 02/11/2021 Evaluating Therapist: HORACIO Crowell RECENT RESULTS CT OF HEAD/MRI: IMPRESSION: 1. 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 2. Generally small caliber vertebrobasilar arterial system without evidence of distal occlusion. 2. Patent distal left internal carotid, and bilateral anterior and middle cerebral arteries. Dictated: 02/09/2021 2:12 pm Primary Complaint: Aphasia Pain: Pain Assessment Pain Assessment: 0-10 Pain Level: 0 Patient's Stated Pain Goal: No pain Assessment: Diagnosis: Patient presents with [id number] expressive aphasia, primarily characterized by anomia and empty speech at a conversational-level. Patient revealed relative strength with receptive language skills and does not present with any concerns for cognitive deficits/motor speech impairments at this time. Patient appeared to benefit from verbal/semantic cues. METAL HANGER will initiate a language plan of care and continue to follow. Patient's performance both expressively and receptively initially impacted by reports of double vision. At completion of session, patient reported he felt he was no longer seeing double. May be appropriate to reassess use of visual cues/aids in upcoming treatment sessions if vision remains stable. Recommendations: Requires METAL HANGER Intervention: Yes Duration/Frequency of Treatment: 3x/week for 2 weeks Plan: Goals: Short-term Goals Timeframe for Short-term Goals: 2 weeks Goal 1: Patient will complete intraverbal fill-ins with 80% accuracy. Goal 2: Patient will name objects in functional/everyday environment with 80% accuracy. Goal 3: Patient will utilize circumlocution/semantic feature-cueing in conversations with minimal cueing in 4/5 opportunities. Patient/family involved in developing goals and treatment plan: Subjective: Previous level of function and limitations: General Chart Reviewed: Yes Family / Caregiver Present: No Subjective Subjective: Patient seen for speech/language evaluation seated upright in bed. Patient expresses he feels his communication has slightly improved from previous date. Social/Functional History Lives With: Alone Type of Home: House Home Layout: Multi-level; Able to Live on Main level with bedroom/bathroom Home Access: Level entry Bathroom Shower/Tub: Tub/Shower unit Objective: Oral/Motor Oral Motor: Within functional limits Motor Speech Motor Speech: Within Functional Limits Quick Aphasia Battery: Orientation: 4/4 1-Step Commands: 4/4 2-Step Commands: 3/3 Connected Speech: reduced length/complexity of utterances, anomia/empty speech, able to produce syntactically complete sentences despite same. Word Comprehension: 8 Yes/No Comprehension: 12/13 (complex yes/no missed) Picture Namin/6 Repetition: 6/6 Oral Readin/6 Writing: could produce digits 1-8, unable to produce signature Automatics: / Intraverbal fill-ins/semantic cues: /8 Prognosis: Speech Therapy Prognosis Prognosis: Good Individuals consulted Consulted and agree with results and recommendations: Patient; RN Education: Safety Devices in place: Yes Type of devices: Call light within reach; Nurse notified Therapy Time: Individual Concurrent Group Co-treatment Time In 939 Time Out 1000 Minutes 20 Total Treatment Time: 20 A KN95 mask, goggles, and gloves were worn throughout this session. Ramonita Harmon MS, HERMILO/METAL HANGER 02/11/2021 11:09 AM Speech Language Pathology Facility/Department: [address] Dysphagia Treatment Note NAME: Joselito CHANEY: 1970 Patient Diagnosis(es): Patient Active Problem List Diagnosis Cerebrovascular accident (CVA) due to vascular occlusion (HCC) Essential hypertension KMI on CPAP Electrocution, accidental Tobacco use Allergies: Allergies Allergen Reactions Bee Venom Anaphylaxis Penicillins Anaphylaxis Sulfa Antibiotics Anaphylaxis Onset Date: 02/09/2021 Oxygen Level: O2 Device: None (Room air) Current Diet Level: Regular diet with mildly-thick liquids Compensatory Techniques -Position upright -Small bites/sips Pain:Being managed by RN. S: Patient seen for dysphagia treatment seated upright in bed; unfinished breakfast tray present at bedside. Patient alert and cooperative throughout session. O: Assess diet tolerance/upgrade trials A: Patient accepted trials of mildly-thick liquids; overall functional oral phase and no clinical s/s concerning for pharyngeal dysphagia across multiple sips/large sips. Patient accepted trials of thin liquids via tsp, cup sip, and small bore straw. Similarly to mildly-thick liquids previous date, patient revealed a delayed throat clear x 1. No further cough, throat clear, or altered/wet vocal quality observed across multiple sips/swallows of thin liquids. [] Goal met [x] Progressing as expected [] Progressing slower than expected [] Medical status inhibits participation [] Goals not addressed this session [] Goals revised this session [] Unable to show any progress towards functional goals [] Progress towards functional goal is gradual / fair P: Recommend patient advance to a regular diet with thin liquids. Recommend continued use of upright positioning and single bites/sips. METAL HANGER will continue to follow short-term to ensure no further dysphagia-related concerns prior to signing off. Time In: 1000 Total Session Time: 10 minutes A KN95 mask, goggles, and gloves were worn throughout this session. Images from the original note were not included. Department of Vascular Surgery - Progress Note PATIENT NAME: Joselito CHANEY: 1970 ATTENDING PHYSICIAN: Afia Nielson MD ADMIT DATE: 02/09/2021 TODAY'S DATE: 02/11/2021 SUBJECTIVE Patient doing ok. He is not having any residual weakness on his R side. Appears grossly coordinated. Still issues with aphasia. He remains hyperreflexive B/L patella DTRs. No new neuro deficits. No fevers/chills. OBJECTIVE VITALS: BP 132/71 Pulse 62 Temp 98.6 F (37 C) (Temporal) Resp 16 Ht 6' 1 (1.854 m) Wt 195 lb 15.8 oz (88.9 kg) SpO2 98% BMI 25.86 kg/m PHYSICAL EXAM: CONSTITUTIONAL: NAD, A&O X2. EYES: No scleral icterus CHEST: Resp effort easy and unlabored ABDOMEN: soft, non-distended, non-tender to palpation, peritoneal signs absent EXTREMITIES: LLE: DP and PT palpable RLE: DP and PT palpable SKIN: Warm and dry INTAKE/OUTPUT: I/O last 3 completed shifts: In: 500 [P.O.:500] Out: - No intake/output data recorded. Data Recent Labs 02/09/21 1351 02/10/21 1333 02/11/21 0011 WBC 10.2 10.2 11.8* HGB 14.7 14.6 14.0 HCT 43.7 43.7 42.0 PLT 299 286 283 Recent Labs 02/09/21 1355 02/10/21 1155 02/11/21 0011 NA 139 139 137 K 3.6 4.9 3.8 CL -- 113* 108* CO2 -- 16* 22 BUN -- 14 13 CREATININE 0.80 0.62 0.60 GLUCOSE -- 117* 97 Recent Labs 02/10/21 1155 AST 51* ALT 44 BILITOT 1.1 ALKPHOS 66 Current Inpatient Medications Current Facility-Administered Medications: clopidogrel (PLAVIX) tablet 75 mg, 75 mg, Oral, Daily 0.9 % sodium chloride infusion, , IntraVENous, Continuous labetalol (NORMODYNE;TRANDATE) injection 10 mg, 10 mg, IntraVENous, Q10 Min PRN 0.9 % sodium chloride infusion, , IntraVENous, Continuous sodium chloride flush 0.9 % injection 5-40 mL, 5-40 mL, IntraVENous, 2 times per day sodium chloride flush 0.9 % injection 5-40 mL, 5-40 mL, IntraVENous, PRN 0.9 % sodium chloride infusion, 25 mL, IntraVENous, PRN ondansetron (ZOFRAN) injection 4 mg, 4 mg, IntraVENous, Q6H PRN aspirin EC tablet 81 mg, 81 mg, Oral, Daily OR aspirin suppository 300 mg, 300 mg, Rectal, Daily atorvastatin (LIPITOR) tablet 40 mg, 40 mg, Oral, Nightly labetalol (NORMODYNE;TRANDATE) injection 10 mg, 10 mg, IntraVENous, Q10 Min PRN enoxaparin (LOVENOX) injection 40 mg, 40 mg, SubCUTAneous, Daily perflutren lipid microspheres (DEFINITY) injection 1.65 mg, 1.5 mL, IntraVENous, ONCE PRN sodium chloride flush 0.9 % injection 5-40 mL, 5-40 mL, IntraVENous, PRN ASSESSMENT AND PLAN 50 y.o. male s/p left-sided infarct with diplopia and improved R-sided weakness who has a R-sided occluded distal internal carotid found incidentally on CTA Plan: - follow up carotid duplex - continue plavix, statin, ASA per neuro - wDW Dr. Skinny Restrepo MD Vascular PGY1 02/11/2021 7:11 AM Associated attestation - Jesse Babb MD - 02/11/2021 5:44 PM EST Vascular Attending Note: I examined and evaluated the patient and agree with the findings and plan of care as documented in the resident's note Right carotid occlusion by CTA and Duplex is not reconstructible and is not the cause of his right-sided weakness. Recommend that the patient be discharged on dual antiplatelet and statin medication Complete smoking cessation and avoidance of any nicotine was strongly advised. Surveillance carotid duplex in one year Jesse Babb MD, FACS Vascular Surgery Physician Progress Note 02/10/2021 2:00 PM Name: Joselito Garrett Day: 1 Admit Date: 02/09/2021 1:01 PM PCP: No primary care provider on file. Code Status: Full Code Assessment and Plan: Active Problems/ diagnosis: Possible aubacute CVA- noted on CT H. Has right upper and lower ext weakness and expressive aphasia Right carotid stenosis- 100% HTN KIM Plan: Resume asa, statin, tele, PT/OT. Neuro checks, neuro eval MRI brain pending Vascular surgery eval for ZAMZAM given ipsilateral symptoms Discussed plan with patient and RN Resume home meds as appropriate DVT PPx dispo- home pending neuro assessment After 7 pm, please contact [facility] Hospitalist director content marketing if needed Subjective: no new events. No new symptoms. Physical Examination: Vitals: BP (!) 165/104 Pulse 76 Temp 99 F (37.2 C) (Temporal) Resp 18 Ht 6' 1 (1.854 m) Wt 195 lb 15.8 oz (88.9 kg) SpO2 96% BMI 25.86 kg/m Temp (24hrs), Av.1 F (37.3 C), Min:98.7 F (37.1 C), Max:99.4 F (37.4 C) General appearance: alert, cooperative and no distress Mental Status: oriented to person, place and time and normal affect Lungs: clear to auscultation bilaterally, normal effort Heart: regular rate and rhythm, no murmur Abdomen: soft, nontender, nondistended, bowel sounds present, no masses Extremities: no edema, redness, tenderness in the calves Skin: no gross lesions, rashes Neuro-some expressive aphasia, AOx3, LUE/LLE 4/5 strength, RUE.RLE 5/5. Sensation decreased on the right arm compared to left, sensation intact otherwise Data: Labs: Recent Labs 02/09/21 1351 02/10/21 1333 WBC 10.2 10.2 HGB 14.7 14.6 PLT 299 286 Recent Labs 02/09/21 1355 02/10/21 1155 NA 139 139 K 3.6 4.9 CL -- 113* CO2 -- 16* BUN -- 14 CREATININE 0.80 0.62 GLUCOSE -- 117* Recent Labs 02/10/21 1155 AST 51* ALT 44 BILITOT 1.1 ALKPHOS 66 Current Facility-Administered Medications Medication Dose Route Frequency Provider Last Rate Last Admin [START ON 02/11/2021] clopidogrel (PLAVIX) tablet 75 mg 75 mg Oral Daily Masha Lira, clopidogrel (PLAVIX) tablet 300 mg 300 mg Oral Once Masha Lira DO 0.9 % sodium chloride infusion IntraVENous Continuous Iliana Cali MD labetalol (NORMODYNE;TRANDATE) injection 10 mg 10 mg IntraVENous Q10 Min PRN Iliana Cali MD 0.9 % sodium chloride infusion IntraVENous Continuous Harris SHANIA Echavarria CNP 50 mL/hr at 02/09/212236 New Bag at 02/09/212236 sodium chloride flush 0.9 % injection 5-40 mL 5-40 mL IntraVENous 2 times per day Harris SHANIA Echavarria CNP 10 mL at 02/09/212237 sodium chloride flush 0.9 % injection 5-40 mL 5-40 mL IntraVENous PRN HarrisSHANIA Foss CNP 0.9 % sodium chloride infusion 25 mL IntraVENous PRN HarrisSHANIA Foss CNP ondansetron (ZOFRAN) injection 4 mg 4 mg IntraVENous Q6H PRN SHANIA Hodgson CNP aspirin EC tablet 81 mg 81 mg Oral Daily SHANIA Hodgson CNP 81 mg at 02/10/21 1217 Or aspirin suppository 300 mg 300 mg Rectal Daily Harris SHANIA Echavarria CNP atorvastatin (LIPITOR) tablet 40 mg 40 mg Oral Nightly SHANIA Hodgson CNP labetalol (NORMODYNE;TRANDATE) injection 10 mg 10 mg IntraVENous Q10 Min PRN Harris Cardenas APRN - [facility] enoxaparin (LOVENOX) injection 40 mg 40 mg SubCUTAneous Daily HarrisSHANIA Nguyen CNP 40 mg at 02/10/21 1217 perflutren lipid microspheres (DEFINITY) injection 1.65 mg 1.5 mL IntraVENous ONCE PRN SHANIA Hodgson CNP sodium chloride flush 0.9 % injection 5-40 mL 5-40 mL IntraVENous PRN Harris SHANIA Echavarria CNP Additional work up or/and treatment plan may be added today or then after based on clinical progression. I am managing a portion of pt care. Some medical issues are handled by other specialists. Additional work up and treatment should be done in out pt setting by pt PCP and other out pt providers. In addition to examining and evaluating pt, I spent additional time explaining care, normaland abnormal findings, and treatment plan. All of pt questions were answered. Counseling, diet and education were provided. Case will be discussed with nursing staff when appropriate. Family will be updated if and when appropriate. Comprehensive Nutrition Assessment Type and Reason for Visit: Initial, Patient Education, Consult Nutrition Recommendations/Plan: 1. Continue low fat/cholesterol, high fiber, 2gr Na diet, texture/liquids per METAL HANGER - encourage and monitor efficacy of PO intake. 2. Attached low sodium diet education to AVS given pt's current level of functioning. 3. Monitor need for ONS, pt now on diet but previous NPO. 4. Please record accurate % consumed of meals in flowsheet. 5. Monitor skin, weights, labs, and I&Os. RD to follow up weekly. Nutrition Assessment: Joselito Garrett is a 50 y.o. male that presents to the emergency department for strokelike symptoms. On arrival NIH 5, CTH showing hypodense area of distal MCA and thalamic stroke with infarction. 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 Currently MRI pending, neurochecks , PT/OT, neurology following, echo pending. No weight hx per Epic. Pt denies any appetite or weight changes CHIEF INVESTIGATOR. Reports UBW of 190-195#, bed scale is consistent with UBW. RN providing care at the time of RD visit, also d/t pt cognition and aphasia did not review low sodium guidelines with pt- will attach to AVS and follow up as able. Malnutrition Assessment: Malnutrition Status: At risk for malnutrition - Recent CVA, previous NPO. Context: Acute Illness Estimated Daily Nutrient Needs: Energy (kcal): 5822-8790 (25-30 kcals/kg); Weight Used for Energy Requirements: [place] Protein (g): 84-100g (1.0-1.2g/kg); Weight Used for Protein Requirements: [place] Fluid (ml/day): Per MD; Method Used for Fluid Requirements: 1 ml/kcal Nutrition Related Findings: Ace- 21, +BS, no edema BMP: Recent Labs 02/09/21 1355 NA 139 K 3.6 CREATININE 0.80 HEPATIC: No results for input(s): AST, ALT, ALB, BILITOT, ALKPHOS in the last 72 hours. Wounds: None Current Nutrition Therapies: ADULT DIET; Regular; Low Fat/Low Chol/High Fiber/2 gm Na; Mildly Thick ([place]) Anthropometric Measures: Height: 6' 1 (185.4 cm) Current Body Weight: 195 lb 15.8 oz (88.9 kg) Admission Body Weight: 181 lb (82.1 kg) Usual Body Weight: 193 lb (87.5 kg) [place] Body Weight: 184 lbs; % [place] Body Weight 106.5 % BMI: 25.9 Adjusted Body Weight: ; No Adjustment Adjusted BMI: BMI Categories: Overweight (BMI 25.0-29.9) Nutrition Diagnosis: Potential for inadequate protein-energy intake related to cognitive or neurological impairment as evidenced by recent CVA, modified diet/liquids. Nutrition Interventions: Food and/or Nutrient Delivery: Continue Current Diet Nutrition Education/Counseling: Education needed Coordination of Nutrition Care: Continue to monitor while inpatient Goals: Pt will adhere to diet, consume >75% of meals, ONS Nutrition Monitoring and Evaluation: Behavioral-Environmental Outcomes: None Identified Food/Nutrient Intake Outcomes: Food and Nutrient Intake Physical Signs/Symptoms Outcomes: Biochemical Data, Nutrition Focused Physical Findings, Skin, Weight Discharge Planning: Too soon to determine Contact: *[phone] or [facility] Neurology Progress Note Patient: Joselito Garrett Unit/Bed:3349/275008 Date of : 1970 Acct: [id number] Admit date: 02/09/2021 Chief Complaint Patient presents with Extremity Weakness right sided weakness. LKW Monday Patient Seen, Chart, Physician notes, Labs, Radiology studies reviewed. Subjective: 50 year old who presented a day after onset of right sided weakness and aphasia. Strength on the right is about the same today. Admits to right sided numbness. Also notes some diplopia. Past, Family, Social History unchanged from admission. Diet: Diet NPO Medications: Scheduled Meds: [START ON 02/11/2021] clopidogrel 75 mg Oral Daily clopidogrel 300 mg Oral Once sodium chloride flush 5-40 mL IntraVENous 2 times per day aspirin 81 mg Oral Daily Or aspirin 300 mg Rectal Daily atorvastatin 40 mg Oral Nightly enoxaparin 40 mg SubCUTAneous Daily Continuous Infusions: sodium chloride sodium chloride 50 mL/hr at 02/09/21 2237 sodium chloride PRN Meds:labetalol, sodium chloride flush, sodium chloride, ondansetron, labetalol, perflutren lipid microspheres, sodium chloride flush Home Meds: Only aspirin Objective: Vitals: BP (!) 165/104 Pulse 76 Temp 99 F (37.2 C) (Temporal) Resp 18 Ht 6' 1 (1.854 m) Wt 181 lb 1.6 oz (82.1 kg) SpO2 96% BMI 23.89 kg/m Physical Exam: Alert. Decreased fluency with some word-finding difficulty, but able to name some simple objects. PERRL. Visual mariano full for very gross confrontational testing. EOMI. Occasional horizontal diplopia with end gaze to either side, but this varied. Sensation to light touch on the right face intact, but decreased RUE vs L. Strength MRC grade 4 right except 4+-5 right ankle dorsiflexion. No gross dysmetria. 24 hour intake/output: Intake/Output Summary (Last 24 hours) at 02/10/2021 1213 Last data filed at 02/10/2021 0515 Gross per 24 hour Intake 0 ml Output Net 0 ml Last 3 weights: Wt Readings from Last 3 Encounters: 02/09/21 181 lb 1.6 oz (82.1 kg) CBC: Recent Labs 02/09/21 1351 WBC 10.2 HGB 14.7 PLT 299 BMP: Recent Labs 02/09/21 1355 NA 139 K 3.6 CREATININE 0.80 Radiology reports as per the Radiologist Radiology: CTA HEAD NECK W WO CONTRAST Result Date: 02/09/2021 Patient Name: JOSELITO GARRETT [facility]#: [id number] Computed Tomography ACCESSION EXAM DATE/TIME PROCEDURE ORDERING PROVIDER [id number] 02/09/2021 13:26 EST CTA Head/Neck w/ + w/o UNASSIGNED, UNASSIGNED contrast CPT code 94899 [id number] Reason For Exam (CTA Head/Neck w/ + w/o contrast) Stroke Symptoms Report CLINICAL INFORMATION: Right-sided weakness. Expressive aphasia. Stroke symptoms. Stroke team. CTA brain and neck with intravenous contrast with 3-D reconstructions: Contrast: Isovue-370, 50 mL. (Additional to CT perfusion.) CTA brain: CT angiographic studies of the intracranial vessels were performed following the acquisition of high resolution helical CT data during bolus contrast infusion with axial, coronal and sagittal 2-D reconstructions. The data set was then concurrently post processed on the thereNow workstation by hi with reconstructed 3-D shaded surface angiographic renderings of the arterial intracranial vessels better visualize arterial vascular anatomy. A noncontrast CT head examination was obtained and reported separately. CT angiographic study demonstrates patent flow in the distal left internal carotid and basilar arteries. There is no demonstrable blood flow in the intracranial portion of the distal right internal carotid artery. There is atherosclerotic calcification of the intracavernous portions of both internal carotid arteries arteries with patent blood flow in both, most likely secondary to retrograde blood flow on the right, with mild bilateral stenosis. The right and left anterior and middle cerebral arteries are patent. Neither posterior communicating artery is visualized. There is a widely patent anterior communicating artery. The basilar artery and both posterior cerebral arteries are small in in caliber. Flow is demonstrated in small caliber distal vertebral arteries left slightly larger than right.. There is no evidence of aneurysm or vascular malformation. IMPRESSION: 1. 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 2. Generally small caliber vertebrobasilar arterial system without evidence of distal occlusion. 2. Patent distal left internal carotid, and bilateral anterior and middle cerebral arteries. CTA neck: Volume acquisition CT images of the extracranial vessels were obtained during bolus intravenous contrast administration with axial, coronal and sagittal 2-D reconstructions. The imaging data set was concurrently post processed on the [employer] workstation with 2-D maximum intensity projection (MIP) and multiprojectional 3-D surface shaded reconstructed angiographic images to better visualize gross arterial vascular anatomy. There is patent flow in the right and left common carotid arteries. There is no evidence of arterial dissection. There is a noncalcified atherosclerotic disease at the origin of the left vertebral artery with diminished flow and nonvisualization of the proximal segment of the left vertebral artery. There is reconstitution of flow of the mid and distal left cervical vertebral artery which may be due to retrograde flow. The entire right and remainder of the left cervical vertebral arteries are diffusely diminutive. The findings are most suggestive of a chronic process most likely secondary to atherosclerotic disease particularly without a provided history of trauma. There is no convincing evidence of arterial dissection. The right carotid bifurcation demonstrates atherosclerotic plaque with posterior atherosclerotic calcification. There is approximately 30% stenosis of the bifurcation. There is no visible blebs are in the right cervical internal carotid artery consistent with occlusion, likely chronic. The left carotid bifurcation demonstrates anterior and posterior atherosclerotic plaque with mild luminal stenosis (approximately 10-20% stenosis). There is no ulceration or dissection. There is patent flow in the remainder of the left internal carotid artery. IMPRESSION: 1. 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 2. Diffusely diminutive bilateral cervical vertebral arteries most likely related to chronic atherosclerotic disease although a developmental component is not excluded. There is reconstitution of flow in the distal left vertebral artery secondary to retrograde flow. 3. Atherosclerotic disease of both common carotid artery bifurcations with atherosclerotic calcification, left greater than right. There is approximately 30% stenosis right and 10-20% on the left common carotid artery bifurcation by NASCET criteria 4. Occlusion of the right internal carotid artery (100% stenosis by NASCET criteria) extending through the infraclinoid segment. 5. No evidence of other significant stenosis of the remainder of both common carotid arteries and the cervical left internal carotid artery (0% stenosis of the remainder of the bilateral common and cervical left internal carotid arteries by NASCET criteria. CTR notification: The above findings were communicated to Dr. Graff by me by telephone on 02/09/2021 at approximately 1400 and again at 1450 hours. Computed Tomography Report Report Dictated on --- Final --- Dictated: 02/09/2021 2:12 pm Dictating Physician: MD FRNACIS HARLAN Signed Date and Time: 02/09/2021 3:02 pm Signed by: MD FRANCIS HARLAN Transcribed Date and Time: 02/09/2021 2:12 CT HEAD WO CONTRAST Result Date: 02/09/2021 Patient Name: JOSELITO GARRETT Computed Tomography ACCESSION EXAM DATE/TIME PROCEDURE ORDERING PROVIDER [id number] 02/09/2021 13:[address] Head or Brain w/o UNASSIGNED, UNASSIGNED Contrast CPT code 69854 Reason For Exam (CT Head or Brain w/o Contrast) Stroke Symptoms Report CLINICAL INFORMATION: Right-sided weakness. Expressive aphasia. Stroke symptoms. Stroke team. CT HEAD WITHOUT INTRAVENOUS CONTRAST: Volume acquisition CT images are obtained from foramen magnum to vertex without intravenous contrast with axial, coronal and sagittal 2-D reconstructions. The ventricles and sulci are normal in size and configuration. No intra-axial mass lesion or mass-effect is seen. There is a focal area of hypodensity in the medial mid left temporal lobe and left periatrial white matter extending into the left thalamus compatible with a subacute infarct. Vasogenic edema related to neoplasm is not excluded. There is no evidence of acute intracranial hemorrhage or other focal abnormal intra-axial densities. ASPECTS score: 8/10 IMPRESSION: 1. Hypodensity in the medial aspect of the mid left temporal lobe and left periatrial white matter extending into the left thalamus compatible with a subacute infarct in the distribution of posterior branches of the left middle cerebral artery. Vasogenic edema secondary to neoplasm is not excluded. Correlate with clinical parameters. MRI may be of value in further evaluation. 2. No evidence of other acute or significant intracranial abnormality. CTR notification: The above findings were communicated to Dr. Graff by hi by telephone on 02/09/2021 at approximately 1333 hours. Report Dictated on --- Final --- Dictated: 02/09/2021 1:30 pm Dictating Physician: MD FRANCIS HARLAN Signed Date and Time: 02/09/2021 1:42 pm Signed by: MD FRANCIS HARLAN Transcribed Date and Time: 02/09/2021 1:30 CT BRAIN PERFUSION Result Date: 02/09/2021 Patient Name: JOSELITO GARRETT Computed Tomography ACCESSION EXAM DATE/TIME PROCEDURE ORDERING PROVIDER [id number] 02/09/2021 13:[address] Cerebral Perfusion UNASSIGNED, UNASSIGNED CPT code 0042T Reason For Exam (CT Cerebral Perfusion) Stroke Symptoms Report Interpretation of this examination was delayed by computer systems error. This examination was received by me for interpretation on 02/09/2021 at approximately 1500 hours. CLINICAL INFORMATION: Right-sided weakness. Expressive aphasia. Stroke symptoms. Stroke team. CT perfusion brain imaging: Contrast: Isovue-370, 50 mL.. Dynamic 4-D CT Perfusion study of the whole brain was performed following administration of intravenous contrast. RAPID software color blood flow maps of the brain with quantitative assessment of Tmax, mean transit time, cerebral blood flow and cerebral blood volume was provided. CT perfusion: There is focal decreased perfusion in the medial left temporal lobe and left thalamic region corresponding to the area of hypodensity on the earlier CT head examination. No global or other regional perfusion abnormalities are noted on the Tmax, MTT, CBV, or CBF maps. CT perfusion quantitative findings: Cerebral maps: CBF<30%: 0 ml. Tmax >6 sec: 10 ml. Mismatch volume: 10 ml. IMPRESSION: 1. Focal decreased perfusion in the medial left temporal lobe and left thalamic region corresponding to the area of hypodensity in the anterior liver CT head consistent with a subacute infarct. 2. No global or other regional perfusion deficits. CTR notification: The above findings were communicated to Dr. Graff by me by telephone at the time of dictation on 02/09/2021 at approximately 1305 hours. Computed Tomography Report Report Dictated on --- Final --- Dictated: 02/09/2021 3:03 pm Dictating Physician: MD FRANCIS HARLAN Signed Date and Time: 02/09/2021 3:08 pm Signed by: MD FRANCIS HARLAN Transcribed Date and Time: 02/09/2021 3:03 CT brain images reviewed Assessment: Active Problems: Cerebrovascular accident (CVA) due to vascular occlusion (HCC) Essential hypertension KIM on CPAP Electrocution, accidental Tobacco use Resolved Problems: * No resolved hospital problems. * Left posterior cerebral artery territory stroke, with significant underlying atherosclerosis. Diplopia not expected with this; may have other posterior circulation involvement, possibly due to [id number] emboli. Plan: Plavix load today then aspirin plus Plavix. Dual antiplatelet therapy for 3 months if tolerated, then just Plavix or aspirin therafter. High dose statin and check lipid profile. HbA1c. Smoking cessation - discussed. OK to start light antihypertensive treatment, but would defer aggressive treatment until he gets to primary care follow up. PT, OT and Speech therapies. Neurology Occupational Therapy Occupational Therapy Initial Assessment Date: 02/10/2021 Patient Name: Joselito Garrett : 1970 Date of Service: 02/10/2021 Discharge Recommendations: IP Rehab Assessment Performance deficits / Impairments: Decreased functional mobility ; Decreased ADL status; Decreased ROM; Decreased strength; Decreased vision/visual deficit; Decreased balance; Decreased safe awareness; Decreased high-level IADLs; Decreased cognition; Decreased fine motor control; Decreased endurance; Decreased posture; Decreased coordination Assessment: OT eval complete. Pt. presenting with performance deficits noted above. Pt. below baseline in ADLs and IADLs d/t decreased strength, coordination, and endurance. Pt. demonstrated right UE and LE weakness affecting balance, ambulation, and transfers. Pt. also impulsive with mobility and demonstrated expressive aphasia, causing occasional frustration. OT services are needed to increase independence and safety during ADLs and IADLs. Recommend IP rehab d/t significant decrease in ADL function from baseline, indicating need for intensive therapies. Pt. motivated and able to tolerate 3 hours of therapy per day Prognosis: Fair Decision Making: Medium Complexity OT Education: OT Role; Plan of Care; Transfer Training; Orientation REQUIRES OT FOLLOW UP: Yes Activity Tolerance Activity Tolerance: Patient Tolerated treatment well Safety Devices Safety Devices in place: Yes Type of devices: Left in bed; Bed alarm in place; Nurse notified; Call light within reach; Gait belt; All fall risk precautions in place Restraints Initially in place: No Patient Diagnosis(es): There were no encounter diagnoses. has no past medical history on file. has no past surgical history on file. Restrictions Restrictions/Precautions Restrictions/Precautions: Fall Risk (IV, + alarms, diet NPO) Required Braces or Orthoses?: No Subjective General Chart Reviewed: Yes Patient assessed for rehabilitation services?: Yes Additional Pertinent Hx: PMH of HTN, metabolic encephalopathy, chronic pain, and accidental electrocution Family / Caregiver Present: No Diagnosis: Pt. admitted to [facility] with c/o right sided weakness and difficulty speaking, imaging revealed acute/subacute left [employer] stroke with infarct and intracranial atherosclerosis right ICA Subjective Subjective: Pt. emotional when talking about his cat and wonders if someone is taking care of their cat. Pt. also frequently asked questions like what is wrong with me and why did this happen to me General Comment Comments: Pt. found supine in bed with RN present, RN approved OT eval Patient Currently in Pain: Denies Social/Functional History Social/Functional History Lives With: Alone Type of Home: House Home Layout: Multi-level, Able to Live on Main level with bedroom/bathroom Home Access: Level entry Bathroom Shower/Tub: Tub/Shower unit ADL Assistance: Independent Homemaking Assistance: Independent Homemaking Responsibilities: Yes Ambulation Assistance: Independent Transfer Assistance: Independent Active Student Activities Director: Yes Additional Comments: Pt. states he was previously independent in ADLs and IADLs including driving, he is responsible for all homemaking tasks. Pt. states he did not use a device previously for ambuation. He is agreeable to IP rehab Objective Vision: Impaired (Pt. able to accurately scan to all 4 quadrants. Pt. c/o occassional diplopia, however during scanning assessment pt. noted no diplopia) Vision Exceptions: Wears glasses for distance Hearing: Exceptions to WFL Hearing Exceptions: Hard of hearing/hearing concerns Orientation Overall Orientation Status: Impaired (D/t expressive aphasia, unable to state location and date, however expressed he knew it, just unable to state. Able to give name and ) Observation/Palpation Posture: Fair Balance Sitting Balance: Supervision Standing Balance: Minimal assistance Functional Mobility Functional - Mobility Device: No device Activity: To/from bathroom Assist Level: Minimal assistance Functional Mobility Comments: right LE and UE weakness noted during ambulation, needing assistance for safety and balance Toilet Transfers Toilet - Technique: Ambulating Equipment Used: Raised toilet seat without rails Toilet Transfer: Minimal assistance Toilet Transfers Comments: no device used, needed verbal cues for hand placement, slightly impuslive during mobility ADL LE Dressing: Stand by assistance (Able to don/doff socks while sitting in chair using figure 4 pose. Needed increased time and effort to complete) Additional Comments: Pt. agreeable to OOB ADL to assess function. Based on functional observation, may require mod A for donning/doffing pants and toileting d/t right sided weakness and decreased balance during standing aspects. Tone RUE RUE Tone: Hypotonic Tone LUE LUE Tone: Normotonic Coordination Movements Are Fluid And Coordinated: No Coordination and Movement description: Fine motor impairments; Right UE; Gross motor impairments Quality of Movement Other Comment: Pt. demonstrated difficulty with serial opposition on right UE, able to open 2/2 ADL items with incresed time and compensating with non-dominant left UE Bed mobility Supine to Sit: Stand by assistance Sit to Supine: Stand by assistance Scooting: Stand by assistance Comment: HOB slightly elevated, pt. impuslive with mobility. Transfers Sit to stand: Minimal assistance Stand to sit: Minimal assistance Transfer Comments: No device used. pt. impulsive, needing verbal cues to not stand prematurely. Noted right UE and LE weakness Cognition Overall Cognitive Status: Exceptions Following Commands: Follows one step commands consistently Safety Judgement: Decreased awareness of need for assistance Initiation: Requires cues for all Sequencing: Requires cues for all Cognition Comment: Pt. demonstrated impulsivity with mobility. Pt. also has expressive aphasia, and would occassionally get frustrated. Able to use most words in converstaion and answer PLOF and home set up questions without difficulty. Sensation Overall Sensation Status: (Pt. c/o no acute numbness or tingling) LUE PROM (degrees) LUE PROM: WFL LUE AROM (degrees) LUE AROM : WFL RUE PROM (degrees) RUE PROM: WFL RUE AROM (degrees) RUE AROM : WFL RUE General AROM: Noted unable to statically hold shoulder flexion past 90 degrees LUE Strength Gross LUE Strength: Exceptions to WFL LUE Strength Comment: Grossly 4/5 strength throughout left UE, good grasp RUE Strength Gross RUE Strength: Exceptions to WFL RUE Strength Comment: Shoulder flexion 3+/5, elbow flexion and extension 4-/5, fair grasp Plan Plan Times per week: 5 times per week Plan weeks: 4 weeks Current Treatment Recommendations: Strengthening, ROM, Balance Training, Endurance Training, Functional Mobility Training, Safety Education & Training, Self-Care / ADL, Patient/Caregiver Education & Training, Equipment Evaluation, Education, & procurement, Positioning, Neuromuscular Re-education AM-PAC Score AM-PAC Daily Activity Inpatient How much help for putting on and taking off regular lower body clothing?: A Lot How much help for Bathing?: A Lot How much help for Toileting?: A Lot How much help for putting on and taking off regular upper body clothing?: None How much help for taking care of personal grooming?: A Little How much help for eating meals?: None AM-PAC Inpatient Daily Activity Raw Score: 17 AM-PAC Inpatient ADL T-Scale Score : 37.26 ADL Inpatient CMS 0-100% Score: 50.11 ADL Inpatient CMS G-Code Modifier : CK Goals Short term goals Time Frame for Short term goals: 4 weeks Short term goal 1: LE dressing with mod indep after set up Short term goal 2: Toileting including trasnfers with mod indep Short term goal 3: Functional mobility during ADLs with mod indep Short term goal 4: Complete 2 sets of 10 reps of resistive exercise on each joint of right UE with mod indep Short term goal 5: Grooming FMC aspects with right UE and mod indep Patient Goals Patient goals : Pt. agreeable to rehab Therapy Time Individual Concurrent Group Co-treatment Time In 0957 Time Out 1015 Minutes 18 Patient's Occupational Therapy Plan of Care supervision is transferred to [facility] Rehab Occupational Therapist. Goals and or treatment plan was established in collaboration with patient/family/other representatives. MARINA Nickerson Speech Language Pathology Facility/Department: [address] CLINICAL BEDSIDE SWALLOW EVALUATION NAME: Joselito Garrett : 1970 ADMISSION DATE: 02/09/2021 ADMITTING DIAGNOSIS: has Cerebrovascular accident (CVA) due to vascular occlusion (HCC); Essential hypertension; KIM on CPAP; Electrocution, accidental; and Tobacco use on their problem list. ONSET DATE: 02/09/2021 Recent Chest Xray/CT of Chest: None completed. CT of Head: IMPRESSION: 1. Hypodensity in the medial aspect of the mid left temporal lobe and left periatrial white matter extending into the left thalamus compatible with a subacute infarct in the distribution of posterior branches of the left middle cerebral artery. Vasogenic edema secondary to neoplasm is not excluded. Correlate with clinical parameters. MRI may be of value in further evaluation. 2. No evidence of other acute or significant intracranial abnormality. CTR notification: The above findings were communicated to Dr. Graff by me by telephone on 02/09/2021 at approximately 1333 hours. Report Dictated on --- Final --- Dictated: 02/09/2021 1:30 pm Date of Eval: 02/10/2021 Evaluating Therapist: HORACIO Crowell Current Diet level: Current Diet : NPO Current Liquid Diet : NPO Primary Complaint Patient Complaint: Chief Complaint: Right-sided weakness and speech difficulties; Pain: Being managed by RN. Per Stroke Team Notes: ASSESSMENT Acute/Subacute L [employer] stroke with infarction (P1 & lenticulostriate) Intracranial atherosclerosis (R ICA occlusion) Cytotoxic edema R hemiparesis Expressive aphasia ? L lower medial visual field cut HTN KIM (uses CPAP) Hx of CP arrest (s/p electrocution injury) Agitation Palpitation Per Internal Medicine Notes: CHIEF COMPLAINT: Right side weakness, speaking difficulty Reason for Admission: Subacute stroke History Obtained From: patient, electronic medical record HISTORY OF PRESENT ILLNESS: Joselito is a 50 y.o. male with past medical history below who presents for right sided weakness and speech difficulty. Patient sent in by family for weakness. Family states patient last seen well on Monday. Patient states his weakness has been going on for months. Patient is a poor historian and seems to be having difficulty understanding questions. I am not sure if this is his baseline or a result of his stroke. 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 Patient is unsure if he takes his medications everyday or uses a cpap. His only complaint at this time is a headache. 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 Patient also has prior history of stroke. Denies chest pain, sob, abdominal pain, nausea, vomiting, diarrhea, constipation, fevers, or chills. Will admit for further evaluation and management. Patient evaluated in ER by neurology. Reason for Referral Joselito Garrett was referred for a bedside swallow evaluation to assess the efficiency of his swallow function, identify signs and symptoms of aspiration and make recommendations regarding safe dietary consistencies, effective compensatory strategies, and safe eating environment. Impression Dysphagia Impression : Patient clinically presents with concerns for mild oropharyngeal dysphagia, primarily evidenced with thin liquids. Recommend patient initiate a regular diet with mildly-thick liquids. Please position patient upright for PO intake, encourage single sips (straws ok) and provide PO meds with thickened liquids or in a puree bolus as able. METAL HANGER will initiate a dysphagia plan of care and continue to follow. Additionally request orders for speech/language evaluation as patient presents with expressive aphasia and is motivated to participate in evaluation for communication at this time. Treatment Plan Requires METAL HANGER Intervention: Yes Duration/Frequency of Treatment: 3x/week for 2 weeks Referral To: Speech Evaluation Recommended Diet and Intervention Diet Solids Recommendation: Regular Liquid Consistency Recommendation: Mildly Thick ([place]) Recommended Form of Meds: Meds in puree Recommendations: Dysphagia treatment Therapeutic Interventions: Diet tolerance monitoring Compensatory Swallowing Strategies Compensatory Swallowing Strategies: Upright as possible for all oral intake; Small bites/sips Treatment/Goals Long-term Goals Timeframe for Long-term Goals: 2 weeks Dysphagia Goals: The patient will tolerate recommended diet without observed clinical signs of aspiration; The patient will tolerate thin liquids without signs and symptoms of aspiration 10/10 via cup.; The patient will tolerate thin liquids without signs and symptoms of aspiration 10/10 via straw. General Chart Reviewed: Yes Behavior/Cognition: Alert; Cooperative Temperature Spikes Noted: No Respiratory Status: Room air O2 Device: None (Room air) Communication Observation: Functional; Aphasia Follows Directions: Simple Dentition: Adequate Patient Positioning: Upright in bed Baseline Vocal Quality: Normal Volitional Cough: Strong Prior Dysphagia History: Chart review reveals no prior assessments or intervention. Consistencies Administered: Thin - teaspoon; [place] - teaspoon; [place] - straw; [place] - cup; Dysphagia Pureed (Dysphagia I); Reg solid Vision/Hearing Vision Vision: Within Functional Limits Vision Exceptions: Wears glasses for distance Hearing Hearing: Within functional limits Hearing Exceptions: Hard of hearing/hearing concerns Oral Motor Deficits Oral/Motor Oral Motor: Within functional limits Oral Phase Dysfunction Oral Phase Oral Phase: WFL Oral Phase Oral Phase - Comment: Clinically suspect poor oral bolus control with thin liquids. Indicators of Pharyngeal Phase Dysfunction Pharyngeal Phase Pharyngeal: Patient with immediate, strong cough response to thin liquids by tsp. Delayed throat clear x 1 with sequential straw sips of mildly-thick liquids; no further cough, throat clear, or altered vocal quality observed with remaining trials of mildly-thick liquids or remaining textures. Prognosis Prognosis Prognosis for safe diet advancement: good Individuals consulted Consulted and agree with results and recommendations: Patient; RN Education Patient Education: Patient educated on results/recommendations. Patient Education Response: Verbalizes understanding Safety Devices in place: Yes Type of devices: Call light within reach; Nurse notified Therapy Time METAL HANGER Individual Minutes Time In: 1020 Time Out: 1040 Minutes: 20 METAL HANGER Total Treatment Time Total Treatment Time: 20 A KN95 mask, goggles, and gloves were worn throughout this session. Ramonita Harmon MS, HERMILO/METAL HANGER 02/10/2021 10:51 AM Physical Therapy Facility/Department: [address] Initial Assessment NAME: Joselito Garrett : 1970 Date of Service: 02/10/2021 Discharge Recommendations: IP Rehab PT Equipment Recommendations Other: tbd Assessment Body structures, Functions, Activity limitations: Decreased functional mobility ; Decreased ADL status; Decreased strength; Decreased safe awareness; Decreased vision/visual deficit; Decreased balance Assessment: Pt present with impaired mobility. Noted right side residual weakness due to recent stroke. Noted impaired balance during standing and gait. Gait deviation increasing the risk for falling. Impaired vision, reported double vision, also noted some impulsivity. Impaired coordination of RUE and RLE. Unsafe to return home alone. Recommend IP Rehab at discharge. Treatment Diagnosis: difficulty walking. Decision Making: Medium Complexity PT Education: Goals; PT Role; Plan of Care REQUIRES PT FOLLOW UP: Yes Activity Tolerance Activity Tolerance: Patient limited by endurance; Patient limited by fatigue Patient Diagnosis(es): There were no encounter diagnoses. has no past medical history on file. has no past surgical history on file. Restrictions Restrictions/Precautions Restrictions/Precautions: Fall Risk Required Braces or Orthoses?: No Vision/Hearing Vision: (Double vision) Hearing: Exceptions to WFL Hearing Exceptions: Hard of hearing/hearing concerns Subjective General Chart Reviewed: Yes Patient assessed for rehabilitation services?: Yes Additional Pertinent Hx: anoxic encephalopathy, illicit substance abuse per care everywhere EMR. Family / Caregiver Present: No Diagnosis: Stroke Follows Commands: Within Functional Limits General Comment Comments: Right side weakness and expressive aphasia, No tPA. Subjective Subjective: Pt in bed, agree with PT treatment. Expressive aphasia. When asked which side is weak pt replied I don't know. Noted IV was pulled out. When asked what happened. Pt reported he went to the bathroom unassisted and pulled the IV out. RN notified. Pain Screening Patient Currently in Pain: Denies Vital Signs Patient Currently in Pain: Denies Orientation Orientation Overall Orientation Status: Impaired (Expressive aphasia) Orientation Level: Oriented to person; Oriented to place Social/Functional History Social/Functional History Lives With: Alone Type of Home: House Home Layout: Multi-level, Able to Live on Main level with bedroom/bathroom ADL Assistance: Independent Homemaking Assistance: Independent Ambulation Assistance: Independent Transfer Assistance: Independent Additional Comments: Per pt ambulates without device. Cognition Cognition Overall Cognitive Status: Exceptions Following Commands: Follows one step commands with repetition Safety Judgement: Decreased awareness of need for assistance; Decreased awareness of need for safety Initiation: Requires cues for all Sequencing: Requires cues for all Cognition Comment: Impulsive Objective Observation/Palpation Posture: Fair AROM RLE (degrees) RLE General AROM: 30-45 hip and knee flex AROM LLE (degrees) LLE AROM : WFL Strength RLE Comment: 3-/5 Strength LLE Strength LLE: WFL Tone RLE RLE Tone: Normotonic Tone LLE LLE Tone: Normotonic Motor Control Gross Motor?: (impaired coordination RLE and RUE) Sensation Overall Sensation Status: (denied numbness) Bed mobility Supine to Sit: Minimal assistance Sit to Supine: Minimal assistance Scooting: Minimal assistance Transfers Sit to Stand: Minimal Assistance Stand to sit: Minimal Assistance Stand Pivot Transfers: Minimal Assistance Squat Pivot Transfers: Minimal Assistance Comment: Impulsive, when redirected pt stated I'm okay. from EOB from chair Ambulation Ambulation?: Yes WB Status: No restriction More Ambulation?: Yes Ambulation 1 Surface: level tile Device: No Device; Hand-Held Assist Assistance: Moderate assistance Quality of Gait: increased right hip and knee flex during swing phase, impaired coordination RLE. Gait Deviations: Decreased step length; Decreased step height; Deviated path Distance: 50 ft Ambulation 2 Surface - 2: level tile Device 2: No device (handheld) Quality of Gait 2: increased right hip and knee flex during swing phase, impaired coordination RLE. Distance: 5 ft Stairs/Curb Stairs?: No Balance Posture: Fair Sitting - Static: Fair; + Sitting - Dynamic: Fair Standing - Static: Fair; - Standing - Dynamic: Fair; - Plan Plan Times per week: 5x/wk Plan weeks: 2 Current Treatment Recommendations: Strengthening, Transfer Training, Balance Training, Gait Training, Functional Mobility Training, Neuromuscular Re-education Safety Devices Type of devices: Gait belt, Left in bed, Nurse notified, Bed alarm in place (PPE, RN at bedside) Restraints Initially in place: No G-Code OutComes Score [facility] Score [facility] Inpatient Mobility Raw Score : 10 (02/10/211018) AM-[facility] Inpatient T-Scale Score : 32.29 (02/10/211018) Mobility Inpatient CMS 0-100% Score: 76.75 (02/10/211018) Mobility Inpatient CMS G-Code Modifier : CL (02/10/211018) Goals Short term goals Time Frame for Short term goals: 2 weeks Short term goal 1: bed mobility modified independent Short term goal 2: transfers modified independent Short term goal 3: ambulate 150 ft with device, supervision Patient Goals Patient goals : To go home. Patient s Physical Therapy Plan of Care supervision is transferred to [facility] Rehab Department Physical Therapist. Therapy Time Individual Concurrent Group Co-treatment Time In 0910 Time Out 0935 Minutes 25 Timed Code Treatment Minutes: 8 Minutes (FA) Bigg Sheets PT documented in this encounter [facility] Work Phone: Hospital Discharge instructions 02-12-2021 Discharge Instr - LabDischarge Instr - COCAdditional InstructionsAttachments Note Date & Type Note Facility 02-12-2021 Hospital Discharg e instructions Nneka Ca RN - 02/12/2021 2:07 PM EST Follow-up With Details Why Contact Info Jesse Babb MD Schedule an appointment as soon as possible for a visit in 12 months Hospital Follow-Up - Carotid Stenosis [address] [place] [address], [address] [place] [phone] Callie Henriquez On 02/24/2021 PCP- NEW PATIENT APPOINTMENT- PCP to order PT/OT/METAL HANGER,.... Follow up appt from hospital stay @3:00[place] [id number] Kayla Aragon APRN - [employer] Go on 02/17/2021 Neurology- Follow up appt from hospital stay @ 2:30pm [address] [facility] [address] [facility] [id number] Gissell Mancera RN - 02/11/2021 12:12 PM EST Continuity of Care Form Patient Name: Joselito Garrett : 1970 Admit date: 02/09/2021 Discharge date: Code Status Order: Full Code Advance Directives: Admitting Physician: Afia Nielson MD PCP: No primary care provider on file. Discharging Nurse: Discharging Hospital Unit/Room#: [id number] Discharging Unit Phone Number: Emergency Contact: Extended Emergency Contact Information Primary Emergency Contact: Ania Blackwell Relation: Other Past Surgical History: History reviewed. No pertinent surgical history. Immunization History: There is no immunization history on file for this patient. Active Problems: Patient Active Problem List Diagnosis Code Cerebrovascular accident (CVA) due to vascular occlusion (HCC) I63.9 Essential hypertension I10 KIM on CPAP G47.33, Z99.89 Electrocution, accidental T75.4XXA Tobacco use Z72.0 Isolation/Infection: Isolation No Isolation Patient Infection Status None to display Nurse Assessment: Last Vital Signs: BP (!) 150/92 Pulse 66 Temp 98.9 F (37.2 C) (Temporal) Resp 17 Ht 6' 1 (1.854 m) Wt 195 lb 15.8 oz (88.9 kg) SpO2 97% BMI 25.86 kg/m Last documented pain score (0-10 scale): Pain Level: 0 Last Weight: Wt Readings from Last 1 Encounters: 02/10/21 195 lb 15.8 oz (88.9 kg) Mental Status: {IP PT MENTAL STATUS:} IV Access: { RONALD IV ACCESS:975879243} Nursing Mobility/ADLs: Walking {CHP DME ADLs:448393213} Transfer {CHP DME ADLs:412280508} Bathing {CHP DME ADLs:592072221} Dressing {CHP DME ADLs:999220316} Toileting {CHP DME ADLs:375459005} Feeding {CHP DME ADLs:724485824} Sales Service Manager {CHP DME ADLs:351118204} Med Delivery { RONALD MED Delivery:479818582} Wound Care Documentation and Therapy: Elimination: Continence: Bowel: {YES / NO:} Bladder: {YES / NO:} Urinary Catheter: {Urinary Catheter:942756128} Colostomy/Ileostomy/Ileal Conduit: {YES / NO:} Date of Last BM: Intake/Output Summary (Last 24 hours) at 02/11/2021 1210 Last data filed at 02/11/2021 1118 Gross per 24 hour Intake 700 ml Output Net 700 ml I/O last 3 completed shifts: In: 500 [P.O.:500] Out: - Safety Concerns: { RONALD Safety Concerns:118855776} Impairments/Disabilities: { RONALD Impairments/Disabilities:672220 273} Nutrition Therapy: Current Nutrition Therapy: { RONALD Diet List:564376550} Routes of Feeding: {[facility] DME Other Feedings:721723739} Liquids: {[facility] liquid thickness:28690} Daily Fluid Restriction: {CHP DME Yes amt example:123742472} Last Modified Barium Swallow with Video (Video Swallowing Test): {Done Not Done Date:} Treatments at the Time of Hospital Discharge: Respiratory Treatments: Oxygen Therapy: {Therapy; copd oxygen:70941} Ventilator: { CC Vent List:218299740} Rehab Therapies: {THERAPEUTIC INTERVENTION:9703665395} Weight Bearing Status/Restrictions: { CC Weight Bearin} Other Medical Equipment (for information only, NOT a DME order): {EQUIPMENT:461221527} Other Treatments: Patient's personal belongings (please select all that are sent with patient): {CHP DME Belongings:081247657} RN SIGNATURE: {Esignature:661663926} CASE MANAGEMENT/SOCIAL WORK SECTION Inpatient Status Date: 02/09/21 Readmission Risk Assessment Score: Readmission Risk Risk of Unplanned Readmission: 8 Discharging to Facility/ Agency Name: [facility] Address: [address] [place], [place] [address] [address] Dialysis Facility (if applicable) Name: Address: Dialysis Schedule: Phone: Fax: Neurology Teacher/Data Collection Specialist signature: PHYSICIAN SECTION Prognosis: {Prognosis:6382666985} Condition at Discharge: {MH Patient Condition:772729433} Rehab Potential (if transferring to Rehab): {Prognosis:7055526700} Recommended Labs or Other Treatments After Discharge: Physician Certification: I certify the above information and transfer of Joselito Garrett is necessary for the continuing treatment of the diagnosis listed and that he requires {Admit to Appropriate Level of Care:47579} for {GREATER/LESS:527525764} 30 days. Update Admission H&P: {CHP DME Changes in HandP:604884209} PHYSICIAN SIGNATURE: {Esignature:227329029} Lowell Carpio DO - 02/09/2021 Stop plavix after 90 days Refer to the Understanding Stroke Booklet given to you, written material provided to patient/family, addressing all signs & symptoms of a stroke, which are: sudden numbness or weakness of the face, arm or leg, especially on one side of the body sudden confusion sudden difficulty speaking or understanding sudden trouble seeing in one or both eyes sudden trouble walking,dizziness, loss of balance or coordination sudden severe headache with no known cause syncope or temporary loss of consciousness seizure Explained the need to call EMS ([phone]) immediately if signs & symptoms occur. Discussed medications that the patient is taking, will review medications again prior to discharge, risk factors, and the need for follow-up with a physician/TELEVISION ANNOUNCER/PA after discharge. Discussed the patient s personal risk factors for Stroke /TIA with patient/family, and ways to reduce the risk for a recurrent stroke. Patient's personal risk factors which were identified are: [x] High blood pressure [x] High cholesterol [] Atrial fibrillation [] Diabetes [x] Smoking [] Overweight [x] Lack of Exercise [x] Sleep apnea [] Prior heart disease or heart attack [] Excessive alcohol use [] Use of illicit drugs [] Personal history of previous TIA or stroke [x] Family history of stroke or heart disease [] Carotid stenosis [] Heart failure [] Patent Foramen Ovale [] Migraine [] Hormone replacement therapy [] Current (up to six weeks post ) [x] Depression [] Sickle Cell [] Renal insufficiency - chronic [] None Refer to Understanding Stroke Booklet. Advised patient that risk for stroke/TIA can be reduced by modifying/controlling risk factors. Patient advised to take medications as prescribed, which will be detailed in the discharge instructions, and to not stop taking them without consulting a physician. In addition, pt. advised to maintain a healthy diet, exercise regularly and to not smoke. The following attachments cannot be sent through Care Everywhere.Low Sodium Diet (Irish)documented in this encounter [facility] Work Phone: Hospital course Narrative 02-12-2021 Lowell Carpio DO - 02/12/2021 1:21 PM EST Note Date & Type Note Facility 02-12-2021 Hospital course Narrative Hospital Medicine Discharge Summary Joselito Garrett : 1970 Admit date: 02/09/2021 Discharge date: 02/12/2021 Admitting Physician: Afia Nielson MD Primary Care Physician: No primary care provider on file. Discharge Diagnoses: acute CVA- noted on CT H. Has right upper and lower ext weakness and expressive aphasia Right carotid stenosis- 100% HTN KIM Chief Complaint Patient presents with Extremity Weakness right sided weakness. [facility] Monday Hospital Course: \ Joselito is a 50 y.o. male with past medical history below who presents for right sided weakness and speech difficulty. Patient sent in by family for weakness. Family states patient last seen well on Monday. Patient states his weakness has been going on for months. Patient is a poor historian and seems to be having difficulty understanding questions. I am not sure if this is his baseline or a result of his stroke. 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 Patient is unsure if he takes his medications everyday or uses a cpap. His only complaint at this time is a headache. 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 Patient also has prior history of stroke. Denies chest pain, sob, abdominal pain, nausea, vomiting, diarrhea, constipation, fevers, or chills. Will admit for further evaluation and management Found to have acute infarct on MRI. Neurology recommended. DAPT x 3months then asa alone PT recommended acute rehab Declined acute rehab Exam on discharge: BP (!) 156/110 Pulse 90 Temp 98.6 F (37 C) (Temporal) Resp 18 Ht 6' 1 (1.854 m) Wt 195 lb 15.8 oz (88.9 kg) SpO2 99% BMI 25.86 kg/m General appearance: No apparent distress, appears stated age and cooperative. HEENT: Pupils equal, round, and reactive to light. Conjunctivae/corneas clear. Neck: Supple, with full range of motion. No jugular venous distention. Trachea midline. Respiratory: Normal respiratory effort. Clear to auscultation, bilaterally without Rales/Wheezes/Rhonchi. Cardiovascular: Regular rate and rhythm with normal S1/S2 without murmurs, rubs or gallops. Abdomen: Soft, non-tender, non-distended with normal bowel sounds. Musculoskeletal: No clubbing, cyanosis or edema bilaterally. Full range of motion without deformity. Skin: Skin color, texture, turgor normal. No rashes or lesions. Neuro: Right upper ext strength 4/5, RLE 4/5, able to walk on his own without help. Nl Comprehension, Alert,awake and oriented. NL CN. Symetrical tone and reflexes. Mild dysarthria Psychiatric: Alert and oriented, thought content appropriate, normal insight Capillary Refill: Brisk,< 3 seconds Peripheral Pulses: +2 palpable, equal bilaterally Patient was seen by the following consultants Consults: IP CONSULT TO STROKE TEAM IP CONSULT TO NEUROLOGY IP CONSULT TO CASE MANAGEMENT IP CONSULT TO VASCULAR SURGERY Significant Diagnostic Studies: Refer to chart Please refer to chart if no studies are shown here ECHO Complete 2D W Doppler W Color Result Date: 02/10/2021 TRANSTHORACIC ECHOCARDIOGRAM PATIENT: Joselito Garrett STUDY DATE: 02/10/2021 : 1970 AGE: 50 HT/WT: 185.4 cm (73 88.5 kg (194.6 in) lb) GENDER: M BP: 165 / 104 LOCATION: [facility] PATIENT Inpatient main STATUS: *ORDERING PHYSICIAN: * Hayley, *FELLOW: * Jelani Anderson MD *READING PHYSICIAN: * Pavan *CIVIL TRANSPORTATION ENGINEER: * Ruchi Maria MD RDCS, AE --- INDICATIONS: Stroke. --- CONCLUSIONS SUMMARY: 1. Atrial septum: Color Doppler shows no shunt. There is no evidence of right to left shunting with injection of agitated saline contrast. 2. Left ventricle: Average LV global longitudinal strain is -21. The cavity size is normal. Wall thickness is normal. Systolic function is normal by visual assessment. The estimated ejection fraction is 70%. There are no regional wall motion abnormalities. 3. Right ventricle: The cavity size is normal. Systolic function is normal. Right ventricular systolic pressure is within the normal range. 4. Aortic valve: Structurally normal valve. Trileaflet. There is no stenosis. There is mild, 1+ regurgitation directed centrally in the LVOT. 5. Aorta: The aorta is moderately dilated. The aortic root diameter is 4.5 cm. The ascending aorta internal dimension in the A-P direction, maximal systolic dimension is 4.2 cm. 6. No source of embolism is identified. RECOMMENDATIONS: Annual US follow up for dilated aorta, or alternative imaging modality as clinically indicated --- STUDY DATA: Complete transthoracic echocardiogram. Procedure: Image quality was fair. M-mode, complete 2D, strain rate, complete spectral Doppler, and color flow Doppler images were acquired and archived for permanent storage and are available for subsequent review. Study status: Routine. Patient status: Inpatient. --- FINDINGS LEFT VENTRICLE: Average LV global longitudinal strain is -21. The cavity size is normal. Wall thickness is normal. Systolic function is normal by visual assessment. The estimated ejection fraction is 70%. There are no regional wall motion abnormalities. Left ventricular diastolic function parameters are normal. E/e' average: 7 RIGHT VENTRICLE: The cavity size is normal. Systolic function is normal. Right ventricular systolic pressure is within the normal range. VENTRICULAR SEPTUM: There is no evidence of a ventricular septal defect. LEFT ATRIUM: The atrium is normal in size. RIGHT ATRIUM: The atrium is normal in size. ATRIAL SEPTUM: Color Doppler shows no shunt. There is no evidence of right to left shunting with injection of agitated saline contrast. MITRAL VALVE: Structurally normal valve. Doppler: There is trivial, less than 1+ regurgitation. The peak diastolic gradient is 3 mm Hg. AORTIC VALVE: Structurally normal valve. Trileaflet. Doppler: There is no stenosis. There is mild, 1+ regurgitation directed centrally in the LVOT. The peak systolic gradient is 12 mm Hg. The peak systolic velocity is 1.8 m/sec. TRICUSPID VALVE: Structurally normal valve. Doppler: There is trivial, less than 1+ regurgitation. PULMONIC VALVE: Structurally normal valve. Doppler: There is trivial, less than 1+ regurgitation. AORTA: The aorta is moderately dilated. PULMONARY ARTERY: Main pulmonary artery: Normal. PERICARDIUM: There is no pericardial effusion. SYSTEMIC VEINS: Inferior vena cava: The vessel is normal. The IVC collapses by greater than 50% with inspiration. --- Measurements Value Reference Aortic root ID (H) 4.5 cm <4.2 Aortic root ID, STJ, ED 3.4 cm 2.3 - 3.5 Aortic root ID/bsa, STJ, ED 1.6 cm/m^2 1.1 - 1.9 Value Reference Ascending aorta ID, A-P, S 4.2 cm Ascending aorta ID/bsa, A-P, S 2.0 cm/m^2 Left ventricle Value Reference GLS, 2D 20.56 % LV ID, ED (L) 4.0 cm 4.2 - 5.8 LV ID, ES (L) 2.1 cm 2.5 - 4.0 LV ID/bsa, ED (L) 1.9 cm/m^2 2.2 - 3.0 LV ID/bsa, ES (L) 1.0 cm/m^2 1.3 - 2.1 LV PW thickness, ED (H) 1.1 cm 0.6 - 1.0 LV PW/LV ID ratio, ED 0.27 LV wall mass 140 g 96 - 200 LV wall mass/bsa 66 g/m^2 50 - 102 LV ejection fraction, 2-p 70 % 52 - 72 LV E/e', lateral 7.2 LV E/e', medial 9.1 LV E/e', average 8 Ventricular septum Value Reference IVS thickness, ED (H) 1.1 cm 0.6 - 1.0 LVOT Value Reference LVOT ID, A-P 2.0 cm LVOT mean velocity, S 1 m/sec LVOT peak gradient, S 8 mm Hg Stroke volume (SV), LVOT DP 85 ml Stroke index (SV/bsa), LVOT DP 40 ml/m^2 Aortic valve Value Reference Aortic valve peak velocity, S 1.8 m/sec Aortic peak gradient, S 12 mm Hg Left atrium Value Reference LA volume/bsa, ES, 2-p 23 ml/m^2 16 - 34 Mitral valve Value Reference Mitral E-wave peak velocity 0.9 m/sec Mitral A-wave peak velocity 0.7 m/sec Mitral deceleration time 193 ms Mitral peak gradient, D 3 mm Hg Mitral E/A ratio, peak 1.3 Tricuspid valve Value Reference Tricuspid regurg peak velocity 2.4 m/sec <=2.8 Tricuspid peak RV-RA gradient 22 mm Hg Right atrium Value Reference RA area, ES, A4C 14 cm^2 10 - 18 Systemic veins Value Reference Estimated RAP 3 mm Hg Right ventricle Value Reference RV ID, minor axis, ED, A4C base 3.4 cm 2.5 - 4.1 RV ID, minor axis, ED, A4C mid (H) 3.6 cm 1.9 - 3.5 TAPSE, 2D 2.0 cm 1.7 - 3.1 RV pressure, S, DP 25 mm Hg RV s', lateral (H) 21.8 cm/sec 6.0 - 13.4 Pulmonic valve Value Reference Pulmonic peak gradient, S 4 mm Hg Legend: (L) and (H) yonas values outside specified reference range. Electronically signed by Pavan Maria MD 02/10/2021 17:01 Prior Signatures: CTA HEAD NECK W WO CONTRAST Result Date: 02/09/2021 [id number] ACCESSION EXAM DATE/TIME PROCEDURE ORDERING PROVIDER [id number] 02/09/2021 13:26 EST CTA Head/Neck w/ + w/o UNASSIGNED, UNASSIGNED contrast CPT code 74315 61129 Q9967 Reason For Exam (CTA Head/Neck w/ + w/o contrast) Stroke Symptoms Report CLINICAL INFORMATION: Right-sided weakness. Expressive aphasia. Stroke symptoms. Stroke team. CTA brain and neck with intravenous contrast with 3-D reconstructions: Contrast: Isovue-370, 50 mL. (Additional to CT perfusion.) CTA brain: CT angiographic studies of the intracranial vessels were performed following the acquisition of high resolution helical CT data during bolus contrast infusion with axial, coronal and sagittal 2-D reconstructions. The data set was then concurrently post processed on the thereNow workstation by hi with reconstructed 3-D shaded surface angiographic renderings of the arterial intracranial vessels better visualize arterial vascular anatomy. A noncontrast CT head examination was obtained and reported separately. CT angiographic study demonstrates patent flow in the distal left internal carotid and basilar arteries. There is no demonstrable blood flow in the intracranial portion of the distal right internal carotid artery. There is atherosclerotic calcification of the intracavernous portions of both internal carotid arteries arteries with patent blood flow in both, most likely secondary to retrograde blood flow on the right, with mild bilateral stenosis. The right and left anterior and middle cerebral arteries are patent. Neither posterior communicating artery is visualized. There is a widely patent anterior communicating artery. The basilar artery and both posterior cerebral arteries are small in in caliber. Flow is demonstrated in small caliber distal vertebral arteries left slightly larger than right.. There is no evidence of aneurysm or vascular malformation. IMPRESSION: 1. 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 2. Generally small caliber vertebrobasilar arterial system without evidence of distal occlusion. 2. Patent distal left internal carotid, and bilateral anterior and middle cerebral arteries. CTA neck: Volume acquisition CT images of the extracranial vessels were obtained during bolus intravenous contrast administration with axial, coronal and sagittal 2-D reconstructions. The imaging data set was concurrently post processed on the thereNow workstation with 2-D maximum intensity projection (MIP) and multiprojectional 3-D surface shaded reconstructed angiographic images to better visualize gross arterial vascular anatomy. There is patent flow in the right and left common carotid arteries. There is no evidence of arterial dissection. There is a noncalcified atherosclerotic disease at the origin of the left vertebral artery with diminished flow and nonvisualization of the proximal segment of the left vertebral artery. There is reconstitution of flow of the mid and distal left cervical vertebral artery which may be due to retrograde flow. The entire right and remainder of the left cervical vertebral arteries are diffusely diminutive. The findings are most suggestive of a chronic process most likely secondary to atherosclerotic disease particularly without a provided history of trauma. There is no convincing evidence of arterial dissection. The right carotid bifurcation demonstrates atherosclerotic plaque with posterior atherosclerotic calcification. There is approximately 30% stenosis of the bifurcation. There is no visible blebs are in the right cervical internal carotid artery consistent with occlusion, likely chronic. The left carotid bifurcation demonstrates anterior and posterior atherosclerotic plaque with mild luminal stenosis (approximately 10-20% stenosis). There is no ulceration or dissection. There is patent flow in the remainder of the left internal carotid artery. IMPRESSION: 1. 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 2. Diffusely diminutive bilateral cervical vertebral arteries most likely related to chronic atherosclerotic disease although a developmental component is not excluded. There is reconstitution of flow in the distal left vertebral artery secondary to retrograde flow. 3. Atherosclerotic disease of both common carotid artery bifurcations with atherosclerotic calcification, left greater than right. There is approximately 30% stenosis right and 10-20% on the left common carotid artery bifurcation by NASCET criteria 4. Occlusion of the right internal carotid artery (100% stenosis by NASCET criteria) extending through the infraclinoid segment. 5. No evidence of other significant stenosis of the remainder of both common carotid arteries and the cervical left internal carotid artery (0% stenosis of the remainder of the bilateral common and cervical left internal carotid arteries by NASCET criteria. CTR notification: The above findings were communicated to Dr. Graff by me by telephone on 02/09/2021 at approximately 1400 and again at 1450 hours. Computed Tomography Report Report Dictated on --- Final --- Dictated: 02/09/2021 2:12 pm Dictating Physician: MD FRANCIS HARLAN Signed Date and Time: 02/09/2021 3:02 pm Signed by: MD FRANCIS HARLAN Transcribed Date and Time: 02/09/2021 2:12 CT HEAD WO CONTRAST Result Date: 02/09/2021 [id number] Tomography ACCESSION EXAM DATE/TIME PROCEDURE ORDERING PROVIDER [id number] 02/09/2021 13:[address] Head or Brain w/o UNASSIGNED, UNASSIGNED Contrast CPT code 79983 Reason For Exam (CT Head or Brain w/o Contrast) Stroke Symptoms Report CLINICAL INFORMATION: Right-sided weakness. Expressive aphasia. Stroke symptoms. Stroke team. CT HEAD WITHOUT INTRAVENOUS CONTRAST: Volume acquisition CT images are obtained from foramen magnum to vertex without intravenous contrast with axial, coronal and sagittal 2-D reconstructions. The ventricles and sulci are normal in size and configuration. No intra-axial mass lesion or mass-effect is seen. There is a focal area of hypodensity in the medial mid left temporal lobe and left periatrial white matter extending into the left thalamus compatible with a subacute infarct. Vasogenic edema related to neoplasm is not excluded. There is no evidence of acute intracranial hemorrhage or other focal abnormal intra-axial densities. ASPECTS score: 8/10 IMPRESSION: 1. Hypodensity in the medial aspect of the mid left temporal lobe and left periatrial white matter extending into the left thalamus compatible with a subacute infarct in the distribution of posterior branches of the left middle cerebral artery. Vasogenic edema secondary to neoplasm is not excluded. Correlate with clinical parameters. MRI may be of value in further evaluation. 2. No evidence of other acute or significant intracranial abnormality. CTR notification: The above findings were communicated to Dr. Graff by me by telephone on 02/09/2021 at approximately 1333 hours. Report Dictated on --- Final --- Dictated: 02/09/2021 1:30 pm Dictating Physician: MD FRANCIS HARLAN Signed Date and Time: 02/09/2021 1:42 pm Signed by: MD FRANCIS HARLAN Transcribed Date and Time: 02/09/2021 1:30 CT BRAIN PERFUSION Result Date: 02/09/2021 Patient Name: JOSELITO GARRETT [facility]#: [id number] Computed Tomography ACCESSION EXAM DATE/TIME PROCEDURE ORDERING PROVIDER [id number] 02/09/2021 13:[address] Cerebral Perfusion UNASSIGNED, UNASSIGNED CPT code 0042T Reason For Exam (CT Cerebral Perfusion) Stroke Symptoms Report Interpretation of this examination was delayed by computer systems error. This examination was received by me for interpretation on 02/09/2021 at approximately 1500 hours. CLINICAL INFORMATION: Right-sided weakness. Expressive aphasia. Stroke symptoms. Stroke team. CT perfusion brain imaging: Contrast: Isovue-370, 50 mL.. Dynamic 4-D CT Perfusion study of the whole brain was performed following administration of intravenous contrast. RAPID software color blood flow maps of the brain with quantitative assessment of Tmax, mean transit time, cerebral blood flow and cerebral blood volume was provided. CT perfusion: There is focal decreased perfusion in the medial left temporal lobe and left thalamic region corresponding to the area of hypodensity on the earlier CT head examination. No global or other regional perfusion abnormalities are noted on the Tmax, MTT, CBV, or CBF maps. CT perfusion quantitative findings: Cerebral maps: CBF<30%: 0 ml. Tmax >6 sec: 10 ml. Mismatch volume: 10 ml. IMPRESSION: 1. Focal decreased perfusion in the medial left temporal lobe and left thalamic region corresponding to the area of hypodensity in the anterior liver CT head consistent with a subacute infarct. 2. No global or other regional perfusion deficits. CTR notification: The above findings were communicated to Dr. Graff by me by telephone at the time of dictation on 02/09/2021 at approximately 1305 hours. Computed Tomography Report Report Dictated on --- Final --- Dictated: 02/09/2021 3:03 pm Dictating Physician: MD FRANCIS HARLAN Signed Date and Time: 02/09/2021 3:08 pm Signed by: MD FRANCIS HARLAN Transcribed Date and Time: 02/09/2021 3:03 Discharge Medications: Medication List START taking these medications amLODIPine 5 MG tablet Commonly known as: NORVASC Take 1 tablet by mouth daily Start taking on: February 13, 2021 aspirin 81 MG EC tablet Take 1 tablet by mouth daily Start taking on: February 13, 2021 atorvastatin 80 MG tablet Commonly known as: LIPITOR Take 1 tablet by mouth nightly clopidogrel 75 MG tablet Commonly known as: PLAVIX Take 1 tablet by mouth daily Start taking on: February 13, 2021 Where to Get Your Medications These medications were sent to [facility]/pharmacy #[id number] - [place], [place] - [address] - P [phone] - F [phone] [id number] , [facility] [id number] amLODIPine 5 MG tablet aspirin 81 MG EC tablet atorvastatin 80 MG tablet clopidogrel 75 MG tablet Disposition: If discharged to Home, Any [facility] needs that were indicated and/or required as been addressed and set up by Social Work. Condition at discharge: good Activity: activity as tolerated Total time taken for discharging this patient: 40 minutes. Greater than 70% of time was spent focused exclusively on this patient. Time was taken to review chart, discuss plans with consultants, reconciling medications, discussing plan answering questions with patient. Signed: Lowell Carpio DO 02/12/2021, 1:21 PM Joselito Garrett, documented in this encounter [facility] Work Phone: Evaluation note Note Date & Type Note Facility Evaluation note Diagnosis Cerebrovascular accident (CVA), unspecified mechanism (HCC)- Primary Essential hypertension Unspecified essential hypertension KIM on CPAP Obstructive sleep apnea (adult) (pediatric) Electrocution, accidental Electrocution and nonfatal effects of electric current Tobacco use Tobacco use disorder documented in this encounter [facility] Work Phone: Evaluation note Note Date & Type Note Facility Evaluation note Diagnosis Onset Date Aortic root dilatation acute CVA (cerebral vascular accident) acute Essential hypertension acute History of perforated ear drum acute Hyperlipidemia acute Other and unspecified hyperlipidemia acute Electrocution resolved [facility] Work Phone: Evaluation note Note Date & Type Note Facility Evaluation note Diagnosis Onset Date Resolution Aortic root dilatation acute Ju ly 2024 8:44am Cigarette smoker acute October 8:44am CVA (cerebral vascular accident) acute October 28, 2024 8:44am Essential hypertension acute Ju ly 2024 8:44am Hyperlipidemia acute October 28, 2024 8:44am Other and unspecified hyperlipidemia acute October 28, 2024 8:44am [facility] Work Phone: Hospital Discharge instructions Note Date & Type Note Facility Hospital Discharge instructions Ambulatory OrdersPain Management Location: None Selected [facility] Work Phone: Advance Directives No Advanced Directives Records FoundLatest Code Status on File Code Status Date Activated Date Inactivated Comments Full Code 02/09/2021 9:30 PM Summary Purpose Family History No Family History Records Found Relationship Condition Age at Onset Recorded Date/T wilma Not Specified Cardiac disease Unknown Hypertension Unknown Chief Complaint and Reason for Visit Chief Complaint Chronic mastoiditis, right ear 6 M FU E ORDER THORACIC AORTIC ECTASIA Reason for Visit Aortic root dilatati on CVA (cerebral vascular accident) Essential hypertension History of perforated ear drum Hyperlipidemia Other and unspecified hyperlipidemia Electrocution Chief Complaint Admit Date 5 M FU October 28, 2024 8:44 am Reason for Visit Admit Date Aortic root dilatation October 28, 2024 8 :44am Cigarette smoker October 28, 2024 8:44 am CVA (cerebral vascular accident) October 282024 8:44am Essential hypertension October 28, 2024 8 :44am Hyperlipidemia October 28, 2024 8:44 am Other and unspecified hyperlipidemia Raúl y 2024 8:44am Additional Source Comments Reason for Visit (unrecogniz ed section and content) Reason Comments Extremity Weakness right sided weakness . LKW Monday Ordered Prescriptions (unrec ognized section and content) Prescription Sig Dispensed Refills Start Date End Da te clopidogrel (PLAVIX) 75 MG tablet Take 1 tablet by mouth daily 30 tablet 2 02/13/2021 amLODIPine (NORVASC) 5 MG tablet Take 1 tablet by mouth daily 30 tablet 3 02/13/2021 atorvastatin (LIPITOR) 80 MG tablet Take 1 tablet by mouth nightly 30 tablet 3 02/12/2021 aspirin 81 MG EC tablet Take 1 tablet by mouth daily 30 tablet 3 02/13/2021 Scheduled Active and Recently Administ ered Medications (unrecognized section and content) Medication Order 02/10/2021 02/11/2021 02/12/2021 amLODIPine (NORVASC) tablet 5 mg 5 mg, Oral, DAILY, First dose on Abril 02/11/21 at 1300 1547 (Given - Provider: Krystal Montes LPN) 0838 (Given - Provider: Hilda Jesus RN) aspirin EC tablet 81 mg(Linked Group 1) 81 mg, Oral, DAILY, First dose on Mon02/10/21 at 0900, Do NOT administer if bleed present on follow up CT-Head. 1217 (Given - Provider: Hilda Jesus RN) 1021 (Given - Provider: Claudia Pierce RN) 0838 (Given - Provider: Hilda Jesus RN) aspirin suppository 300 mg(Linked Group 1) 300 mg, Rectal, DAILY, First dose on Mon02/10/21 at 0900, Use suppository if NPO or failed swallow screen. 1217 (See Alternative - Provider: Hilda Jesus RN) 1021 (See Alternative - Provider: Claudia Pierce RN) 0838 (See Alternative - Provider: Hilda Jesus RN) atorvastatin (LIPITOR) tablet 40 mg (CANCELED) 40 mg, Oral, NIGHTLY, First dose on Mon02/09/21 at 2200, If patient with no documented allergies or prior reported intolerance to Statins 2024 (Given - Provider: Valentina Blevins RN) atorvastatin (LIPITOR) tablet 80 mg 80 mg, Oral, NIGHTLY, First dose (after last modification) on Mon02/11/21 at 2100, If patient with no documented allergies or prior reported intolerance to Statins 2241 (Not Given - Provider: Chery Lopez RN - Reason: Patient/family refused) 2100 (Due) clopidogrel (PLAVIX) tablet 300 mg (COMPLETED) 300 mg, Oral, ONCE, On Mon02/10/21 at 1230, For 1 dose 1650 (Given - Provider: Nicole Pelayo LPN) clopidogrel (PLAVIX) tablet 75 mg 75 mg, Oral, DAILY, First dose on Mon02/11/21 at 0900 1021 (Given - Provider: Claudia Pierce RN) 0839 (Given - Provider: Hilda Jesus RN) enoxaparin (LOVENOX) injection 40 mg 40 mg, SubCUTAneous, DAILY, First dose on Mon02/10/21 at 0900 1217 (Given - Provider: Hilda Jesus RN) 1019 (Given - Provider: Claudia Pierce RN) 0838 (Given - Provider: Hilda Jesus RN) LORazepam (ATIVAN) injection 1 mg 1 mg, IntraVENous, ONCE, On Mon02/11/21 at 1515, For 1 dose, PRIOR to MRI 2240 (Not Given - Provider: Chery Lopez RN - Reason: Other - Comment: pt didn't need it before MRI) sodium chloride flush 0.9 % injection 5-40 mL 5-40 mL, IntraVENous, EVERY 12 HOURS SCHEDULED (2 times per day), First dose on Mon02/09/21 at 2200, For Line Patency: Peripheral IV = 5 mL; Midline or Central Line = 10 mL/lumen. If following IV push medication, administer flush at same rate as the IV push. Flush volume is determined by type of infusion therapy being given. For non-viscous solutions use: Peripheral IV = 5 mL Midline or Central Line = 10 mL/lumen For viscous solutions (i.e. blood components, parenteral nutrition, contrast media, or after obtaining blood sample) use: Peripheral IV = 10 mL Midline or Central Line = 20 mL/lumen 1715 (Not Given - Provider: Hilda Jesus RN - Reason: Other)2107 (Given - Provider: Valentina Blevins RN) 1023 (Given - Provider: Claudia Pierce RN)2241 (Not Given - Provider: Chery Lopez RN - Reason: Patient/family refused) 0839 (Given - Provider: Hilda Jesus RN)2100 (Due) Continuous Medication Order 02/10/2021 02/11/2021 02/12/2021 0.9 % sodium chloride infusion IntraVENous, at 50 mL/hr, CONTINUOUS, Starting on Mon02/09/21 at 1330 0.9 % sodium chloride infusion IntraVENous, at 50 mL/hr, CONTINUOUS, Starting on Mon02/09/21 at 2200 2126 (New Bag - Provider: Toro Harry RN) PRN Medication Order 02/10/2021 02/11/2021 02/12/2021 0.9 % sodium chloride infusion 25 mL, IntraVENous, at 100 mL/hr, PRN, If patient receiving piggyback infusions without ordered maintenance IV fluids or with frequent/long duration piggyback infusions, Starting on Mon02/09/21 at 2130, Administer at the same rate as the piggyback being infused. labetalol (NORMODYNE;TRANDATE) injection 10 mg 10 mg, IntraVENous, EVERY 10 MIN PRN, High Blood Pressure, Starting on Mon02/09/21 at 1315, For 2 doses, Give over 1-2 minutes, if SBP greater than 185 mmHg or DBP greater than 110 mmHg on 2 consecutive measurements immediately prior to planned administration of thrombolytic. May repeat x1 if SBP greater than 185 mmHg or DBP greater than 105 mmHg. Notify physician if SBP greater than 185 mmHg or DBP greater than 110 mmHg after second dose. Hold for HR less than 60 bpm and notify provider. labetalol (NORMODYNE;TRANDATE) injection 10 mg 10 mg, IntraVENous, EVERY 10 MIN PRN, High Blood Pressure, Starting on Mon02/09/21 at 2130, Administer 10 mg IV every 10 min if SBP is 210 mmHg or greater OR DBP is 120 mmHg or greater as long as HR is greater than 65bpm until goal BP has been achieved and to a max of 30 mg Notify provider if SBP is 210 mmHg or greater OR DBP is 120 mmHg or greater after 3 consecutive doses. If HR is less than 65 call MD for further orders ondansetron (ZOFRAN) injection 4 mg 4 mg, IntraVENous, EVERY 6 HOURS PRN, Nausea, Vomiting, Starting on Mon02/09/21 at 2130 perflutren lipid microspheres (DEFINITY) injection 1.65 mg 1.65 mg (1.5 mL), IntraVENous, IMG ONCE PRN, Other, Suboptimal Echo Image, Starting on Mon02/09/21 at 2130, For 72 hours, Administer up to 1.65 mg via slow IVP for suboptimal echocardiogram enhancement. May administer as concentrated dose or diluted in 8.5 mL of 0.9% sodium chloride for a total volume of 10 mL. May administer as divided doses to reach optimal image enhancement. sodium chloride flush 0.9 % injection 5-40 mL 5-40 mL, IntraVENous, PRN, Line Care, After every IV line use, Starting on Mon02/09/21 at 2130, For Line Patency: Peripheral IV = 5 mL; Midline or Central Line = 10 mL/lumen. If following IV push medication, administer flush at same rate as the IV push. Flush volume is determined by type of infusion therapy being given. For non-viscous solutions use: Peripheral IV = 5 mL Midline or Central Line = 10 mL/lumen For viscous solutions (i.e. blood components, parenteral nutrition, contrast media, or after obtaining blood sample) use: Peripheral IV = 10 mL Midline or Central Line = 20 mL/lumen sodium chloride flush 0.9 % injection 5-40 mL 5-40 mL, IntraVENous, PRN, Line Care, Per Data Software Engineer Request, Starting on Mon02/09/21 at 2130, For 72 hours, May use order for Line Care after every IV line use and Agitated Saline Bubble Study. Administration for Bubble Study per wind plant manager request for only. Remove 1 mL 0.9% sodium chloride from 10 mL syringe for creating agitated saline. If following IV push medication, administer flush at same rate as the IV push. Flush volume is determined by type of infusion therapy being given. , For non-viscous solutions use: Peripheral IV = 5 mL Midline or Central Line = 10 mL/lumen For viscous solutions (i.e. blood components, parenteral nutrition, contrast media, or after obtaining blood sample) use: Peripheral IV = 10 mL Midline or Central Line = 20 mL/lumen Linked Groups Order Group 1: aspirin EC tablet 81 mgJump to med 81 mg, Oral, DAILY, First dose on Mon02/10/21 at 0900
Do NOT administer if bleed present on follow up CT-Head.
Or aspirin suppository 300 mgJump to med 300 mg, Rectal, DAILY, First dose on Mon02/10/21 at 0900
Use suppository if NPO or failed swallow screen.
(unrecognized sect ion and content) No Status Records FoundNo Status Records Found INFORMATION SOURCE (unrecogn ized section and content) DATE CREATED AUTHOR 03/05/2021 [employer] DATE CREATED AUTHOR AUTHOR'S ORGANIZ ATION 11/15/2024 [facility] Care Teams (unrecognized sec tion and content) Team Status: Active Member Role Status Dates Dr. Talia Kaplan MD Family Provider Active Dr. Callie Henriquez MD Primary Care Provider Active Team Status: Inactive Member Role Status Dates Dr. Callie Henriquez MD Primary Care Provider, [facility] Active Team Status: Active Member Role Status Dates Dr. Callie Henriquez MD Primary Care Provider Active Dr. Nick Reynolds MD Attending Provider Active Team Status: Inactive Member Role Status Dates Dr. Callie Henriquez MD Primary Care Provider Active Dr. Cornelius Landaverde MD Attending Provider, [facility] Margaret bergman Active Team Status: Active Member Role/Relationship Status Dates Dr. Talia Kaplan MD Family Provider Active Dr. Callie Henriquez MD Primary Care Provider Active Team Status: Inactive Member Role/Relationship Status Dates Dr. Callie Henriquez MD Primary Care Provider Active Start: October 28, 2024 End: October 28, 2024 Dr. Callie Henriquez MD Attending Provider Active Start: October 28, 2024 End: October 28, 2024 Goals (unrecognized section and content) Goals may be documented in a n alternate sectionGoals may be documented in an alternate section FOR RECORDS PERTAINING TO PATIENTS WHO ARE OR HAVE BEEN ENROLLED IN A CHEMICAL DEPENDENCY/SUBSTANCEABUSE PROGRAM, SOME INFORMATION MAY BE OMITTED. This clinical summary was aggregated from multiple sources. Caution should be exercised in using it in the provision of clinical care. This summary normalizes information from multiple sources, and as a consequence, information in this document may materially change the coding, format and clinical context of patient data. In addition, data may be omitted in some cases. CLINICAL DECISIONS SHOULD BE BASED ON THE PRIMARY CLINICAL RECORDS. [facility] [employer]. provides no warranty or guarantee of the accuracy or completeness of information in this document.
== END | disposition home or self-care (01) ==
LOC: CVS 12:58
PROVIDERS: PCP Internal Medicine; Referring Provider Internal Medicine; Visit Provider Internal Medicine
DX: I65.22 Occlusion and stenosis of left carotid artery (principal)
CPT/HCPCS: 93880

== ENCOUNTER → 2024-12-10 | Outpatient (CLI) | payer MEDICARE, SELFPAY ==
--- NOTE | 2024-12-10 12:00 | RAD_ITS ---
PROCEDURE: SHOULDER MIN 2 VIEWS 12/10/2024 REASON FOR EXAM: RIGHT SHOULDER PAIN TECHNIQUE: Procedure Code: RADSH Modality: DX Procedure: SHOULDER MIN 2 VIEWS Laterality: Right COMPARISON: None. RAD/Shoulder min 2 Views IMPRESSION: No significant arthritic process is seen of the acromioclavicular joint, and no joint narrowing is seen. Minimal right glenohumeral joint degenerative changes are seen, without apparen t joint narrowing. No fracture or dislocation is evident. Reading Location: [place] [id number]
--- NOTE | 2024-12-10 12:00 | RAD_ITS ---
PROCEDURE: CERV SPINE OBL/FLEX/EXT COMP 12/10/2024 REASON FOR EXAM: NECK PAIN TECHNIQUE: Procedure Code: [id number] Modality: DX Procedure: CERV SPINE OBL/FLEX/EXT COMP COMPARISON: None FINDINGS: Vertebrae: No fracture. disc spaces: Disc space narrowing and marginal endplate spurring throughout the cervical spine greatest at C6/7. Uncinate spurring and facet hypertrophy is present greatest at C5/6 on the left. Alignment: Grade 1 anterolisthesis C5 on C6 of approximately 3.3 mm in the neutral position that reduces on extension and is exacerbated on flexion to 8 mm.. Soft tissues: Unremarkable RAD/Cerv Spine Obl/Flex/Ext Comp IMPRESSION: Multilevel degenerative disc disease greatest at C6/7. Grade 1 anterolisthesis of C5 on C6 is present that is dynamic with flexion and extension. Reading Location: [id number]
== END | disposition home or self-care (01) ==
PROVIDERS: PCP Internal Medicine; Referring Provider Anesthesiology Pain Medicine; Visit Provider Anesthesiology Pain Medicine
DX: M54.2 Cervicalgia (principal); M25.511 Pain in right shoulder
CPT/HCPCS: 72052; 73030

== ENCOUNTER → 2024-12-16 | Outpatient (CLI) | payer MEDICARE, SELFPAY ==
--- NOTE | 2024-12-16 09:52 | ECHOD_ITS ---
Reason For Study : MURMUR Procedure This was a 2D Doppler, Color Flow transthoracic echocardiogram. Exam performed in department. Left Ventricle Normal LV size. Mild concentric left ventricular hypertrophy. The left ventricular ejection fraction is 65 %. Stage 1 diastolic dysfunction. Right Ventricle Normal right ventricle. Atria The left and right atria are normal. Mitral Valve Trivial mitral valve insufficiency. Tricuspid Valve Trivial tricuspid valve insufficiency. Normal pulmonary artery pressure. Aortic Valve Trisinus/trileaflet aortic valve. Mild (1+) aortic valve insufficiency. Pulmonic Valve Trivial pulmonic valve insufficiency. Great Vessels Mild to moderately dilated aortic root. Pericardium/Pleural No pericardial effusion. MMode/2D Measurements & Calculations LVIDd: 4.4 cm IVSd: 1.2 cm LVOT diam: 2.0 cm LVIDs: 2.6 cm LVPWd: 1.0 cm LVOT area: 3.1 cm2 RVDd: 3.5 cm FS: 40.5 % asc Aorta Diam: 4.4 cm LAV(MOD-bp): 42.6 ml LVAd ap4: 27.4 cm2 LAV(MOD-bp) Indexed: 21.1 ml/m2 LVLd ap4: 8.6 cm LAV(MOD-sp2): 42.9 ml EDV(MOD-sp4): 71.1 ml LAV(MOD-sp4): 31.4 ml EDV(sp4-el): 73.7 ml LVAs ap4: 15.2 cm2 LVLs ap4: 7.4 cm ESV(MOD-sp4): 25.9 ml ESV(sp4-el): 26.4 ml EF(MOD-sp4): 63.6 % EF(sp4-el): 64.1 % LVAd ap2: 29.7 cm2 SV(MOD-sp4): 45.3 ml SV(MOD-sp2): 57.5 ml LVLd ap2: 8.6 cm SI(MOD-sp4): 22.4 ml/m2 SI(MOD-sp2): 28.4 ml/m2 EDV(MOD-sp2): 85.7 ml EDV(sp2-el): 86.5 ml LVAs ap2: 14.8 cm2 LVLs ap2: 7.3 cm ESV(MOD-sp2): 28.2 ml ESV(sp2-el): 25.5 ml EF(MOD-sp2): 67.1 % SV(sp4-el): 47.3 ml Ao sinus diam: 4.[address] Junction: 3.6 cm LA dimension(2D): 3.2 cm LA A4 area: 13.0 cm2 RA A4 area: 11.5 cm2 TAPSE: 2.1 cm Time Measurements MV dec time: 0.23 sec Doppler Measurements & Calculations MV E max etienne: 80.6 cm/sec Lat Peak E' Etienne: 11.9 cm/sec Med Peak E' Etienne: 9.0 cm/sec MV A max etienne: 71.2 cm/sec E/E' lat: 6.8 E/E' med: 9.0 MV E/A: 1.1 MV dec slope: 344.2 cm/sec2 Ao V2 max: 177.7 cm/sec LV V1 max: 137.3 cm/sec Ao max P.6 mmHg LV V1 max P.5 mmHg Ao V2 mean: 114.9 cm/sec LV V1 mean P.3 mmHg Ao mean P.2 mmHg LV V1 mean: 99.4 cm/sec Ao V2 VTI: 31.8 cm LV V1 VTI: 21.6 cm AV (velocity ratio): 0.68 YOVANA(I,D): 2.1 cm2 YOVANA(V,D): 2.4 cm2 SV(LVOT): 66.2 ml PA V2 max: 94.2 cm/sec TR max etienne: 226.8 cm/sec TR max P.7 mmHg ECHO/Echo Complete Interpretation Summary The left ventricular ejection fraction is 65 %. Stage 1 diastolic dysfunction. Mild (1+) aortic valve insufficiency. Mild to moderately dilated aortic root. Aortic root measured at 4.4 cm. Previou sly reported at 4.1 cm in May 2022. Ordering Physician: Callie Henriquez Referring Physician: Callie Henriquez Performed By: Zuleyma Cooper LICO
== END | disposition home or self-care (01) ==
PROVIDERS: PCP Internal Medicine; Referring Provider Internal Medicine; Visit Provider Internal Medicine
DX: R01.1 Cardiac murmur, unspecified (principal); F17.210 Nicotine dependence, cigarettes, uncomplicated; I77.810 Thoracic aortic ectasia
CPT/HCPCS: 93306

== ENCOUNTER → 2025-01-24 | Outpatient (CLI) | payer MEDICARE, SELFPAY ==
[2025-01-24 12:40] LABS: Anion Gap 12 (5-15); BUN 17 mg/dL (4-19); BUN/Creat Ratio 20.6 RATIO (10-20); Calcium,Total 9.5 mg/dL (7.6-11.0); Carbon Dioxide 21.5 mmol/L (21.0-32.0); Chloride 107 mmol/L (98-108); Cholesterol 125 mg/dL (<=200); Glucose 91 mg/dL (70-99); Low Density Lipoprotein Calc. 61 mg/dL; Potassium 4.3 mmol/L (3.3-5.1); Triglycerides 87 mg/dL; Very Low Density Lipoprotein 17 mg/dL (5-40); cholesterol:hdl ratio screen 2.68
== END | disposition home or self-care (01) ==
LOC: LAB 10:42
PROVIDERS: Internal Medicine Cardiovascular Disease; PCP Internal Medicine; Referring Provider Student in an Organized Health Care Education/Training Program; Visit Provider Student in an Organized Health Care Education/Training Program
DX: I77.810 Thoracic aortic ectasia (principal); E78.5 Hyperlipidemia, unspecified
CPT/HCPCS: 36415; 80048; 80061

== ENCOUNTER → 2025-02-13 | Outpatient (CLI) | payer MEDICARE, SELFPAY ==
--- NOTE | 2025-02-13 15:58 | CT_ITS ---
PROCEDURE: CTA CHEST W/WO CONTRAST 02/13/2025 REASON FOR EXAM: THORACIC DILATATION TECHNIQUE: Procedure Code: [id number] Modality: CT Procedure: CTA CHEST W/WO CONTRAST Multiplanar Sagittal and Coronal images were obtained. CONTRAST: Isovue 370 VOLUME: 100 mL One or more dose reduction techniques were used (e.g., Automated exposure control, adjustment of the mA and/or kV according to patient size, use of iterative reconstruction technique). RADIATION DOSE SUMMARY: CTDlvol: 14+ 6 mGy DLP: 238 mGycm FINDINGS: The peripheral soft tissues unremarkable. No acute osseous abnormalities. The thyroid is unremarkable. Normal caliber esophagus. The upper abdomen is unremarkable. The ascending thoracic aorta measures 4.0 cm in diameter compatible with ectasia. Mild atherosclerosis of the aortic arch. No evidence of aortic dissection. Coronary artery calcifications are present. The heart is normal in size. No pulmonary artery filling defects. The lungs are clear. CT/CTA Chest W/WO Contrast IMPRESSION: Ascending thoracic aorta measures 4.0 cm, compatible with ectasia. No evidence of aortic dissection. No pulmonary embolus. Coronary artery calcifications. Lungs clear. Reading Location: [id number]
== END | disposition home or self-care (01) ==
LOC: CT 15:56
PROVIDERS: PCP Internal Medicine; Referring Provider Internal Medicine Cardiovascular Disease; Visit Provider Internal Medicine Cardiovascular Disease
DX: I77.810 Thoracic aortic ectasia (principal)
CPT/HCPCS: 71275; Q9967